=== PATIENT | female | born 1950 | race Caucasian/White ===

== ENCOUNTER 2021-11-02 00:48 | Day surgery (SDC) | payer MEDICARE, SELFPAY ==
[2021-10-20 15:32] VITALS: BMI 48.4
[2021-11-02 11:48] VITALS: BP 152/86; PULSE 68; RESP 22; TEMP 36.5; O2SAT 99
[2021-11-02] MEDS: LACTATED RINGERS 1,000 ML 150 ML IV CONT (11:50)
--- NOTE | 2021-11-02 11:55 | WPDHPUPDATE1 ---
History and Physical Update Update Date/Time: 11/02/21 11:55 Stool confirmed be Hemoccult positive with iron deficient indices confirming iron deficiency anemia. Plan to proceed with colonoscopy an EGD. History and Physical has been reviewed, including an updated exam of the patient. There are NO changes in the patient's condition. Risks, benefits, and alternatives have been discussed and questions answered. Patient agrees to proceed with procedure.
--- NOTE | 2021-11-02 12:02 | WPDANESEPPF ---
Anes - Initial Pre Proc Eval Procedure: Operation Date: 11/02/21 13:00 Proposed Procedures p Esophagogastroduodenoscopy & Colonoscopy - Warren Ferreira MD Date/Time: 11/02/21 12:02 Surgeon: Warren Ferreira MD Pre Op Diagnosis: microcytic anemia Patient Data Age: 71 Gender: F Height: 1.68 m Weight: 128.2 kg Last Vital Signs Temp 97.7 F 11/02/21 11:48 Pulse 68 11/02/21 11:48 Resp 22 H 11/02/21 11:48 BP 152/86 H 11/02/21 11:48 Pulse Ox 99 11/02/21 11:48 O2 Del Method Room Air 11/02/21 11:48 Allergies Allergy/AdvReac Type Severity Reaction Status Date / Time latex Allergy Blister Verified 11/02/21 11:42 Home Medications Medication Instructions Recorded Confirmed Type acetaminophen 500 mg tablet 500 mg PO Q4H PRN Pain 01/12/19 10/20/21 History (Tylenol Extra Strength) carvedilol 25 mg tablet 25 mg PO Q12H 01/12/19 10/20/21 History hydralazine 25 mg tablet 25 mg PO TID 01/12/19 10/20/21 History potassium chloride 8 mEq 8 meq PO DAILY 01/12/19 10/20/21 History capsule,extended release apixaban 5 mg tablet (Eliquis) 5 mg PO BID 03/29/21 10/20/21 History furosemide 20 mg tablet 20 mg PO QAM 03/29/21 03/29/21 History metolazone 2.5 mg tablet 2.5 mg PO DAILY 03/29/21 10/20/21 History temazepam 15 mg capsule 15 mg PO QHS PRN Insomnia 03/29/21 10/20/21 History venlafaxine 75 mg tablet 75 mg PO DAILY 03/29/21 10/20/21 History amiodarone 200 mg tablet 200 mg PO DAILY 10/11/21 10/20/21 History pantoprazole 20 mg tablet,delayed 20 mg PO QAM 10/11/21 10/20/21 History release peg 3350-electrolytes 236 240 ml PO Q10M #4,000 mL 10/17/21 Rx gram-22.74 gram-6.74 gram-5.86 gram solution (Golytely) vit C 250 mg-vit E 90 mg-zinc 40 1 tablet PO BID 10/20/21 10/20/21 History mg-copper 1 [id number] capsule (PreserVision AREDS-2) Patient hx anesthesia problems: none Family hx anesthesia problems: none Results Review: All pre-operative results and documents have been reviewed as part of the pre-operative evaluation. [facility] Past Medical History Medical History (Updated 10/11/21 @ 14:45 by Warren Ferreira MD) CHF (congestive heart failure) GERD (gastroesophageal reflux disease) Hx of acute arthritis Hx of cataract Hx of diverticulitis of colon Hypertension Surgical History Surgical History (Updated 10/11/21 @ 14:18 by Crystal Dixon CMA) Hx laparoscopic cholecystectomy Hx of section Family History Family History (Updated 10/11/21 @ 14:18 by Crystal Dixon CMA) Father Hypertension Social History Social History (Updated 10/11/21 @ 14:19 by Crystal Dixon CMA) Social History: PT stop smoking 02/2012. Pt stated Vap at least once a day since 03/2018. Smoking packs per day: 2 Smoking cigarettes per day: 40.0 Years smoked: 30 Smoking pack-years: 60.00 Smoking status: Former smoker Tobacco type: e-cigarettes/vaping Alcohol intake: never Substance use: never Living arrangements: with family Spiritual care concerns: No Anes - Eval Final PreProcedure Day of Procedure 11/02/21 12:02 Patient weight: morbidly obese Heart: irregular rhythm Lungs: clear to auscultation Airway: Mallampati scale class III Neurological: alert and oriented Last oral intake: >/= 8 hours ASA classification: IV Emergent: no Anesthetic plan: proceed Anesthesia type and monitoring: general GIVS and standard monitoring Results Review: All pre-operative results and documents have been reviewed as part of the pre-operative evaluation. Informed Consent: The patient's anesthetic plan and its attendant risks and benefits were discussed with the patient/family/POA. Questions were solicited and answers provided to the satisfaction of the patient/family/POA.
[2021-11-02] MEDS: BENZOCAINE (*SP) 60 ML SPRAY CAN (HURRICAINE) 1 SPRAY MUCOUS MEM (12:41)
--- NOTE | 2021-11-02 13:15 | SUR.OPER ---
EGD START 1242, END 1244 COLONOSCOPY START 1250, END 1314
[2021-11-02 13:21] VITALS: BP 118/59; PULSE 70; RESP 25; O2SAT 100
[2021-11-02 13:31] VITALS: BP 133/71; PULSE 70; RESP 21; O2SAT 96
[2021-11-02 13:41] VITALS: BP 133/70; PULSE 71; RESP 22; O2SAT 93
== END 2021-11-02 13:57 | disposition home or self-care (01) ==
PROVIDERS: PCP Internal Medicine; Visit Provider Internal Medicine Gastroenterology
PROC: 0DJ08ZZ Inspection of Upper Intestinal Tract, Via Natural or Artificial Opening Endoscopic (ICD-10-PCS; CPT 43235; principal; 2021-11-02 13:00)
DX: D50.9 Iron deficiency anemia, unspecified (principal); K92.1 Melena; K64.8 Other hemorrhoids; K57.30 Diverticulosis of large intestine without perforation or abscess without bleeding; K44.9 Diaphragmatic hernia without obstruction or gangrene; K21.9 Gastro-esophageal reflux disease without esophagitis; I11.0 Hypertensive heart disease with heart failure; I50.9 Heart failure, unspecified; F17.290 Nicotine dependence, other tobacco product, uncomplicated; E66.01 Morbid (severe) obesity due to excess calories; Z68.42 Body mass index [BMI] 45.0-49.9, adult
CPT/HCPCS: 45378; 43235; J2704; J7120

== ENCOUNTER 2022-12-05 15:01 | Outpatient (CLI) | payer MEDICARE, SELFPAY ==
--- NOTE | ~2022-12-05 | MM_ITS ---
EXAMINATION: MM screening [facility] BI w alison HISTORY: Screening mammogram TECHNIQUE: Craniocaudal and mediolateral oblique 3-D tomosynthesis images were obtained and synthetic 2-D images were generated. CAD analysis was submitted and interpreted. COMPARISON: 03/26/2017, 08/03/2013, 04/01/2012, 03/25/2012 BREAST PARENCHYMAL COMPOSITION: The breasts are almost entirely fatty. FINDINGS: No suspicious mass, calcification, or architectural distortion are identified in either carmina ast to suggest malignancy. There has been no suspicious interval change. IMPRESSION: 1. No mammographic evidence of malignancy. 2. Recommend routine screening mammography in one year. BI-RADS Category 1: Negative Reviewed, dictated and finalized at location A.
--- NOTE | ~2022-12-05 | DEXA_ITS ---
Bone Density Report Name: ESTEBAN SAEZ Age: 72 Sex: Female Ethnicity: White Date of : 1950 Indication: postmenopausal; screening for osteoporosis; height loss; inflammatory bowel disease; history of glucocorticoids; Referring Provider: ISA, LALA Quintanilla Study: Bone densitometry was performed. Exam Date: December 05, 2022 Accession number: [id number] Bone Density: Region BMD T-score Z-score Classification AP Spine(L1-L4) 1.128 0.7 3.1 Normal Femoral Neck (Left) 0.545 -2.7 -0.7 Osteoporosis Total Hip (Left) 0.747 -1.6 0.2 Osteopenia Femoral Neck (Right) 0.527 -2.9 -0.8 Osteoporosis Total Hip (Right) 0.690 -2.1 -0.3 Osteopenia Total Hip Mean 0.718 -1.9 -0.1 Osteopenia World Health Organization criteria for BMD impression classify patients as: Normal (T-score at or above -1.0), Osteopenia (T-score between -1.0 and -2.5), or Osteoporosis (T-score at or below -2.5). 10-year Fracture Risk: FRAX not reported because: Some T-score for Spine Total or Hip Total or Femoral Neck at or below -2.5 Clinical Information Provided by Patient: Has taken Glucocorticoids Has the following medical conditions: Inflammatory bowel diseases Patient maximum height was 67 Menopause Age: 48 No regular weight bearing exercise Does not regularly consume dairy products Drinks caffeinated beverages Onset of menses at age 13 Number of children 2 Impression: The patient has osteoporosis, based on the Right Femoral Neck T-score. The patient has risk factors, including: history of glucocorticoid therapy. Discussion: INCREASED RISK OF FRACTURE. BONE DENSITY IS UNDESIRABLY LOW AT ONE OR MORE SKELETAL SITES, CONSISTENT WITH POSTMENOPAUSAL OSTEOPOROSIS. This patient's lowest T-score meets the World Health Organization's (WHO) criteria for osteoporosis at one or more sites (T-score -2.5 or below). In untreated patients, the risk of osteoporotic fracture increases approximately two-fold for each 1.0 SD decrease in T-score. Low bone density is not the only risk factor for fracture; also consider factors such as patient's age, frailty or poor health, risk of falling, risk of injury, previous osteoporotic fracture, family history of osteoporosis, cigarette smoking, low body weight, etc. Not everyone with low bone mineral density has osteoporosis; osteomalacia and other metabolic bone disorders should also be considered. Patients who have osteoporosis should be evaluated for specific diseases and conditions (secondary causes) that may cause or contribute to bone loss. The [place] Association of Clinical Endocrinologists (AACE) and National Osteoporosis Foundation (NOF) recommend pharmacologic intervention for all postmenopausal women whose T-score is in this range. The patient should follow a healthful lifestyle (good nutriti
== END 2022-12-05 15:02 | disposition home or self-care (01) ==
LOC: ANHIMG 15:03
PROVIDERS: PCP Internal Medicine; Visit Provider Internal Medicine
DX: Z12.31 Encounter for screening mammogram for malignant neoplasm of breast (principal); M81.0 Age-related osteoporosis without current pathological fracture; M85.852 Other specified disorders of bone density and structure, left thigh; M85.851 Other specified disorders of bone density and structure, right thigh
CPT/HCPCS: 77063; 77067; 77080

== ENCOUNTER 2025-02-17 03:45 | Day surgery (SDC) | payer MEDICARE, SELFPAY ==
[2025-02-12 13:33] VITALS: BMI 42.7
--- NOTE | 2025-02-12 13:59 | PC.NURSE ---
Spoke with patient regarding medication Eliquis. Patient verbalizes understanding that the last dose is to be taken on 02/13/25 and the Endoscopist will instruct them when to restart after the procedure.
--- OUTSIDE RECORDS SUMMARY | 2025-02-17 03:47 | XMS_ITS | Encounter Summary ---
Author Organization [facility] Address [address] [place] [address] Phone Care Team Providers Care Seo Specialist Name Role Phone Haim Dee MD Primary Care Provider Encounter Details Date Type Department Care Team (Late st Contact Info) Description 04/20/2017 Orders Only [facility] CLINCONV Provider, MD Lashanda [address] [place] [id number] Social History Tobacco Use Types Packs/Day Years Used Date Smoking Tobacco: Former Comments Unknown Sex and Gender Information Value Date Recorded Sex Assigned at Not on file 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 Historical Provider [facility] PREM LIN Final Result documented in this encounter Visit Diagnoses Not on filedocumented in this encounter Care Teams Seo Specialist Relationship Specialty Start Date End Date Haim Dee MD PCP - General 05/21/16 documented as of this encounter
--- OUTSIDE RECORDS SUMMARY | 2025-02-17 03:47 | XMS_ITS | Encounter Summary ---
Author Organization [facility] Address [address] [place] [address] Phone Care Team Providers Care Roll Up Guider Operator Name Role Phone Haim Dee MD Primary Care Provider Encounter Details Date Type Department Care Team (Late st Contact Info) Description 02/12/2025 Telephone [facility] Medicine Cardiology [address] [facility] Advanced Medicine 8th [place] [address] [place] [phone] Lamont Braun MD [address] [facility] [address] [place], [place] [id number] Social History Tobacco Use Types Packs/Day Years Used Date Smoking Tobacco: Some Days Cigarettes Last attempted to quit: 03/22/2012 Vaping Smokeless Tobacco: Never Comments:vaps Alcohol Use Standard Drinks/Week Comments Yes 0 (1 standard drink = 0.6 oz pur e alcohol) rarely AUDIT-C Answer Date Recorded Q1: How often do you have a drink containing alc ohol? Monthly or less 10/26/2020 Q2: How many drinks containi ng alcohol do you have on a typical day when you are drinking? 1 or 2 10/26/2020 Q3: How often do you have si x or more drinks on one occasion? 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 She will call back if she does not receive. ASSET MANAGER * Telephone Encounter - Angelica Soliman - 02/12/2025 1:08 PM CST Kade Ware w/ [employer] calling and states she did not receive fax. Please try the following number: FAX [phone] ASSET MANAGER * Telephone Encounter - Shani Arenas RN - 02/12/2025 11:04 AM REO ASSET MANAGER Called and spoke to Jeanie at [facility]. Verified fax number with her as form has already been faxed x2. She confirmed correct fax number. Form faxed again. She states she will call back this afternoon if he has not received and provide another fax number. ASSET MANAGER * Telephone Encounter - Minna Grace - 02/12/2025 10:45 AM CST Kade Ware with [employer] calling re: Holding Medication Form for pt. Pls refer to Enc dated 02/08/25 re: Clearance faxed Looks like it was scanned into the system on 01/27/95. She has not recvd this completed and signed form as of yet. Pt is needing to hold her Plavix beginning tomorrow, 02/13/25. She did recv the CRMD form. Pls send as soon as possible ASSET MANAGER documented in this encounter Plan of Treatment Not on file documented as of this encounter Visit Diagnoses Not on filedocumented in this encounter Care Teams Roll Up Guider Operator Relationship Specialty Start Date End Date Haim Dee MD PCP - General 05/21/16 documented as of this encounter
--- OUTSIDE RECORDS SUMMARY | 2025-02-17 03:47 | XMS_ITS | Encounter Summary ---
Author Organization [facility] Address [address] [place] [address] Phone Care Team Providers Care Cook Soup Name Role Phone Haim Dee MD Primary Care Provider Encounter Details Date Type Department Care Team (Late st Contact Info) Description 02/08/2025 Telephone [facility] Medicine Cardiology [address] [facility] Advanced Medicine 8th [place] [address] [place] [phone] Lamont Braun MD [address] [facility] [phone] [phone] Social History Tobacco Use Types Packs/Day Years [...] on file 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 CREW LABORER * Telephone Encounter - Candice Smith - 02/08/2025 4:08 PM CST Kade Vance fax clearance that was sent over on 01/27/25 to [facility]. FAX # [phone] CREW LABORER documented in this encounter Plan of Treatment Not on file documented as of this encounter Visit Diagnoses Not on filedocumented in this encounter Care Teams Cook Soup Relationship Specialty Start Date End Date Haim Dee MD PCP - General 05/21/16 documented as of this encounter
--- OUTSIDE RECORDS SUMMARY | 2025-02-17 03:47 | XMS_ITS | Encounter Summary ---
Author Organization [facility] Address [address] [place] [address] Phone Care Team Providers Care Pressure Dispatcher Name Role Phone Haim Dee MD Primary Care Provider Encounter Details Date Type Department Care Team (Late st Contact Info) Description 03/20/2016 Orders Only [facility] CAR CLINCONV Provider, MD Lashanda [address] [place] [id number] Social History Tobacco Use Types Packs/Day Years Used Date Smoking Tobacco: Never Assessed Comments Unknown Sex and Gender Information Value Date Recorded Sex Assigned at Not on file 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 Historical Provider [facility] CARDIAC SERVICES PREM LIN Final Result documented in this encounter Visit Diagnoses Not on filedocumented in this encounter Care Teams Pressure Dispatcher Relationship Specialty Start Date End Date Haim Dee MD PCP - General 05/21/16 documented as of this encounter
--- OUTSIDE RECORDS SUMMARY | 2025-02-17 03:47 | XMS_ITS | Clinical Summary ---
Author Organization [facility] al Address [address] [place] [address] Care Team Providers Care Application Packaging Specialist Name Role Phone Haim Dee MD Primary Care Provider Allergies Active Allergy Reactions Criticality Noted Date Comments Latex Blisters High 06/30/2019 Medications acetaminophen (TYLENOL) 500 mg tablet Take 2 tablets (1,000 mg total) by mouth 2 (two) times a day Active metroNIDAZOLE (FLAGYL) 500 mg tabletIndicatio ns:DIVERTICULIT IS Take 1 tablet (500 mg total) by mouth 3 (three) times a day Active temazepam (RESTORIL) 30 mg capsule Take 1 capsule (30 mg total) by mouth nightly 08/21/2021 Active venlafaxine XR (EFFEXOR-XR) 75 mg 24 hr capsule Take 1 capsule (75 mg total) by mouth daily 08/29/2021 Active bumetanide (BUMEX) 1 mg tablet Take 1 tablet (1 mg total) by mouth every morning 01/23/2022 Active spironolactone (ALDACTONE) 25 mg tablet Take 1 tablet (25 mg total) by mouth every morning 01/22/2022 Active alendronate (FOSAMAX) 70 mg tablet Take 1 tablet (70 mg total) by mouth once a week 1/2 tablet every seven days Active iron,carbonyl-v itamin C 65 mg iron- 125 mg tablet,delayed release (DR/EC) Take by mouth Active carvediloL (COREG) 25 mg tablet Take 1.5 tablets (37.5 mg total) by mouth 2 (two) times a day with meals 405 tablet 3 01/01/2024 Active Eliquis 5 mg tablet TAKE 1 TABLET(5 MG) BY MOUTH TWICE DAILY 180 tablet 3 05/27/2024 Active olmesartan (BENICAR) 5 mg tablet Take 1 tablet (5 mg total) by mouth nightly 05/12/2024 Active Bacillus coagulans/inuli n (PROBIOTIC WITH PREBIOTIC ORAL) Take by mouth Active amiodarone (PACERONE) 200 mg tablet TAKE 1 TABLET(200 MG) BY MOUTH EVERY NIGHT 90 tablet 12/24/2024 Active Active Problems Problem Noted Date Diagnosed Date Cardiomyopathy, dilated, nonischemic 06/20/2018 Atrial fibrillation 11/20/2017 LBBB (left bundle branch block) 11/20/2017 Cardiomyopathy, idiopathic 11/20/2017 Ptosis of both eyelids 10/21/2017 Overview (10/21/2017): Added automatically from request for surgery [id number] Decreased peripheral vision of both eyes 018 Overview (10/21/2017): Added automatically from request for surgery [id number] Hyperkalemia 07/25/2015 Congestive heart failure 04/18/2012 Hypertension Resolved Problems Problem Noted Date Diagnosed Date Resolved Date ICD (implantable cardioverte r-defibrillator) in place 11/20/2017 09/14/2021 Encounters Date Type Department Care Team Description 02/12/2025 Telephone [facility] Cardiology [address] [facility] 8th [place] [address] [place] [address] Lamont Braun MD 02/08/2025 Telephone [facility] Cardiology [address] [facility] 8th [place] [address] [place] [address] Lamont Braun MD 01/27/2025 Telephone [facility] Cardiology [address] [facility] 8th [place] [address] [place] [address] Cristhian Reagan 01/27/2025 Documentation [facility] Medicine Cardiology [address] [facility] 8th [place] [address] [place] [phone] Brianda Shoemaker, LORI 12/23/2024 4:00 PM CDT Lab [facility] Endocrinology Metabolism and Lipid [facility] [address] [phone] Persistent atrial fibrillation (HCC); High risk medication use 12/23/2024 3:30 PM CDT Office Visit [facility] Cardiology [address] [place] [address] [place] [phone] Lalitha Britton NP High risk medication use (Primary Dx); Persistent atrial fibrillation (HCC) 12/23/2024 2:45 PM CDT Ancillary Procedure [facility] Cardiology [address] [place] [phone] Cardiomyopathy, dilated, nonischemic (HCC) (Primary Dx); NICM (nonischemic cardiomyopathy) (HCC); Fitting and adjustment of automatic implantable cardioverter-defibr illator; Persistent atrial fibrillation (HCC); LBBB (left bundle branch block) 12/23/2024 1:15 PM CDT Office Visit [facility] Cardiology [address] [place] [phone] Lamont Braun MD Cardiomyopathy, dilated, nonischemic (HCC) (Primary Dx); LBBB (left bundle branch block); Paroxysmal atrial fibrillation (HCC) 12/23/2024 Results Follow-Up [facility] Cardiology [address] [facility] Medical Office Building [address] [place] [address] Lalitha Britton NP ECG 12 lead 12/10/2024 Remote Device Check [facility] Cardiology [address] [place] [phone] Curt Duggan MD from Last 3 Months Immunizations Immunization Administration Dates Next Due Influenza, Unspecified 11/26/2019 Surgical History Surgery Date Site/Laterality Comments CT DELIVERY ONLY Section - (Added by TW Conv) CT CHOLECYSTECTOMY Cholecystectomy - (Added by TW Conv) CATARACT EXTRACTION Bilateral Left eye 2013/Right eye 2017 COLONOSCOPY CARDIAC DEFIBRILLATOR PLACEMENT 03/04/2012 - 03/03/2013 biventricular BLEPHAROPTOSIS REPAIR 11/22/2017 Bilateral S/P Bilateral upper eyelid ptosis repair with levator advancement . CARPAL TUNNEL RELEASE 07/03/2019 - 08/02/2019 Left Medical History Medical History Date Comments Atrial fibrillation (HCC) Cardiomyopathy, dilated, nonischemic (HCC) GERD (gastroesophageal reflux disease) Hypertension Sleep apnea 2012 uses CPAP Family History Medical History Relation Name Comments Heart defect Mother Family history of cardiomegaly - (Added by TW Conv)/Family history of cardiomegaly - (Added by TW Conv) Anesthesia problems Neg Hx Relation Name Status Comments Mother Social History Tobacco Use Types Packs/Day Years Used Date Smoking Tobacco: Some Days Cigarettes Last attempted to quit: 03/22/2012 Vaping Smokeless Tobacco: Never Tobacco Cessation:Ready to Q uit: Not Asked; Counseling Given: Not Answered Comments:vaps Alcohol Use Standard Drinks/Week Comments Yes [...] on file 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 Gender Identity Not on file Sexual Orientation Not on file Last Filed Vital Signs Vital Sign Reading Time Taken Comments Blood Pressure 104/68 12/23/2024 2:11 PM CDT Pulse 68 12/23/2024 2:11 PM CDT Temperature 36.6 C (97.9 F) 11/29/2020 11:38 AM CDT Respiratory Rate 24 10/26/2020 10:10 AM CDT Oxygen Saturation 99% 12/23/2024 2:11 PM CDT Inhaled Oxygen Concentration - - Weight 119.7 kg (264 lb) 12/23/2024 2:11 PM CDT Height 170.2 cm (5' 7) 12/23/2024 2:11 PM CDT Body Mass Index 41.35 12/23/2024 2:11 PM CDT Plan of Treatment Health Maintenance Due Date Last Done Comments Depression Screening 1950 Hepatitis C Screening 1950 Osteoporosis Screening-Bone Density Scan 1948 Hepatitis B Screening 1966 Well Visit 65+ 2013 Pneumococcal vaccine 65+ (2 of 2 - PPSV23, PCV20, or PCV21) 04/20/2014 02/23/2014 Zoster Vaccine (2 of 3) 05/27/2014 04/01/2014 Fall Risk Assessment 10/26/2021 10/26/2020 Covid-19 Vaccine (4 - 2024-2 6 season) 2024 03/08/2021, 06/12/2020, 05/19/2020 Influenza Vaccine (#1) 2024 , 12/19/2021, 11/26/2019, Additional history exists DTaP/Tdap/Td Vaccine (2 - Td or Tdap) 12/28/2028 12/28/2018 Breast Cancer Screening-Mammogram Discontinued 023 Medical Devices Implanted Type Area Risk Control Field Representative Device Identifier Shelf Expiration Date Model / Serial / Lot Icd ICD Left: Chest [facility] [employer] Medical Description:[employer]arshil pacemak er/defibrillator [employer] [id number] Quadra Assura Mp 60l12to Df-4 Is4 Is-1 Connector [id number] - [id number] - [id number] Implanted:Qty: 1 on 03/14/2020 by Curt Duggan MD at [facility] ICD [facility] [employer] 03/03/2022 [id number] / [id number] / Description:Bi-V ICD generat or Procedures Procedure Name Priority Date/Time Associated Diagnosis Comments ALT Routine 12/23/2024 3:21 PM CDT Persistent atrial fibrillation (HCC) High risk medication use AST Routine 12/23/2024 3:21 PM CDT Persistent atrial fibrillation (HCC) High risk medication use TSH Routine 12/23/2024 3:21 PM CDT Persistent atrial fibrillation (HCC) High risk medication use T4, FREE Routine 12/23/2024 3:21 PM CDT Persistent atrial fibrillation (HCC) High risk medication use ECG 12-LEAD Routine 12/23/2024 2:28 PM CDT Persistent atrial fibrillation (HCC) DEVICE CHECK - IN OFFICE Routine 12/23/2024 1:20 PM CDT NICM (nonischemic cardiomyopathy) (HCC) Fitting and adjustment of automatic implantable cardioverter-defibril lator Persistent atrial fibrillation (HCC) LBBB (left bundle branch block) Cardiomyopathy, dilated, nonischemic (HCC) DEVICE CHECK - REMOTE Routine 12/10/2024 from Last 3 Months Results * ALT (12/23/2024 3:21 PM CDT) ALT (SGPT) 13 6 - 53 IU/L [facility] Blood 12/23/2024 3:21 PM CDT 12/23/2024 4:13 PM CDT Lalitha Britton NP LAB BLOOD ORDERABLES Fin al Result Performing Organization Address [facility] Co de Phone Number [facility] * AST (12/23/2024 3:21 PM CDT) AST (SGOT) 14 11 - 47 IU/L [facility] Blood 12/23/2024 3:21 PM CDT 12/23/2024 4:13 PM CDT Lalitha Britton NP LAB BLOOD ORDERABLES Fin al Result Performing Organization Address [facility] Co de Phone Number [facility] * TSH (12/23/2024 3:21 PM CDT) TSH (Thyrotropin) 2.06 0.27 - 4.20 uIU/mL [facility] Blood 12/23/2024 3:21 PM CDT 12/23/2024 4:13 PM CDT Lalitha Britton AUTOMATIC GRINDING MACHINE OPERATOR LAB BLOOD ORDERABLES Fin al Result Performing Organization Address [facility]/ZIP Co de Phone Number [facility] * T4, free (12/23/2024 3:21 PM CDT) Free T4 1.20 0.80 - 1.80 ng/dL [facility] Blood 12/23/2024 3:21 PM CDT 12/23/2024 4:13 PM CDT Lalitha Britton AUTOMATIC GRINDING MACHINE OPERATOR LAB BLOOD ORDERABLES Fin al Result Performing Organization Address [facility] de Phone Number [facility] * ECG 12 lead (12/23/2024 2:28 PM CDT) Lalitha Britton AUTOMATIC GRINDING MACHINE OPERATOR ECG ORDERABLES Edited R esult - Final * DEVICE CHECK - IN OFFICE (12/23/2024 1:20 PM CDT) Anatomical Region Laterality Modality Other 12/23/2024 12/23/2024 Narrative 12/24/2024 10:03 PM CDT In-clinic interrogation of CLOTH CALENDER-D Incision Site: Left pectoral site without inflammation or adherence Device Functionality Device: Normal function Lead trends: Appear stable Estimated battery longevity: 1 years 3 months Atrial pacin.0% BiV pacin.0% Interrogation Presenting rhythm: APVP + PVCs Underlying rhythm: sinus rhythm Heart rate histograms: nml Episodes Ventricular high-rate episodes: none Atrial high-rate episodes: 3 EGMs show noise on atrium and LV short duration 10- 12 seconds AT/AF Blum:0 % Programming Changes: no changes Plan: will continue with BEBE and will return when okay by Lalitha Britton NP Procedure Note Curt Duggan MD - 10/23/2025 In-clinic interrogation of CLOTH CALENDER-D Incision Site: Left pectoral site without inflammation or adherence Device Functionality Device: Normal function Lead trends: Appear stable Estimated battery longevity: 1 years 3 months Atrial pacin.0% BiV pacin.0% Interrogation Presenting rhythm: APVP + PVCs Underlying rhythm: sinus rhythm Heart rate histograms: nml Episodes Ventricular high-rate episodes: none Atrial high-rate episodes: 3 EGMs show noise on atrium and LV shortduration 10- 12 seconds AT/AF Blum:0 % Programming Changes: no changes Plan: will continue with BEBE and will return when okay by Lalitha Britton NP us Curt Duggan MD [facility] CARDIAC SERVICES PRO CEDURES Final Result * DEVICE CHECK - REMOTE (12/10/2024) Anatomical Region Laterality Modality Other 12/10/2024 12/10/2024 Narrative 12/24/2024 10:02 PM CDT Device Summary Remote interrogation of Ford ([employer]arshil) CLOTH CALENDER-D Date of Implant: Mar 14, 2020 Programmed Mode: DDD Lower Rate: 70 bpm Device Functionality Presenting rhythm: Ap-BiVp 70 Device: Normal function Estimated Battery Longevity: 1 years 2 months. Leads: Appear stable Atrial Pacin.0 % CLOTH CALENDER Pacin.0 % Episodes since 09-10-24 No SVT / VT / VF episodes AT/AF burden: 0% Atrial mode switches due to noise / over-sensing LORENA Ragland RN Procedure Note Curt Duggan MD - 12/24/2024 Device Summary Remote interrogation of Ford ([employer]arshil) CLOTH CALENDER-D Date of Implant: Mar 14, 2020 Programmed Mode: DDD Lower Rate: 70 bpm Device Functionality Presenting rhythm: Ap-BiVp 70 Device: Normal function Estimated Battery Longevity: 1 years 2 months. Leads: Appear stable Atrial Pacin.0 % CLOTH CALENDER Pacin.0 % Episodes since 09-10-24 No SVT / VT / VF episodes AT/AF burden: 0% Atrial mode switches due to noise / over-sensing LORENA Ragland RN us Curt Duggan MD CV CARDIAC SERVICES PRO CEDURES Final Result from Last 3 Months Insurance UHC MEDICARE ADVANTAGE AET MEDICARE [facility] MEDICARE Address: [facility] [address] [place] [address] [facility] MED[facility] Advance Directives For more information, please contact: [phone] * Full Code (Latest Code Status on File) Date Activated Date Inactivated Comments 10/26/2020 9:36 AM 10/26/2020 2:33 PM * Full Code Date Activated Date Inactivated Comments 10/21/2017 10:27 AM 10/21/2017 12:27 PM Care Teams Application Packaging Specialist Relationship Specialty Start Date End Date Hiam Dee MD PCP - General 05/21/16
--- OUTSIDE RECORDS SUMMARY | 2025-02-17 03:47 | XMS_ITS | Encounter Summary ---
Author Organization [facility] Address [address] [place] [address] Phone Care Team Providers Care Buckle Stringer Name Role Phone Haim Dee MD Primary Care Provider Encounter Details Date Type Department Care Team (Late st Contact Info) Description 12/23/2024 Results Follow-Up [facility] Medicine Cardiology [address] [facility] Medical Office Building [address] [place] [address] Lalitha Britton, JEREMIAS [address] [address] ECG 12 lead Social History Tobacco Use Types Packs/Day Years [...] on file 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
--- OUTSIDE RECORDS SUMMARY | 2025-02-17 03:47 | XMS_ITS | Encounter Summary ---
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 Gender Identity Not on file Sexual Orientation Not on file documented as of this encounter Plan of Treatment Not on file documented as of this encounter Procedures Procedure Name Priority Date/Time Associated Diagnosis Comments CARDIOLOGY DOCUMENT SCAN 05/08/2022 documented in this encounter Results * CARDIOLOGY DOCUMENT SCAN (05/08/2022) Anatomical Region Laterality Modality Other us Provider Scanning [facility] C[facility]AC SERVICES PROCEDURES Final Result documented in this encounter Visit Diagnoses Not on filedocumented in this encounter Care Teams Staff Reporter Relationship Specialty Start Date End Date Haim Dee MD PCP - General 05/21/16 documented as of this encounter
--- OUTSIDE RECORDS SUMMARY | 2025-02-17 03:47 | XMS_ITS | Encounter Summary ---
Author Organization [facility] Address [address] [place] [address] Phone Care Team Providers Care Weight Loss Sales Consultant Name Role Phone Haim Dee MD Primary Care Provider Encounter Details Date Type Department Care Team (Latest Contact Info) Description 02/06/2018 Orders Only [facility] Scanning, Provider Social History Tobacco Use Types Packs/Day Years Used Date Smoking Tobacco: Former Cigarettes Q uit: 03/22/2012 Smokeless Tobacco: Current Comments:vaps Alcohol Use Standard Drinks/Week Comments Yes 0 (1 standard drink = 0.6 oz pur e alcohol) rarely Comments Unknown Sex and Gender Information Value Date Recorded Sex Assigned at Not on file 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 Gender Identity Not on file Sexual Orientation Not on file documented as of this encounter Progress Notes * Lamont Braun MD - 02/06/2018 11:59 PM CST No acute CV findings here documented in this encounter Plan of Treatment Not on file documented as of this encounter Procedures Procedure Name Priority Date/Time Associated Diagnosis Comments SCAN - RADIOLOGY/IMAGING 02/06/2018 documented in this encounter Results * SCAN - RADIOLOGY/IMAGING (02/06/2018) Anatomical Region Laterality Modality Other us Provider Scanning Final Result documented in this encounter Visit Diagnoses Not on filedocumented in this encounter Care Teams Weight Loss Sales Consultant Relationship Specialty Start Date End Date Haim Dee MD PCP - General 05/21/16 documented as of this encounter
--- OUTSIDE RECORDS SUMMARY | 2025-02-17 03:47 | XMS_ITS | Encounter Summary ---
Author Organization [facility] Address [address] [place] [address] Phone Care Team Providers Care Front Desk Admin Name Role Phone Haim Dee MD Primary Care Provider Encounter Details Date Type Department Care Team (Late st Contact Info) Description 03/24/2017 Orders Only [facility]INCON[facility] Provider, MD Lashanda [address] [place] [id number] Social History Tobacco Use Types Packs/Day Years Used Date Smoking Tobacco: Never Assessed Comments Unknown Sex and Gender Information Value Date Recorded Sex Assigned at Not on file Legal Sex Female 2:31 AM ADMINISTRATIVE SUPPORT ASSOC Gender Identity Not on file Sexual Orientation Not on file documented as of this encounter Plan of Treatment Not on file documented as of this encounter Procedures Procedure Name Priority Date/Time Associated Diagnosis Comments CARDIOLOGY REPORT 03/24/2017 documented in this encounter Results * CARDIOLOGY REPORT (03/24/2017) Anatomical Region Laterality Modality Other Narrative 03/24/2017 Ordered by an unspecified provider. Historical Provider [facility] CARDIAC SERVICES PREM LIN Final Result documented in this encounter Visit Diagnoses Not on filedocumented in this encounter Care Teams Front Desk Admin Relationship Specialty Start Date End Date Haim Dee MD PCP - General 05/21/16 documented as of this encounter
--- OUTSIDE RECORDS SUMMARY | 2025-02-17 03:47 | XMS_ITS | Encounter Summary ---
Author Organization [facility] Address [address] [place] [address] Phone Care Team Providers Care Boiler Welder Name Role Phone Haim Dee MD Primary Care Provider Encounter Details Date Type Department Care Team (Late st Contact Info) Description 09/27/2016 Orders Only [facility] CLINCONV Provider, MD Lashanda [address] [place] [address] Social History Tobacco Use Types Packs/Day Years Used Date Smoking Tobacco: Never Assessed Comments Unknown Sex and Gender Information Value Date Recorded Sex Assigned at Not on file 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 Historical Provider CV CARDIAC SERVICES PREM LIN Final Result documented in this encounter Visit Diagnoses Not on filedocumented in this encounter Care Teams Boiler Welder Relationship Specialty Start Date End Date Haim Dee MD PCP - General 05/21/16 documented as of this encounter
--- OUTSIDE RECORDS SUMMARY | 2025-02-17 03:47 | XMS_ITS | Encounter Summary ---
Author Organization [facility] Address [address] [place] [address] Phone Care Team Providers Care Tobacco Stripper Hand Name Role Phone Haim Dee MD Primary Care Provider Encounter Details Date Type Department Care Team (Late st Contact Info) Description 05/02/2017 Orders Only [facility]INCON[facility] Provider, MD Lashanda [address] [place] [address] Social History Tobacco Use Types Packs/Day Years Used Date Smoking Tobacco: Former Comments Unknown Sex and Gender Information Value Date Recorded Sex Assigned at Not on file Legal Sex Female 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 Historical Provider CV CARDIAC SERVICES PREM LIN Final Result documented in this encounter Visit Diagnoses Not on filedocumented in this encounter Care Teams Tobacco Stripper Hand Relationship Specialty Start Date End Date Haim Dee MD PCP - General 05/21/16 documented as of this encounter
--- OUTSIDE RECORDS SUMMARY | 2025-02-17 03:48 | XMS_ITS | Data Portability ---
Author Organization [place] - [facility] [employer], Main Office Address [address] [place] [address] Assessment No assessment recorded. Plan of Treatment Reminders Order Date Submit Date Provider Last Modified By Organization Details Last Modified Time Details Appointments None recorded. Lab vitamin D, 25-hydroxy, total, serum 2024 [facility], [address] [place], [address], 08:53:37 CBC w/ auto diff 2024 [facility], [address] [place], [address], 15:04:43 CMP, serum or plasma 2024 [facility], [address] [place], [address], 15:06:18 lipid panel, serum 2024 [facility], [address] [place], [address], 15:06:20 TSH, serum or plasma 2024 [facility], [address] [place], [address], 16:42:21 T4, free, serum 2024 [facility], [address] [place], [address], 16:42:11 TSH, serum or plasma 2024 025 [email or web address] [facility], [address] [place], [address], 5 17:19:28 T4, free, serum 2024 025 [email or web address] [facility], [address] [place], [address], 5 17:19:28 CMP, serum or plasma 2024 025 [email or web address] [facility], [address] [place], [address], 5 17:19:29 CBC w/ auto diff 2024 025 [email or web address] [facility], [address] [place], [address], 5 17:19:29 HbA1c (hemoglobin A1c), blood 2024 025 [email or web address] [facility], [address] [place], [address], 5 17:19:28 TSH, serum or plasma 2023 024 [facility], [address] [place], [address], 19:08:12 T4, free, serum 2023 024 [facility], [address] [place], [address], 4 19:07:40 CBC w/ auto diff 2023 024 [facility], [address] [place], [address], 4 18:42:32 PTH (parathyroi d hormone), intact, serum or plasma 2023 [facility], [address] [place], [address], 4 19:07:25 phosphorus, serum or plasma 2023 [facility], [address] [place], [address], 4 18:31:13 vitamin D, 25-hydroxy, total, serum 2023 [email or web address] [facility], [address] [place], [address], 4 16:45:11 urinalysis complete, reflex culture 2023 [email or web address] [facility], [address] [place], [address], 4 16:45:12 TSH, serum or plasma 2023 [facility], [address] [place], [address], 4 20:48:19 T4, free, serum 2023 [facility], [address] [place], [address], 4 20:38:51 CMP, serum or plasma 2023 [facility], [address] [place], [address], 4 20:20:35 CBC w/ auto diff 2023 [facility], [address] [place], [address], 4 19:08:39 lipid panel, serum 2023 024 [facility], [address] [facility], [place], [address], 4 20:20:31 Referral cardiologis t referral 2024 025 [email or web address] Not available 10:55:26 Procedures None recorded. Surgeries None recorded. Imaging None recorded. Medication Orders lorazepam 0.5 mg tablet 2024 025 [id number], [address], [place], [place], [id number], 12:48:48 Patient TargetsNo targets recorded. Patient Instructions Encounter Date Encounter Id Patient Instructions Last Modified By Organization Details Last Modified Time 08/13/2023 [id number] Follow-up primar y cardiomyopathy, hypertension, persistent atrial fibrillation, chronic kidney disease stage IIIB and obesity class three. Clinically stable. No interval complaints any new problems. Did have a discussion with the patient about a possible Watchman device for atrial fibrillation. She would like to be able to reduce some of her medication. Has also had some problems in the morning with nausea and vomiting. Will start back on some Reglan to see if there is an improvement in gastric emptying from reflux etc.. Will check blood work consisting of CBC, CMP, lipid and thyroid. Continue on current Rx follow-up in four months Next Appointment: 4 Months Approximate Date: 12/11/2023 Portions of the record may have been created with voice recognition software. Occasional wrong-word or s ound-a-like substitutions may have occurred due to the inherent limitations of voice recognition software. Read the chart carefully and recognize, using context, where substitutions have occurred. [email or web address] Not available 08/13/2023 15:17:00 12/10/2023 [id number] dementia rating scale-2* [email or web address] Not available 12/10/2023 16:09:12 alcohol misuse* [email or web address] Not available 12/10/2023 16:09:12 depression screening* [email or web address] Not available 12/10/2023 16:09:13 Timed Up and Go test (TUG)* [email or web address] Not available 12/10/2023 16:09:13 multi-dimensiona l health assessment questionnaire* [email or web address] Not available 12/10/2023 16:09:12 Personalized [facility] Plan and Screening Recommendations Advance Directives - Do you have one? Yes Advance Directives - Do we have your advance directive on file in your health record? No, please bring in a copy at your earliest convenience Primary Prevention/Interven tion (prevents or decreases the chance of common diseases from occurring) Smoking Risk: Non Smoker Alcohol Misuse Screening: Negative Weight: Overweight try to lose 10% of your body weight Physical activity: Need more exercise/physical activity Nutrition: Average Eat heart healthy diet Fall Risk (screened today): Intermediate Recommend regular use of cane or walker Vaccines Pneumococcal: No further needed Influenza: Your next one in the fall of this year Chronic Disease Risks Stroke: Intermediate Risk Active diagnosis, Continue current treatment plan Heart Attack: Intermediate Risk Active diagnosis, Continue current treatment plan Clogging of the Arteries: Low risk I have no recommendations Diabetes: Intermediate Risk Drastically limit sugar and products made with any type of flour (bread, pasta, cereal, cookies, crackers, etc.) Secondary Prevention/Interven tion (detects treatable diseases before they may cause symptoms, disability, or ) Breast Cancer Screening with mammogram: Recommended today Cervical/Uterine/Ov jes Cancer Screening: No screening necessary Osteoporosis Screening: up to date Date Screening Last Performed: Colon Cancer Screening: Colonoscopy Date Screening Last Performed: Eye Disease Screening: Your next exam in: goes every 8 wks Dementia Risk: Low I have no recommendations Depression Screening: Negative Active diagnosis, Continue current treatment plan [email or web address] Not available 12/10/2023 15:42:39 Medicare wellnes s evaluation risk assessment stable. Follow-up for hypertension, atrial fibrillation, osteoporosis, chronic kidney disease stage IIIB and obesity class three all clinically stable. Will check blood work. Continue on current Rx. Follow-up in four months. Was given a Prevnar 20 shot as well as a flu shot. Follow Up: 4 Months Approximate Date: 04/08/2024 Portions of the record may have been created with voice recognition software. Occasional wrong-word or s ound-a-like substitutions may have occurred due to the inherent limitations of voice recognition software. Read the chart carefully and recognize, using context, where substitutions have occurred. [email or web address] Not available 12/10/2023 16:08:51 04/14/2024 [id number] Follow-up mary jo hu hypertension, cardiomyopathy, paroxysmal atrial fibrillation, chronic kidney disease stage IIIB and obesity class three. Will check some blood work in the form of CBC, CMP, thyroid, lipid, hemoglobin A1c and start on some Wegovy see if there is any improvement in her obesity status. Will continue on current Rx followed back up in two months. Additional Orders - Directives - Recommendations 1. Trial of Wegovy 0.25 mg once a week followed by 0.5 mg follow-up in two months Follow Up: 2 Months Approximate Date: 06/13/2024 Portions of record are template driven. When necessary additional context will be provided. Additionally some portions have been created with voice recognition software. Occasional wrong-word or s ound-a-like substitutions may have occurred due to the inherent limitations of voice recognition software. Read the chart carefully and recognize, using context, where substitutions may have occurred. Created: Haim Dee M.D. 04.14.2024 02:28 PM [email or web address] Not available 04/14/2024 15:28:22 08/11/2024 [id number] History of hypertension, paroxysmal atrial fibrillation, chronic kidney disease stage IIIB, essential tremor, sleep apnea and obesity all clinically stable. Will continue on current Rx. Is being followed by Nephrology let them do any additional blood tests at this time. Is doing well otherwise. Follow-up in four months Follow Up: 4 Months Approximate Date: 12/09/2024 Portions of record are template driven. When necessary additional context will be provided. Additionally some portions have been created with voice recognition software. Occasional wrong-word or s ound-a-like substitutions may have occurred due to the inherent limitations of voice recognition software. Read the chart carefully and recognize, using context, where substitutions may have occurred. Created: Haim Dee M.D. 08.11.2024 02:13 PM Not available 08/11/2024 15:13:08 12/30/2024 [id number] [facility]. Follow-up for primary cardiomyopathy, hypertension, persistent atrial fibrillation, GERD, history of diverticulitis of the colon as well as obesity class three. Clinically stable but is feeling somewhat anxious and nervous. Will add some low-dose lorazepam 0.5 mg t.i.d. On a PRN basis to see if there is any improvement. Continue with current Rx. Will check blood work consisting of CBC, CMP, lipid, thyroid and vitamin-D level. Follow-up in four months Advised on FDA Recommended Immunizations including but not limited to Influenza, COVID,Tetanus,TDAP, Pneumococcal,RSV and Shingles Additional Orders - Directives - Recommendations Recommended Testing 1. Mammogram 2. DEXA Scan 3. Upper Endoscopy For recurrent reflux symptomatology including nausea and vomiting. Immunizations and Vaccines 1. 2023-12 INFLUENZA 2. 2021-12 COVID BOOSTER PFIZER 3. RSV Recommended 4. Shingrix Recommended 5. Tetanus or TD Recommended Recommended Vaccine and Immunizations Discussed With Patient! Follow Up: 4 Months Approximate Date: 04/29/2025 Portions of record are template driven. When necessary additional context will be provided. Additionally some portions have been created with voice recognition software. Occasional wrong-word or s ound-a-like substitutions may have occurred due to the inherent limitations of voice recognition software. Read the chart carefully and recognize, using context, where substitutions may have occurred. Created: Haim Dee M.D. 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 Referring Physician: Haim Dee, Internal Medicine, Encounter Date: 04/14/2024 Results Created Date Observation Date Name Description Value Unit Range Abnormal Flag Note LastModifiedBy Organization Detail LastModifiedTime 08/13/1908/13/2023 CBC/C OMPLE TE BLD COUNT W/DIF F white blood cells 5.8 x10'3 /uL 4.2-10 .8 Not Available [facility] (Lab) [address] [place], [address], 08/13/2023 19:38:26 08/13/19 24 08/13/2023 CBC/C OMPLE TE BLD COUNT W/DIF F red blood cells 4.13 x10'6 /uL 3.80-5 .20 Not Available [facility] (Lab) [address] [facility] [place], [address], 08/13/2023 19:38:26 08/13/19 24 08/13/2023 CBC/C OMPLE TE BLD COUNT W/DIF F hemoglobin 12.1 g/dL 12.0-1 5.6 Not Available [facility] (Lab) [address] [place], [address], 08/13/2023 19:38:26 08/13/19 24 08/13/2023 CBC/C OMPLE TE BLD COUNT W/DIF F hematocrit 38.5 % 35.7-4 5.7 Not Available [facility] (Lab) [address] [place], [address], 08/13/2023 19:38:26 08/13/19 24 08/13/2023 CBC/C OMPLE TE BLD COUNT W/DIF F mean red cell volume 93.2 fL 82.0-9 9.0 Not Available [facility] (Lab) [address] [place], [address], 08/13/2023 19:38:26 08/13/19 24 08/13/2023 CBC/C OMPLE TE BLD COUNT W/DIF F mean red cell hemoglobin 29.3 pg 27.0-3 3.0 Not Available [facility] (Lab) [address] [place], [address], 08/13/2023 19:38:26 08/13/19 24 08/13/2023 CBC/C OMPLE TE BLD COUNT W/DIF F mean RBC HGB concentratio n 31.4 g/dL 31.0-3 6.0 Not Available [facility] (Lab) [address] [place], [address], 08/13/2023 19:38:26 08/13/19 24 08/13/2023 CBC/C OMPLE TE BLD COUNT W/DIF F red cell distribution width 15.9 % 11.8-1 5.5 high Not Available [facility] (Lab) [address] [place], [address], 08/13/2023 19:38:26 08/13/19 24 08/13/2023 CBC/C OMPLE TE BLD COUNT W/DIF F platelets 155 x10'3 /uL 150-40 0 Not Available [facility] (Lab) [address] [place], [address], 08/13/2023 19:38:26 08/13/19 24 08/13/2023 CBC/C OMPLE TE BLD COUNT W/DIF F mean platelet volume 11.5 fL 9.0-12 .4 Not Available [facility] (Lab) [address] [place], [address], 08/13/2023 19:38:26 08/13/19 24 08/13/2023 CBC/C OMPLE TE BLD COUNT W/DIF F neutrophils 82 % 39.0-7 2.0 high Not Available [facility] (Lab) [address] [place], [address], 08/13/2023 19:38:26 08/13/19 24 08/13/2023 CBC/C OMPLE TE BLD COUNT W/DIF F lymphocytes 8 % 16.0-4 7.0 low Not Available [facility] (Lab) [address] [place], [address], 08/13/2023 19:38:26 08/13/19 24 08/13/2023 CBC/C OMPLE TE BLD COUNT W/DIF F monocytes 9 % 5.0-12 .0 Not Available [facility] (Lab) [address] [place], [address], 08/13/2023 19:38:26 08/13/19 24 08/13/2023 CBC/C OMPLE TE BLD COUNT W/DIF F eosinophils 1 % 1.0-7. 0 Not Available [facility] (Lab) [address] [place], [address], 08/13/2023 19:38:26 08/13/19 24 08/13/2023 CBC/C OMPLE TE BLD COUNT W/DIF F neutrophils, absolute count 4.43 x10'3 /uL 1.5-8. 0 Not Available [facility] (Lab) [address] [place], [address], 08/13/2023 19:38:26 08/13/19 24 08/13/2023 CBC/C OMPLE TE BLD COUNT W/DIF F nucleated red blood cells 0.0 % -0 Not Available [facility] (Lab) [address] [place], [address], 08/13/2023 19:38:26 08/13/19 24 08/13/2023 CBC/C OMPLE TE BLD COUNT W/DIF F NRBC# 0.00 x10'3 /uL Not Available [facility] (Lab) [address] [place], [address], 08/13/2023 19:38:26 08/13/19 24 08/13/2023 CBC/C OMPLE TE BLD COUNT W/DIF F anisocytosis OCCASI ONAL Not Available [facility] (Lab) [address] [place], [address], 08/13/2023 19:38:26 08/13/19 24 08/13/2023 LIPID PANEL cholesterol 187 mg/dL 140-19 9 NIH MARTA NSUS RECOM MENDA TION FOR TONY STERO L: ADULT CHILD LOW RISK: <200 <170 BORDE RLINE : <200- 239 ----- HIGH RISK: >240 >200 Not Available [facility] (Lab) [address] [place], [address], 08/13/2023 20:20:31 08/13/19 24 08/13/2023 LIPID PANEL triglyceride s 95 mg/dL 0-150 NIH MARTA NSUS REPOR T RECOM MENDA TION FOR TRIGL YCERI JAZ: ADULT CHILD LOW RISK: <150 ----- BODER LINE: 150-1 99 ----- HIGH RISK: >200 ----- Not Available [facility] (Lab) [address] [place], [address], 08/13/2023 20:20:31 08/13/19 24 08/13/2023 LIPID PANEL HDL cholesterol 59 mg/dL 40- Not Available [facility] (Lab) [address] [place], [address], 08/13/2023 20:20:31 08/13/19 24 08/13/2023 LIPID PANEL LDL cholesterol, calculated 109 mg/dL 0-130 NIH MARTA NSUS REPOR T RECOM MENDA TIONS FOR LDL: ADULT CHILD LOW RISK <130 <110 (OPTI MAL LDL) <100 ----- NEHA RLINE : 130-1 59 ----- HIGH RISK: >160 >130 A TRIGL YCERI DE RESUL T >400 INVAL IDATE S THE CALCU LATIO N FOR LDL FRACT IONAT ION - THE LDL RESUL T WILL NOT BE REPOR PERLITA. Not Available [facility] (Lab) [address] [place], [address], 08/13/2023 20:20:31 08/13/19 24 08/13/2023 COMPR EHENS ALEJANDRA METAB OLIC PANEL sodium 139 mmol/ L 137-14 5 Not Available [facility] (Lab) [address] [place], [address], 08/13/2023 20:20:34 08/13/19 24 08/13/2023 COMPR EHENS ALEJANDRA METAB OLIC PANEL potassium 4.9 mmol/ L 3.5-5. 1 Not Available [facility] (Lab) [address] [place], [address], 08/13/2023 20:20:34 08/13/19 24 08/13/2023 COMPR EHENS ALEJANDRA METAB OLIC PANEL chloride 107 mmol/ L 98-107 Not Available [facility] (Lab) [address] [place], [address], 08/13/2023 20:20:34 08/13/19 24 08/13/2023 COMPR EHENS ALEJANDRA METAB OLIC PANEL carbon dioxide 27 mmol/ L 22-30 Not Available [facility] (Lab) [address] [place], [address], 08/13/2023 20:20:34 08/13/19 24 08/13/2023 COMPR EHENS ALEJANDRA METAB OLIC PANEL anion gap 9.9 mmol/ L 14-22 low Not Available [facility] (Lab) [address] [place], [address], 08/13/2023 20:20:34 08/13/19 24 08/13/2023 COMPR EHENS ALEJANDRA METAB OLIC PANEL glucose 96 mg/dL 70-99 Not Available [facility] (Lab) [address] [place], [address], 08/13/2023 20:20:34 08/13/19 24 08/13/2023 COMPR EHENS ALEJANDRA METAB OLIC PANEL BUN 39 mg/dL 8-19 high Not Available [facility] (Lab) [address] [place], [address], 08/13/2023 20:20:34 08/13/19 24 08/13/2023 COMPR EHENS ALEJANDRA METAB OLIC PANEL creatinine 1.40 mg/dL 0.66-1 .25 high Not Available [facility] (Lab) [address] [place], [address], 08/13/2023 20:20:34 08/13/19 24 08/13/2023 COMPR EHENS ALEJANDRA METAB OLIC PANEL GFR 37 Refer ence Range : [place] ge GFR Healt hy Adult : >60 mL/mi n/1.7 3 m2 Chron ic Kidne y Disea se: 15-60 mL/mi n/1.7 3 m2 Kidne y Failu re: <15/m L/min /1.73 m2 www.n iddk. nih.g ov The MDRD study equat ion has not been valid ated in child taras <18 years of age; pregn ant women ; the elder ly >85 years of age; or in some racia l or ethni c subgr oups, such as Hispa nics. Outsi de the valid ated christian eters , estim ated GFR is less accur ate, requi ring clini michelle judgm ent on a case- by-ca se basis . Clini michelle inter preta tion for other races and ages must be made by the clini you. The MDRD study equat ion has not been valid ated for the evalu ation of serum creat inine relat ed to nutri shauna l statu s or medic ation usage . For perso ns <18 years of age, a pedia tric GFR calcu lator is avail able on the [facility] websi te: https ://ww w.kid valdez.o rg/pr ofess ional s/kdo qi/gf r_cal culat or Not Available [facility] (Lab) [address] [place], [address], 08/13/2023 20:20:34 08/13/19 24 08/13/2023 COMPR EHENS ALEJANDRA METAB OLIC PANEL alkaline phosphatase 107 U/L 38-126 Not Available [facility] (Lab) [address] [place], [address], 08/13/2023 20:20:34 08/13/19 24 08/13/2023 COMPR EHENS ALEJANDRA METAB OLIC PANEL alanine aminotransfe rase 16 U/L 0-35 Not Available [facility] (Lab) [address] [place], [address], 08/13/2023 20:20:34 08/13/19 24 08/13/2023 COMPR EHENS ALEJANDRA METAB OLIC PANEL aspartate aminotransfe rase 25 U/L 15-37 Not Available [facility] (Lab) [address] [place], [address], 08/13/2023 20:20:34 08/13/19 24 08/13/2023 COMPR EHENS ALEJANDRA METAB OLIC PANEL bilirubin, total 0.60 mg/dL 0.20-1 .30 Not Available [facility] (Lab) [address] [place], [address], 08/13/2023 20:20:34 08/13/19 24 08/13/2023 COMPR EHENS ALEJANDRA METAB OLIC PANEL calcium 9.3 mg/dL 8.4-10 .2 Not Available [facility] (Lab) [address] [place], [address], 08/13/2023 20:20:34 08/13/19 24 08/13/2023 COMPR EHENS ALEJANDRA METAB OLIC PANEL total protein 7.5 g/dL 6.3-8. 2 Not Available [facility] (Lab) [address] [place], [address], 08/13/2023 20:20:34 08/13/19 24 08/13/2023 COMPR EHENS ALEJANDRA METAB OLIC PANEL albumin 4.1 g/dL 3.0-4. 4 Not Available [facility] (Lab) [address] [place], [address], 08/13/2023 20:20:34 08/13/19 24 08/13/2023 COMPR EHENS ALEJANDRA METAB OLIC PANEL globulin 3.4 g/dL 2.6-4. 2 Not Available [facility] (Lab) [address] [place], [address], 08/13/2023 20:20:34 08/13/19 24 08/13/2023 COMPR EHENS ALEJANDRA METAB OLIC PANEL A/G ratio 1.2 ratio 1.0-2. 0 Not Available [facility] (Lab) [address] [place], [address], 08/13/2023 20:20:34 08/13/19 24 08/13/2023 T4 FREE free T4 1.40 NG/dL 0.78-2 .19 Not Available [facility] (Lab) [address] [place], [address], 08/13/2023 20:38:51 08/13/19 24 08/13/2023 TSH thyroid-stim ulating hormone 2.120 uIU/m L 0.465- 4.680 Not Available [facility] (Lab) [address] [place], [address], 08/13/2023 20:48:19 12/10/19 24 12/10/2023 URINA LYSIS COMPL ETE/I RIS W/RFX color YELLOW Not Available [facility] (Lab) [address] [place], [address], 12/10/2023 18:23:25 12/10/19 24 12/10/2023 URINA LYSIS COMPL ETE/I RIS W/RFX appear TURBID abnormal Not Available [facility] (Lab) [address] [place], [address], 12/10/2023 18:23:25 12/10/19 24 12/10/2023 URINA LYSIS COMPL ETE/I RIS W/RFX specific gravity 1.027 1.001- 1.030 Not Available [facility] (Lab) [address] [place], [address], 12/10/2023 18:23:25 12/10/19 24 12/10/2023 URINA LYSIS COMPL ETE/I RIS W/RFX pH 5.0 pH_un its 5.0-9. 0 Not Available [facility] (Lab) [address] [place], [address], 12/10/2023 18:23:25 12/10/1912/10/2023 URINA LYSIS COMPL ETE/I RIS W/RFX leukocytes NEGATI VE lashanda/u L negati ve- Not Available [facility] (Lab) [address] [place], [address], 12/10/2023 18:23:25 12/10/1912/10/2023 URINA LYSIS COMPL ETE/I RIS W/RFX nitrite NEGATI VE negati ve- Not Available [facility] (Lab) [address] [place], [address], 12/10/2023 18:23:25 12/10/1912/10/2023 URINA LYSIS COMPL ETE/I RIS W/RFX protein 30 mg/dL negati ve- abnormal Not Available [facility] (Lab) [address] [place], [address], 12/10/2023 18:23:25 12/10/1912/10/2023 URINA LYSIS COMPL ETE/I RIS W/RFX glucose NORMAL mg/dL normal - Not Available [facility] (Lab) [address] [place], [address], 12/10/2023 18:23:25 12/10/1912/10/2023 URINA LYSIS COMPL ETE/I RIS W/RFX ketones NEGATI VE mg/dL negati ve- Not Available [facility] (Lab) [address] [place], [address], 12/10/2023 18:23:25 12/10/19 24 12/10/2023 URINA LYSIS COMPL ETE/I RIS W/RFX urobilinogen NORMAL mg/dL normal - Not Available [facility] (Lab) [address] [place], [address], 12/10/2023 18:23:25 12/10/19 24 12/10/2023 URINA LYSIS COMPL ETE/I RIS W/RFX bilirubin NEGATI VE mg/dL negati ve- Not Available [facility] (Lab) [address] [place], [address], 12/10/2023 18:23:25 12/10/19 24 12/10/2023 URINA LYSIS COMPL ETE/I RIS W/RFX blood NEGATI VE mg/dL negati ve- Not Available [facility] (Lab) [address] [place], [address], 12/10/2023 18:23:25 12/10/1912/10/2023 URINA LYSIS COMPL ETE/I RIS W/RFX white blood cells 0-8 /i??h pfi?? 0-8 Not Available [facility] (Lab) [address] [place], [address], 12/10/2023 18:23:25 12/10/1912/10/2023 URINA LYSIS COMPL ETE/I RIS W/RFX red blood cells 0-4 /i??h pfi?? 0-4 Not Available [facility] (Lab) [address] [place], [address], 12/10/2023 18:23:25 12/10/1912/10/2023 URINA LYSIS COMPL ETE/I RIS W/RFX bacteria NONE Not Available [facility] (Lab) [address] [place], [address], 12/10/2023 18:23:25 12/10/19 24 12/10/2023 URINA LYSIS COMPL ETE/I RIS W/RFX mucous OCCASI ONAL /i??l pfi?? abnormal Not Available [facility] (Lab) [address] [place], [address], 12/10/2023 18:23:25 12/10/19 24 12/10/2023 URINA LYSIS COMPL ETE/I RIS W/RFX squamous epithelial PACKED FIELD /i??l pfi?? abnormal Not Available [facility] (Lab) [address] [place], [address], 12/10/2023 18:23:25 12/10/19 24 12/10/2023 URINA LYSIS COMPL ETE/I RIS W/RFX hyaline cast MANY /i??l pfi?? none seen- abnormal Not Available [facility] (Lab) [address] [place], [address], 12/10/2023 18:23:25 12/10/1912/10/2023 PHOSP HORUS phosphorus 3.8 mg/dL 2.5-4. 5 Not Available [facility] (Lab) [address] [facility] [place], [address], 12/10/2023 18:31:13 12/10/1912/10/2023 CBC/C OMPLE TE BLD COUNT W/DIF F white blood cells 6.5 x10'3 /uL 4.2-10 .8 Not Available [facility] (Lab) [address] [place], [address], 12/10/2023 18:45:40 12/10/1912/10/2023 CBC/C OMPLE TE BLD COUNT W/DIF F red blood cells 4.08 x10'6 /uL 3.80-5 .20 Not Available [facility] (Lab) [address] [place], [address], 12/10/2023 18:45:40 12/10/19 24 12/10/2023 CBC/C OMPLE TE BLD COUNT W/DIF F hemoglobin 12.5 g/dL 12.0-1 5.6 Not Available [facility] (Lab) [address] [place], [address], 12/10/2023 18:45:40 12/10/19 24 12/10/2023 CBC/C OMPLE TE BLD COUNT W/DIF F hematocrit 40.0 % 35.7-4 5.7 Not Available [facility] (Lab) [address] [place], [address], 12/10/2023 18:45:40 12/10/1912/10/2023 CBC/C OMPLE TE BLD COUNT W/DIF F mean red cell volume 98.0 fL 82.0-9 9.0 Not Available [facility] (Lab) [address] [place], [address], 12/10/2023 18:45:40 12/10/1912/10/2023 CBC/C OMPLE TE BLD COUNT W/DIF F mean red cell hemoglobin 30.6 pg 27.0-3 3.0 Not Available [facility] (Lab) [address] [place], [address], 12/10/2023 18:45:40 12/10/1912/10/2023 CBC/C OMPLE TE BLD COUNT W/DIF F mean RBC HGB concentratio n 31.3 g/dL 31.0-3 6.0 Not Available [facility] (Lab) [address] [place], [address], 12/10/2023 18:45:40 12/10/1912/10/2023 CBC/C OMPLE TE BLD COUNT W/DIF F red cell distribution width 14.6 % 11.8-1 5.5 Not Available [facility] (Lab) [address] [place], [address], 12/10/2023 18:45:40 12/10/1912/10/2023 CBC/C OMPLE TE BLD COUNT W/DIF F platelets 159 x10'3 /uL 150-40 0 Not Available [facility] (Lab) [address] [place], [address], 12/10/2023 18:45:40 12/10/1912/10/2023 CBC/C OMPLE TE BLD COUNT W/DIF F mean platelet volume 11.6 fL 9.0-12 .4 Not Available [facility] (Lab) [address] [place], [address], 12/10/2023 18:45:40 12/10/1912/10/2023 CBC/C OMPLE TE BLD COUNT W/DIF F neutrophils 81 % 39.0-7 2.0 high Not Available [facility] (Lab) [address] [place], [address], 12/10/2023 18:45:40 12/10/1912/10/2023 CBC/C OMPLE TE BLD COUNT W/DIF F lymphocytes 6 % 16.0-4 7.0 low Not Available [facility] (Lab) [address] [place], [address], 12/10/2023 18:45:40 12/10/1912/10/2023 CBC/C OMPLE TE BLD COUNT W/DIF F monocytes 8 % 5.0-12 .0 Not Available [facility] (Lab) [address] [place], [address], 12/10/2023 18:45:40 12/10/1912/10/2023 CBC/C OMPLE TE BLD COUNT W/DIF F eosinophils 4 % 1.0-7. 0 Not Available [facility] (Lab) [address] [place], [address], 12/10/2023 18:45:40 12/10/1912/10/2023 CBC/C OMPLE TE BLD COUNT W/DIF F basophils 1 % 0.0-2. 0 Not Available [facility] (Lab) [address] [place], [address], 12/10/2023 18:45:40 12/10/1912/10/2023 CBC/C OMPLE TE BLD COUNT W/DIF F neutrophils, absolute count 5.24 x10'3 /uL 1.5-8. 0 Not Available [facility] (Lab) [address] [place], [address], 12/10/2023 18:45:40 12/10/1912/10/2023 PARAT HY.HO RM(PT H)INT ACT-W /O CA intact parathyroid hormone 181.8 pg/mL 24.0-7 8.0 high Pleas e note new refer ence range effec tive 03/30 . Not Available [facility] (Lab) [address] [place], [address], 12/10/2023 19:07:25 12/10/19 24 12/10/2023 T4 FREE free T4 1.36 NG/dL 0.78-2 .19 Not Available [facility] (Lab) [address] [place], [address], 12/10/2023 19:07:40 12/10/19 24 12/10/2023 VITAM IN D 25-HY DROXY [id number] 32.3 NG/mL 30-100 Vitam in D Statu s: Defic ient: <20 ng/mL Insuf ficie nt: 20-29 ng/mL Suffi cient : 30-10 0 ng/mL Not Available [facility] (Lab) [address] [place], [address], 12/10/2023 19:07:50 12/10/19 24 12/10/2023 TSH thyroid-stim ulating hormone 3.760 uIU/m L 0.465- 4.680 Not Available [facility] (Lab) [address] [place], [address], 12/10/2023 19:08:11 04/29/19 25 04/30/2024 COMPR EHENS ALEJANDRA METAB OLIC PANEL glucose 104 mg/dL 65-99 high Fasti ng refer ence inter rosales For someo ne witho ut known diabe magdy, a gluco se value betwe en 100 and 125 mg/dL is consi stent with predi abete s and shoul d be confi rmed with a follo w-up test. Not Available [address], [address], 04/30/2024 06:12:22 04/29/1904/30/2024 COMPR EHENS ALEJANDRA METAB OLIC PANEL urea nitrogen (BUN) 42 mg/dL 7-25 high Not Available [facility] [address], [address], 04/30/2024 06:12:22 04/29/19 25 04/30/2024 COMPR EHENS ALEJANDRA METAB OLIC PANEL creatinine 1.38 mg/dL 0.60-1 .00 high Not Available [address], [address], 04/30/2024 06:12:22 04/29/19 25 04/30/2024 COMPR EHENS ALEJANDRA METAB OLIC PANEL eGFR 40 mL/mi n/1.7 3m2 > or = 60 low Not Available [address], [address], 04/30/2024 06:12:22 04/29/19 25 04/30/2024 COMPR EHENS ALEJANDRA METAB OLIC PANEL BUN/creatini ne ratio 30 (calc ) 6-22 high Not Available [address], [address], 04/30/2024 06:12:22 04/29/19 25 04/30/2024 COMPR EHENS ALEJANDRA METAB OLIC PANEL sodium 138 mmol/ L 135-14 6 normal Not Available [address], [address], 04/30/2024 06:12:22 04/29/19 25 04/30/2024 COMPR EHENS ALEJANDRA METAB OLIC PANEL potassium 4.6 mmol/ L 3.5-5. 3 normal Not Available [address], [address], 04/30/2024 06:12:22 04/29/19 25 04/30/2024 COMPR EHENS ALEJANDRA METAB OLIC PANEL chloride 108 mmol/ L 98-110 normal Not Available [address], [address], 04/30/2024 06:12:22 04/29/19 25 04/30/2024 COMPR EHENS ALEJANDRA METAB OLIC PANEL carbon dioxide 22 mmol/ L 20-32 normal Not Available [address], [address], 04/30/2024 06:12:22 04/29/19 25 04/30/2024 COMPR EHENS ALEJANDRA METAB OLIC PANEL calcium 9.2 mg/dL 8.6-10 .4 normal Not Available [address], [address], 04/30/2024 06:12:22 04/29/19 25 04/30/2024 COMPR EHENS ALEJANDRA METAB OLIC PANEL protein, total 7.3 g/dL 6.1-8. 1 normal Not Available [address], [address], 04/30/2024 06:12:22 04/29/19 25 04/30/2024 COMPR EHENS ALEJANDRA METAB OLIC PANEL albumin 3.7 g/dL 3.6-5. 1 normal Not Available [address], [address], 04/30/2024 06:12:22 04/29/19 25 04/30/2024 COMPR EHENS ALEJANDRA METAB OLIC PANEL globulin 3.6 g/dL_ (calc ) 1.9-3. 7 normal Not Available [address], [address], 04/30/2024 06:12:22 04/29/19 25 04/30/2024 COMPR EHENS ALEJANDRA METAB OLIC PANEL albumin/glob ulin ratio 1.0 (calc ) 1.0-2. 5 normal Not Available [address], [address], 04/30/2024 06:12:22 04/29/19 25 04/30/2024 COMPR EHENS ALEJANDRA METAB OLIC PANEL bilirubin, total 0.3 mg/dL 0.2-1. 2 normal Not Available [address], [address], 04/30/2024 06:12:22 04/29/19 25 04/30/2024 COMPR EHENS ALEJANDRA METAB OLIC PANEL alkaline phosphatase 87 U/L 37-153 normal Not Available [address], [address], 04/30/2024 06:12:22 04/29/19 25 04/30/2024 COMPR EHENS ALEJANDRA METAB OLIC PANEL AST 15 U/L 10-35 normal Not Available [address], [address], 04/30/2024 06:12:22 04/29/19 25 04/30/2024 COMPR EHENS ALEJANDRA METAB OLIC PANEL ALT 12 U/L 6-29 normal Not Available [address], [address], 04/30/2024 06:12:22 04/29/19 25 04/30/2024 CBC (INCL UDES DIFF/ PLT) white blood cell count 5.3 thous and/u L 3.8-10 .8 normal Not Available [address], [address], 04/30/2024 06:12:23 04/29/19 25 04/30/2024 CBC (INCL UDES DIFF/ PLT) red blood cell count 3.71 alfredo on/uL 3.80-5 .10 low Not Available [address], [address], 04/30/2024 06:12:23 04/29/1904/30/2024 CBC (INCL UDES DIFF/ PLT) hemoglobin 10.7 g/dL 11.7-1 5.5 low Not Available [address], [address], 04/30/2024 06:12:23 04/29/1904/30/2024 CBC (INCL UDES DIFF/ PLT) hematocrit 33.7 % 35.0-4 5.0 low Not Available [address], [address], 04/30/2024 06:12:23 04/29/1904/30/2024 CBC (INCL UDES DIFF/ PLT) MCV 90.8 fL 80.0-1 00.0 normal Not Available [address], [address], 04/30/2024 06:12:23 04/29/1904/30/2024 CBC (INCL UDES DIFF/ PLT) MCH 28.8 pg 27.0-3 3.0 normal Not Available [address], [address], 04/30/2024 06:12:23 04/29/1904/30/2024 CBC (INCL UDES DIFF/ PLT) MCHC 31.8 g/dL 32.0-3 6.0 low For adult s, a sligh t decre ase in the calcu lated MCHC value (in the range of 30 to 32 g/dL) is most likel y not clini emil signi lilian t; amaury er, it shoul d be inter prete d with [place] [facility] [place] other red cell christian eters and the patie nt's clini michelle condi tion. Not Available [address], [address], 04/30/2024 06:12:23 04/29/1904/30/2024 CBC (INCL UDES DIFF/ PLT) RDW 13.5 % 11.0-1 5.0 normal Not Available [address], [address], 04/30/2024 06:12:23 04/29/1904/30/2024 CBC (INCL UDES DIFF/ PLT) platelet count 181 thous and/u L 140-40 0 normal Not Available [address], [address], 04/30/2024 06:12:23 04/29/1904/30/2024 CBC (INCL UDES DIFF/ PLT) MPV 11.4 fL 7.5-12 .5 normal Not Available [address], [address], 04/30/2024 06:12:23 04/29/1904/30/2024 CBC (INCL UDES DIFF/ PLT) absolute neutrophils 4070 cells /uL 1500-7 800 normal Not Available [address], [address], 04/30/2024 06:12:23 04/29/1904/30/2024 CBC (INCL UDES DIFF/ PLT) absolute lymphocytes 504 cells /uL 850-39 00 low Not Available [address], [address], 04/30/2024 06:12:23 04/29/1904/30/2024 CBC (INCL UDES DIFF/ PLT) absolute monocytes 535 cells /uL 200-95 0 normal Not Available [facility] [address], [address], 04/30/2024 06:12:23 04/29/19 25 04/30/2024 CBC (INCL UDES DIFF/ PLT) absolute eosinophils 133 cells /uL 15-500 normal Not Available [address], [address], 04/30/2024 06:12:23 04/29/19 25 04/30/2024 CBC (INCL UDES DIFF/ PLT) absolute basophils 58 cells /uL 0-200 normal Not Available [facility] [address], [address], 04/30/2024 06:12:23 04/29/19 25 04/30/2024 CBC (INCL UDES DIFF/ PLT) neutrophils 76.8 % normal Not Available [address], [address], 04/30/2024 06:12:23 04/29/19 25 04/30/2024 CBC (INCL UDES DIFF/ PLT) lymphocytes 9.5 % normal Not Available [facility] [address], [address], 04/30/2024 06:12:23 04/29/19 25 04/30/2024 CBC (INCL UDES DIFF/ PLT) monocytes 10.1 % normal Not Available [facility] [address], [address], 04/30/2024 06:12:23 04/29/19 25 04/30/2024 CBC (INCL UDES DIFF/ PLT) eosinophils 2.5 % normal Not Available [facility] [address], [address], 04/30/2024 06:12:23 04/29/19 25 04/30/2024 CBC (INCL UDES DIFF/ PLT) basophils 1.1 % normal Not Available [facility] [address], [address], 04/30/2024 06:12:23 04/29/19 25 04/30/2024 T4, FREE T4, free 1.2 NG/dL 0.8-1. 8 normal Not Available [facility] [address], [address], 04/30/2024 06:12:24 04/29/19 25 04/30/2024 TSH TSH 2.89 mIU/L 0.40-4 .50 normal Not Available [facility] [address], [address], 04/30/2024 06:12:25 04/29/19 25 04/30/2024 HEMOG LOBIN A1C hemoglobin A1C 5.8 %_of_ total _HGB <5.7 high For somemarylin ne witho ut known diabe magdy, a hemog lobin A1c value betwe en 5.7% and 6.4% is consi stent with predi abete s and shoul d be confi rmed with a follo w-up test. For someo ne with known diabe magdy, a value <7% indic ates that their diabe magdy is well contr olled . A1c targe ts shoul d be indiv idual ized based on durat ion of diabe magdy, age, comor bid condi tions , and other consi derat ions. This assay resul t is consi stent with an incre ased risk of diabe magdy. Curre ntly, no conse nsus exist s regar mayito use of hemog lobin A1c for diagn osis of diabe magdy for child taras. Not Available [facility] [address], [address], 04/30/2024 06:12:26 05/12/19 25 05/12/2024 IRON, TIBC AND SILVIA TIN PANEL iron, total 77 mcg/d L 45-160 normal Not Available [facility] [address], [address], 05/12/2024 07:53:16 05/12/19 25 05/12/2024 IRON, TIBC AND SILVIA TIN PANEL iron binding capacity 331 mcg/d L_(ca lc) 250-45 0 normal Not Available [address], [address], 05/12/2024 07:53:16 05/12/19 25 05/12/2024 IRON, TIBC AND SILVIA TIN PANEL % saturation 23 %_(ca lc) 16-45 normal Not Available [address], [address], 05/12/2024 07:53:16 05/12/19 25 05/12/2024 IRON, TIBC AND SILVIA TIN PANEL ferritin 31 NG/mL 16-288 normal Not Available [address], [address], 05/12/2024 07:53:16 05/12/19 25 05/12/2024 FOLAT E, SERUM folate, serum 11.0 NG/mL normal Refer ence Range Low: <3.4 Borde rline : 3.4-5 .4 Nubia l: >5.4 Not Available [address], [address], 05/12/2024 07:53:18 05/12/19 25 05/12/2024 VITAM IN B12 vitamin B12 479 pg/mL 200-11 00 normal Not Available [address], [address], 05/12/2024 07:53:18 05/21/19 25 05/21/2024 CREAT ININE CLEAR ANCE W/O EGFR creatinine 1.48 mg/dL 0.60-1 .00 high Not Available [address], [address], 05/21/2024 02:04:51 05/21/19 25 05/21/2024 CREAT ININE CLEAR ANCE W/O EGFR creatinine, 24 hour urine 1.27 g/24_ h 0.50-2 .15 normal Not Available [address] [address] [place], [address], 05/21/2024 02:04:51 05/21/19 25 05/21/2024 CREAT ININE CLEAR ANCE W/O EGFR body surface area 2.30 Not Available [address] [address] [place], [address], 05/21/2024 02:04:51 05/21/19 25 05/21/2024 CREAT ININE CLEAR ANCE W/O EGFR creatinine clearance 45 mL/mi n 75-115 low Not Available [address] [place], [address], 05/21/2024 02:04:51 05/21/19 25 05/21/2024 CREAT ININE CLEAR ANCE W/O EGFR height feet 5 FT Not Available [address] [address] [place], [address], 05/21/2024 02:04:51 05/21/19 25 05/21/2024 CREAT ININE CLEAR ANCE W/O EGFR height inches 6 in Not Available [address], [address], 05/21/2024 02:04:51 05/21/19 25 05/21/2024 CREAT ININE CLEAR ANCE W/O EGFR weight pounds 278 Not Available [address] [place], [address], 05/21/2024 02:04:51 05/21/19 25 05/21/2024 PROTE IN, TOTAL , 24 HOUR URINE (W/O CREAT ININE ) protein, total, 24 HR ur 168 mg/24 _h <150 high URINE VOLUM E: 1400/ 24 Not Available [address] [address] [place], [address], 05/21/2024 02:04:52 10/29/12/30/2024 CBC/C OMPLE TE BLD COUNT W/DIF F white blood cells 5.8 x10'3 /uL 4.2-10 .8 Not Available [facility] (Lab) [address] [facility] [place], [address], 12/30/2024 15:04:43 12/31/1912/30/2024 CBC/C OMPLE TE BLD COUNT W/DIF F red blood cells 3.66 x10'6 /uL 4.10-5 .80 low Not Available [facility] (Lab) [address] [place], [address], 12/30/2024 15:04:43 12/31/1912/30/2024 CBC/C OMPLE TE BLD COUNT W/DIF F hemoglobin 11.3 g/dL 13.2-1 7.0 low Not Available [facility] (Lab) [address] [place], [address], 12/30/2024 15:04:43 12/31/1912/30/2024 CBC/C OMPLE TE BLD COUNT W/DIF F hematocrit 36.2 % 39.3-5 0.0 low Not Available [facility] (Lab) [address] [place], [address], 12/30/2024 15:04:43 12/31/1912/30/2024 CBC/C OMPLE TE BLD COUNT W/DIF F mean red cell volume 98.9 fL 80.0-9 7.0 high Not Available [facility] (Lab) [address] [place], [address], 12/30/2024 15:04:43 12/31/19 25 12/30/2024 CBC/C OMPLE TE BLD COUNT W/DIF F mean red cell hemoglobin 30.9 pg 27.0-3 3.0 Not Available [facility] (Lab) [address] [place], [address], 12/30/2024 15:04:43 12/31/1912/30/2024 CBC/C OMPLE TE BLD COUNT W/DIF F mean RBC HGB concentratio n 31.2 g/dL 31.0-3 6.0 Not Available [facility] (Lab) [address] [place], [address], 12/30/2024 15:04:43 12/31/1912/30/2024 CBC/C OMPLE TE BLD COUNT W/DIF F red cell distribution width 15.7 % 11.8-1 5.5 high Not Available [facility] (Lab) [address] [place], [address], 12/30/2024 15:04:43 12/31/1912/30/2024 CBC/C OMPLE TE BLD COUNT W/DIF F platelets 156 x10'3 /uL 150-40 0 Not Available [facility] (Lab) [address] [place], [address], 12/30/2024 15:04:43 12/31/1912/30/2024 CBC/C OMPLE TE BLD COUNT W/DIF F mean platelet volume 11.5 fL 9.0-12 .4 Not Available [facility] (Lab) [address] [place], [address], 12/30/2024 15:04:43 12/31/1912/30/2024 CBC/C OMPLE TE BLD COUNT W/DIF F neutrophils 72.4 % 39.0-7 2.0 high Not Available [facility] (Lab) [address] [place], [address], 12/30/2024 15:04:43 12/31/1912/30/2024 CBC/C OMPLE TE BLD COUNT W/DIF F lymphocytes 11.6 % 16.0-4 7.0 low Not Available [facility] (Lab) [address] [place], [address], 12/30/2024 15:04:43 12/31/1912/30/2024 CBC/C OMPLE TE BLD COUNT W/DIF F monocytes 9.9 % 5.0-12 .0 Not Available [facility] (Lab) [address] [place], [address], 12/30/2024 15:04:43 12/31/1912/30/2024 CBC/C OMPLE TE BLD COUNT W/DIF F eosinophils 4.1 % 1.0-7. 0 Not Available [facility] (Lab) [address] [place], [address], 12/30/2024 15:04:43 12/31/1912/30/2024 CBC/C OMPLE TE BLD COUNT W/DIF F basophils 1.5 % 0.0-2. 0 Not Available [facility] (Lab) [address] [place], [address], 12/30/2024 15:04:43 12/31/1912/30/2024 CBC/C OMPLE TE BLD COUNT W/DIF F immature granulocytes 0.5 % 0.00-0 .50 Not Available [facility] (Lab) [address] [place], [address], 12/30/2024 15:04:43 12/31/1912/30/2024 CBC/C OMPLE TE BLD COUNT W/DIF F neutrophils, absolute count 4.22 x10'3 /uL 1.5-8. 0 Not Available [facility] (Lab) [address] [place], [address], 12/30/2024 15:04:43 12/31/1912/30/2024 CBC/C OMPLE TE BLD COUNT W/DIF F lymphocytes, absolute count 0.68 x10'3 /uL 1.07-3 .43 low Not Available [facility] (Lab) [address] [place], [address], 12/30/2024 15:04:43 12/31/1912/30/2024 CBC/C OMPLE TE BLD COUNT W/DIF F monocytes, absolute count 0.58 x10'3 /uL 0.29-0 .99 Not Available [facility] (Lab) [address] [place], [address], 12/30/2024 15:04:43 12/31/1912/30/2024 CBC/C OMPLE TE BLD COUNT W/DIF F eosinophils, absolute count 0.24 x10'3 /uL 0.02-0 .53 Not Available [facility] (Lab) [address] [place], [address], 12/30/2024 15:04:43 12/31/1912/30/2024 CBC/C OMPLE TE BLD COUNT W/DIF F basophils, absolute count 0.09 x10'3 /uL 0.01-0 .08 high Not Available [facility] (Lab) [address] [place], [address], 12/30/2024 15:04:43 12/31/1912/30/2024 CBC/C OMPLE TE BLD COUNT W/DIF F immature granulocytes ,absolute 0.03 x10'3 /uL 0.00-0 .05 Not Available [facility] (Lab) [address] [place], [address], 12/30/2024 15:04:43 12/31/1912/30/2024 CBC/C OMPLE TE BLD COUNT W/DIF F nucleated red blood cells 0.0 % -0 Not Available [facility] (Lab) [address] [place], [address], 12/30/2024 15:04:43 12/31/19 25 12/30/2024 CBC/C OMPLE TE BLD COUNT W/DIF F NRBC# 0.00 x10'3 /uL Not Available [facility] (Lab) [address] [place], [address], 12/30/2024 15:04:43 12/31/19 25 12/30/2024 COMPR EHENS ALEJANDRA METAB OLIC PANEL sodium 141 mmol/ L 137-14 5 Not Available [facility] (Lab) [address] [place], [address], 12/30/2024 15:06:18 12/31/19 25 12/30/2024 COMPR EHENS ALEJANDRA METAB OLIC PANEL potassium 4.9 mmol/ L 3.5-5. 1 Not Available [facility] (Lab) [address] [place], [address], 12/30/2024 15:06:18 12/31/1912/30/2024 COMPR EHENS ALEJANDRA METAB OLIC PANEL chloride 109 mmol/ L 98-107 high Not Available [facility] (Lab) [address] [place], [address], 12/30/2024 15:06:18 12/31/19 25 12/30/2024 COMPR EHENS ALEJANDRA METAB OLIC PANEL carbon dioxide 24 mmol/ L 22-30 Not Available [facility] (Lab) [address] [place], [address], 12/30/2024 15:06:18 12/31/1912/30/2024 COMPR EHENS ALEJANDRA METAB OLIC PANEL anion gap 12.9 mmol/ L 14-22 low Not Available [facility] (Lab) [address] [place], [address], 12/30/2024 15:06:18 12/31/19 25 12/30/2024 COMPR EHENS ALEJANDRA METAB OLIC PANEL glucose 101 mg/dL 70-99 high Not Available [facility] (Lab) [address] [place], [address], 12/30/2024 15:06:18 12/31/19 25 12/30/2024 COMPR EHENS ALEJANDRA METAB OLIC PANEL BUN 40 mg/dL 8-19 high Not Available [facility] (Lab) [address] [place], [address], 12/30/2024 15:06:18 12/31/19 25 12/30/2024 COMPR EHENS ALEJANDRA METAB OLIC PANEL creatinine 1.35 mg/dL 0.66-1 .25 high Not Available [facility] (Lab) [address] [place], [address], 12/30/2024 15:06:18 12/31/19 25 12/30/2024 COMPR EHENS ALEJANDRA METAB OLIC PANEL GFR 38 Refer ence Range : [place] ge GFR Healt hy Adult : >60 mL/mi n/1.7 3 m2 Chron ic Kidne y Disea se: 15-60 mL/mi n/1.7 3 m2 Kidne y Failu re: <15/m L/min /1.73 m2 www.n iddk. nih.g ov The MDRD study equat ion has not been valid ated in child taras <18 years of age; pregn ant women ; the elder ly >85 years of age; or in some racia l or ethni c subgr oups, such as [facility] nics. Outsi de the valid ated christian eters , estim ated GFR is less accur ate, requi ring clini michelle judgm ent on a case- by-ca se basis . Clini michelle inter preta tion for other races and ages must be made by the clini you. The MDRD study equat ion has not been valid ated for the evalu ation of serum creat inine relat ed to nutri shauna l statu s or medic ation usage . For perso ns <18 years of age, a pedia tric GFR calcu lator is avail able on the [facility] websi te: [email or web address] :[email or web address] rg/pr ofess ional [email or web address] qi/gf r_cal culat or Not Available [facility] (Lab) [address] [place], [address], 12/30/2024 15:06:18 12/31/1912/30/2024 COMPR EHENS ALEJANDRA METAB OLIC PANEL alkaline phosphatase 109 U/L 38-126 Not Available [facility] (Lab) [address] [place], [address], 12/30/2024 15:06:18 12/31/1912/30/2024 COMPR EHENS ALEJANDRA METAB OLIC PANEL alanine aminotransfe rase 13 U/L 0-35 Not Available [facility] (Lab) [address] [place], [address], 12/30/2024 15:06:18 12/31/19 25 12/30/2024 COMPR EHENS ALEJANDRA METAB OLIC PANEL aspartate aminotransfe rase 21 U/L 15-37 Not Available [facility] (Lab) [address] [place], [address], 12/30/2024 15:06:18 12/31/1912/30/2024 COMPR EHENS ALEJANDRA METAB OLIC PANEL bilirubin, total 0.50 mg/dL 0.20-1 .30 Not Available [facility] (Lab) [address] [place], [address], 12/30/2024 15:06:18 12/31/1912/30/2024 COMPR EHENS ALEJANDRA METAB OLIC PANEL calcium 9.4 mg/dL 8.4-10 .2 Not Available [facility] (Lab) [address] [place], [address], 12/30/2024 15:06:18 12/31/1912/30/2024 COMPR EHENS ALEJANDRA METAB OLIC PANEL total protein 7.6 g/dL 6.3-8. 2 Not Available [facility] (Lab) [address] [place], [address], 12/30/2024 15:06:18 12/31/19 25 12/30/2024 COMPR EHENS ALEJANDRA METAB OLIC PANEL albumin 4.1 g/dL 3.0-4. 4 Not Available [facility] (Lab) [address] [place], [address], 12/30/2024 15:06:18 12/31/19 25 12/30/2024 COMPR EHENS ALEJANDRA METAB OLIC PANEL globulin 3.5 g/dL 2.6-4. 2 Not Available [facility] (Lab) [address] [place], [address], 12/30/2024 15:06:18 12/31/1912/30/2024 COMPR EHENS ALEJANDRA METAB OLIC PANEL A/G ratio 1.2 ratio 1.0-2. 0 Not Available [facility] (Lab) [address] [place], [address], 12/30/2024 15:06:18 12/31/19 25 12/30/2024 LIPID PANEL cholesterol 179 mg/dL 140-19 9 [facility] MARTA NSUS RECOM MENDA TION FOR TNOY STERO L: ADULT CHILD LOW RISK: <200 <170 BORDE RLINE : <200- 239 ----- HIGH RISK: >240 >200 Not Available [facility] (Lab) [address] [place], [address], 12/30/2024 15:06:20 12/31/1912/30/2024 LIPID PANEL triglyceride s 149 mg/dL 0-150 NIH MARTA NSUS REPOR T RECOM MENDA TION FOR TRIGL YCERI JAZ: ADULT CHILD LOW RISK: <150 ----- BODER LINE: 150-1 99 ----- HIGH RISK: >200 ----- Not Available [facility] (Lab) [address] [place], [address], 12/30/2024 15:06:20 12/31/1912/30/2024 LIPID PANEL HDL cholesterol 49 mg/dL 40- Not Available [facility] (Lab) [address] [place], [address], 12/30/2024 15:06:20 12/31/1912/30/2024 LIPID PANEL LDL cholesterol, calculated 100 mg/dL 0-130 NIH MARTA NSUS REPOR T RECOM MENDA TIONS FOR LDL: ADULT CHILD LOW RISK <130 <110 (OPTI MAL LDL) <100 ----- BORDE RLINE : 130-1 59 ----- HIGH RISK: >160 >130 A TRIGL YCERI DE RESUL T >400 INVAL IDATE S THE CALCU LATIO N FOR LDL FRACT IONAT ION - THE LDL RESUL T WILL NOT BE REPOR PERLITA. Not Available [facility] (Lab) [address] [place], [address], 12/30/2024 15:06:20 12/31/1912/30/2024 VITAM IN D 25-HY DROXY [id number] 22.5 NG/mL 30-100 low Vitam in D Statu s: Defic ient: <20 ng/mL Insuf ficie nt: 20-29 ng/mL Suffi cient : 30-10 0 ng/mL Not Available [facility] (Lab) [address] [place], [address], 12/30/2024 16:21:28 12/31/1912/30/2024 T4 FREE free T4 1.24 NG/dL 0.78-2 .19 Not Available [facility] (Lab) [address] [place], [address], 12/30/2024 16:42:11 12/31/1912/30/2024 TSH thyroid-stim ulating hormone 2.340 uIU/m L 0.465- 4.680 Not Available [facility] (Lab) [address] [place], [address], 12/30/2024 16:42:21 Result Notes None recorded. Problems Name Problem SNOMED Code Status Onset Date Resolution Date Notes Provider Name and Address Organization Details Recorded Time Tobacco user 640677891 Active Not Available [facility] 3 15:35:31 Diverticul itis of colon 513080775 Active Not Available [facility] 3 15:35:31 Serum creatinine outside reference range 976122483 Active Not Available [facility] 3 15:35:31 Lumbar sprain 276527652 Active Not Available [facility] 3 15:35:31 Gastroesop hageal reflux disease 140763914 Active Not Available [facility] 3 15:35:31 Pain of joint of ankle and/or foot 790362003 Active Not Available [facility] 3 15:35:31 Restless legs syndrome 55672307 Active Not Available [facility] 3 15:35:31 Osteoarthr itis 955674886 Active Not Available [facility] 3 15:35:32 Diverticul ar disease of colon 466261978 Active Not Available [facility] 3 15:35:32 Obesity 620941611 Active Not Available [facility] 3 15:35:32 Atrial fibrillati on 13185772 Active Not Available [facility] 3 15:35:32 Essential hypertensi on 27075592 Active Not Available [facility] 3 15:35:32 Hidradenit is 51748170 Active Not Available [facility] 3 15:35:32 Sleep apnea 82598542 Active Not Available [facility] 3 15:35:32 Primary cardiomyop athy 73823993 Active Not Available [facility] 3 15:35:32 Osteoarthr itis of knee 082665856 Active 2017 Not Available [facility] 3 15:35:31 Excess skin of eyelid 336578175 Active 2017 Not Available [facility] 3 15:35:31 Depressive disorder 00916695 Active 2018 Not Available [facility] 3 15:35:31 Congestive heart failure 39896580 Active 2020 Not Available [facility] 3 15:35:32 Senile osteoporos is 69792468 Active 2021 Not Available [facility] 3 15:35:31 Screening mammograph y Active 2021 Not Available [facility] 3 15:35:31 Adult health examinatio n Active 2021 Not Available [facility] 3 15:35:31 Screening for disorder Active 2021 Not Available [facility] 3 15:35:31 COVID-19 503949829 Active 2021 Not Available [facility] 3 15:35:32 Wheezing 44590454 Active 2021 Not Available [facility] 3 15:35:32 Iron deficiency anemia 67915223 Active 2021 Not Available [facility] 3 15:35:32 Influenza 1847536 Active 2021 Not Available [facility] 3 15:35:32 Chronic kidney disease stage 3B 850358998 Active 2022 Not Available [facility] 3 15:35:32 Essential tremor 648366665 Active 2022 Not Available [facility] 3 15:35:32 Vitamin D deficiency 99325325 Active 2022 Haim Dee MD [address], [place], [address] , [employer] [facility] 5 12:47:42 Pain of left ankle joint 3024149475792 9103 Active 2022 Not Available [facility] 3 15:35:31 Cellulitis of lower limb 506226683 Active 2022 Not Available [facility] 3 15:35:32 Acute sinusitis 36426243 Active 2022 Haim Dee MD [address], [place], [address] , [employer] [facility] 3 12:27:13 Upper respirator y infection 40100123 Active 2022 Haim Dee MD [address], [place], [address] , [place] [facility] [place] [facility] 3 15:35:24 Acute bronchitis 59075591 Active 2022 Haim Dee MD [address], [place], [address] , [place] [facility] [place] [facility] 3 12:32:41 Cough 06571488 Active 2022 Sabi Beltran null, [place] [facility] 3 12:36:52 Osteoporos is 58138225 Active 2022 Deed Verduzco CMA null, [place] [facility] 3 14:44:31 Candidiasi s of vagina 70479082 Active 2022 Haim Dee MD [address], [place], [address] , [place] [facility] 3 16:43:56 Obese class III 464952888 Active 2023 Haim Dee MD [address], [place], [address] , [place] [facility] 4 15:00:22 Thyroid function tests abnormal 417056212 Active 2023 KEZIA Rowland, [place] [facility] 4 12:34:34 Nausea and vomiting 05165226 Active 2024 Haim Dee MD [address], [place], [address] , [place] [facility] [place] [facility] 5 10:22:45 Chronic renal failure 56934043 Active 2024 KEZIA Row[place], [place] [facility] 5 14:27:54 Anemia 208869999 Active 2024 Dede Verduzco CMA null, [place] [facility] 5 14:28:00 Dental abscess 174863258 Active 2024 Haim Dee MD [address], [place], [address] , [facility] [employer] [facility] 5 17:33:24 Anxiety 71647546 Active 2024 Haim Dee MD [address], [place], [address] , [facility] [employer] [facility] 5 12:47:58 Gastroesop hageal reflux disease without esophagiti s 856053092 Active 2024 Sabi Beltran tabitha, [facility] [employer] [facility] 5 14:01:37 Pharyngiti s 561056262 Active 2024 Haim Dee MD [address], [place], [address] , [facility] [employer] [facility] 5 16:22:05 Bilateral acute conjunctiv itis Active 2024 Haim Dee MD [address], [place], [address] , [facility] [employer] [facility] 5 14:59:54 Problem Notes None recorded. Procedures Surgical History Date Name Laterality Status Provider Name and Address Organization Details Recorded Time 12/10/19 Medicare Wellness CPT Code, subsequent completed Demetria Mosley RN [facility] [employer] [facility] 12/10/2023 15:34:23 12/05/19 Medicare Wellness CPT Code, subsequent completed Noelle Lees [facility] 12/04/2022 14:46:10 Eye completed Not Available [facility] 05/02/2022 06:42:10 cholelithotomy completed Not Available [facility] 05/02/2022 06:42:10 Defibrillator completed Not Available [facility] 05/02/2022 06:42:10 Imaging Results None recorded. Procedure Notes None recorded. Medical Equipment None Reported. Allergies Allergen ID Allergen Name Allergen Category Reaction Reaction Severity Criticality Documentation Date Start Date Code Code System Note Provider Name and Address Organization Details Recorded Time 63231 latex environme nt,medica tion Not available Not available Not available 05/02/2022 52473 91 RxNorm blist er Not Available [facility] 03/01/202 3 06:49:33 Medications Name Sig Start Date Stop Date Status Note LastModified by Organization Details LastModified Time amoxicillin 500 mg capsule Take 1 capsule 3 times a day by oral route for 10 days. 2024 active Not Available Not Available Not Avai lable furosemide 40 mg tablet TK 1 AND 1/2 TS PO D active Not Available Not Available No t Available metolazone 2.5 mg tablet TAKE 1 TABLET BY MOUTH EVERY DAY 05/08 completed Not Available Not Available Not Available carvedilol 25 mg tablet TAKE 1 AND 1/2 TABLETS BY MOUTH TWICE DAILY WITH MEALS active Not Available Not Available No t Available carvedilol 6.25 mg tablet active Not Available Not Available Not Available venlafaxine ER 75 mg capsule,ext ended release 24 hr TAKE 1 CAPSULE BY MOUTH EVERY DAY 2024 active Not Available Not Available Not Avai lable amiloride 5 mg-hydrochl orothiazide 50 mg tablet active Not Available Not Available Not Available bumetanide 2 mg tablet Take 1 tablet every day by oral route. 04/09 completed Not Available Not Available Not Available Zestoretic 20 mg-25 mg tablet Take 1 tablet every day by oral route. 2012 active Not Available Not Available Not Avai lable azithromyci n 250 mg tablet TAKE 2 TABLETS (500 MG) BY ORAL ROUTE ONCE DAILY FOR 1 DAY THEN 1 TABLET (250 MG) BY ORAL ROUTE ONCE DAILY FOR 4 DAYS 12/04 completed Not Available Not Available Not Available aspirin 325 mg tablet Take 1 tablet every day by oral route. 04/27 completed Not Available Not Available Not Available ofloxacin 0.3 % eye drops INSTILL 1 DROP INTO AFFECTED EYE(S) BY OPHTHALMI C ROUTE 4 TIMES PER DAY 2024 active Not Available Not Available Not Avai lable fluconazole 150 mg tablet TAKE 1 TABLET BY MOUTH EVERY DAY 08/12 completed Not Available Not Available Not Available amiodarone 200 mg tablet TAKE 1 TABLET BY MOUTH DAILY active Not Available Not Available No t Available benzonatate 200 mg capsule TAKE 1 CAPSULE BY MOUTH THREE TIMES DAILY 12/04 completed Not Available Not Available Not Available ampicillin 500 mg capsule TAKE ONE CAPSULE BY MOUTH FOUR TIMES DAILY UNTIL ALL TAKEN 05/03 completed Not Available Not Available Not Available hydrocodone 5 mg-acetamin ophen 325 mg tablet TAKE 1 TABLET BY MOUTH EVERY 8 HOURS NEEDED 12/30 completed Not Available Not Available Not Available minocycline 100 mg capsule active Not Available Not Available Not Available spironolact one 25 mg-hydrochl orothiazide 25 mg tablet Take 1 tablet every day by oral route. 2012 active Not Available Not Available Not Avai lable lisinopril 20 mg tablet Take 1 tablet every day by oral route. 2013 active Not Available Not Available Not Avai lable ondansetron HCl 4 mg tablet TAKE 2 TABLETS BY MOUTH TWICE DAILY active Not Available Not Available No t Available alendronate 70 mg tablet TAKE 1 TABLET BY MOUTH EVERY WEEK active Not Available Not Available No t Available metolazone 5 mg tablet Take 1 tablet every day by oral route. 05/06 completed Not Available Not Available Not Available Nexium 40 mg capsule,del ayed release TAKE 1 CAPSULE DAILY FOR REFLUX 04/27 completed Not Available Not Available Not Available hydralazine 25 mg tablet Take 1 tablet 3 times a day by oral route. 08/11 completed Not Available Not Available Not Available potassium chloride ER 10 mEq tablet,exte nded release Take 1 tablet every day by oral route. 05/08 completed Not Available Not Available Not Available metronidazo le 500 mg tablet TAKE 1 TABLET BY MOUTH EVERY 8 HOURS active Not Available Not Available No t Available ciprofloxac in 500 mg tablet TAKE 1 TABLET BY MOUTH TWICE DAILY FOR 10 DAYS 08/12 completed Not Available Not Available Not Available triamcinolo ne acetonide 0.1 % topical cream APPLY THIN LAYER TOPICALLY TO THE AFFECTED AREA TWICE DAILY 08/11 completed Not Available Not Available Not Available spironolact one 25 mg tablet Take 1 tablet every day by oral route. active Not Available Not Available No t Available amoxicillin 500 mg tablet TAKE 1 TABLET BY MOUTH THREE TIMES DAILY 08/12 completed Not Available Not Available Not Available Celebrex 200 mg capsule once daily 09/06 completed Not Available Not Available Not Available erythromyci n 250 mg tablet TAKE 1 TABLET BY MOUTH TWICE DAILY FOR 14 DAYS 01/10 completed Not Available Not Available Not Available potassium chloride ER 20 mEq tablet,exte nded release(par t/cryst) 01/02 completed Not Available Not Available Not Available lorazepam 0.5 mg tablet Take 1 tablet 3 times a day by oral route as needed, for Anxiety. 2024 active Not Available Not Available Not Avai lable temazepam 15 mg capsule TAKE 1 CAPSULE BY MOUTH EVERY DAY AT BEDTIME 09/05 completed Not Available Not Available Not Available temazepam 30 mg capsule Take by oral route for 30 days. active Not Available Not Available No t Available baclofen 10 mg tablet Take 1 tablet 4 times a day by oral route. 08/11 completed Not Available Not Available Not Available cephalexin 500 mg capsule TAKE 1 CAPSULE BY MOUTH EVERY 6 HOURS 12/04 completed Not Available Not Available Not Available pantoprazol e 40 mg tablet,racquel yed release TAKE 1 TABLET BY MOUTH EVERY DAY 12/30 completed Not Available Not Available Not Available oseltamivir 75 mg capsule TAKE 1 CAPSULE BY MOUTH TWICE DAILY FOR 5 DAYS 05/08 completed Not Available Not Available Not Available lisinopril 10 mg tablet active Not Available Not Available Not Available bumetanide 1 mg tablet TAKE 1 TABLET BY MOUTH EVERY MORNING active Not Available Not Available No t Available amoxicillin 250 mg capsule TAKE 1 CAPSULE BY MOUTH EVERY 8 HOURS UNTIL GONE 04/14 completed Not Available Not Available Not Available hydralazine 50 mg tablet Take 1 tablet twice a day by oral route. 12/30 completed Not Available Not Available Not Available furosemide 20 mg tablet TAKE 1 TABLET BY MOUTH TWICE DAILY active Not Available Not Available No t Available Levaquin 500 mg tablet Take 1 tablet every 24 hours by oral route. 09/06 completed Not Available Not Available Not Available ergocalcife rol (vitamin D2) 1,250 mcg (50,000 unit) capsule Take 1 capsule every week by oral route. 2024 active Not Available Not Available Not Avai lable azelastine 137 mcg (0.1 %) nasal spray SPRAY 1 SPRAY IN EACH NOSTRIL Q 12 HOURS PRF CONGESTIO N 05/31 completed Not Available Not Available Not Available methylpredn isolone 4 mg tablets in a dose pack FOLLOW PACKAGE DIRECTION S 08/12 completed Not Available Not Available Not Available albuterol sulfate HFA 90 mcg/actuati on aerosol inhaler INHALE 2 PUFFS BY MOUTH EVERY 6 HOURS active Not Available Not Available No t Available carbidopa 25 mg-levodopa 100 mg tablet TAKE 1 TABLET BY MOUTH TWICE DAILY 04/27 completed Not Available Not Available Not Available clobetasol 0.05 % scalp solution APPLY TO THE AFFECTED AREA DAILY NEEDED 08/11 completed Not Available Not Available Not Available cefdinir 300 mg capsule TAKE 1 CAPSULE BY MOUTH EVERY 12 HOURS 12/04 completed Not Available Not Available Not Available clotrimazol e 1 % topical cream APPLY TO THE AFFECTED AREA TWICE DAILY UNTIL DIRECTED TO STOP 08/11 completed Not Available Not Available Not Available betamethaso ne dipropionat e 0.05 % lotion APPLY TO THE SCALP EVERY NIGHT AT BEDTIME NEEDED FOR RASH 08/11 completed Not Available Not Available Not Available doxycycline hyclate 100 mg tablet TAKE 1 TABLET BY MOUTH EVERY DAY 04/09 completed Not Available Not Available Not Available calcitriol 0.25 mcg capsule TAKE 1 CAPSULE BY MOUTH EVERY MORNING 12/30 completed Not Available Not Available Not Available metoclopram janet 10 mg tablet TAKE 1 TABLET BY MOUTH THREE TIMES DAILY BEFORE MEALS active Not Available Not Available No t Available Tylenol Extra Strength 500 mg tablet Take 2 tablets every 4 hours by oral route. 2017 active Not Available Not Available Not Avai lable Coreg 12.5 mg tablet Take 1 tablet twice a day by oral route. 2012 active Not Available Not Available Not Avai lable olmesartan 5 mg tablet TAKE 2 TABLETS BY MOUTH EVERY NIGHT AT BEDTIME active Not Available Not Available No t Available escitalopra m 10 mg tablet TAKE 1 AND 1/2 TABLETS BY MOUTH DAILY 01/10 completed Not Available Not Available Not Available escitalopra m 20 mg tablet Take 1 tablet every day by oral route. 2020 active Not Available Not Available Not Avai lable Bren-D 24 Hour 180 mg-240 mg tablet,exte nded release Take 1 tablet every day by oral route. active Not Available Not Available No t Available Boostrix Tdap 2.5 Lf unit-8 mcg-5 Lf/0.5 mL intramuscul ar syringe ADM 0.5ML IM UTD 05/14 completed Not Available Not Available Not Available potassium acetate 01/10 completed Not Available Not Available Not Available peg 3350-electr olytes 236 gram-22.74 gram-6.74 gram-5.86 gram solution TAKE 240 ML BY MOUTH EVERY 10 MINUTES DIRECTED 01/02 completed Not Available Not Available Not Available FeroSul 325 mg (65 mg iron) tablet TAKE 1 TABLET BY MOUTH EVERY DAY active Not Available Not Available No t Available Xarelto 20 mg tablet Take 1 tablet every day by oral route. 2012 active Not Available Not Available Not Avai lable Eliquis 5 mg tablet 1 tab twice daily active Not Available Not Available No t Available Eliquis 2.5 mg tablet Take 1 tablet twice a day by oral route. 05/14 completed Not Available Not Available Not Available Fluad 2018- 65yr up(PF)45 mcg(15 mcgx3)/0.5 mL intramuscul ar syringe ADM 0.5ML IM UTD 05/14 completed Not Available Not Available Not Available Wegovy 0.25 mg/0.5 mL subcutaneou s pen injector INJECT 0.25 MG BY SUBCUTANE OUS ROUTE ONCE WEEKLY ON THE SAME DAY OF EACH WEEK 08/11 completed Not Available Not Available Not Available Paxlovid 150 mg-100 mg tablets in a dose pack (Moderate Renal Dose) Take by oral route. Take one 150 mg and one 100 mg tablet twice daily for five days active Not Available Not Available No t Available Vitals Date Recorded Body height Body mass index (BMI) Body weight Heart rate Body temperature Oxygen saturation Systolic And Diastolic Provider Name and Address Organization Details Last Updated DateTime 5 163.83 cm 45.4 kg/m2 982872. 55 g 70 /min 97 [degF] 97 % 134/74 mm[Hg] [employer] 5 15:16:06 Date Recorded Body height Body mass index (BMI) Body weight Heart rate Body temperature Oxygen saturation Systolic And Diastolic Provider Name and Address Organization Details Last Updated DateTime 5 163.83 cm 46.1 kg/m2 392439. 92 g 70 /min 97 [degF] 95 % 124/80 mm[Hg] [employer] 5 14:56:30 Date Recorded Body height Body mass index (BMI) Body weight Heart rate Body temperature Oxygen saturation Systolic And Diastolic Provider Name and Address Organization Details Last Updated DateTime 4 163.83 cm 46.5 kg/m2 309807. 9 g 70 /min 97 [degF] 97 % 138/68 mm[Hg] [facility] 4 15:01:01 Date Recorded Body height Body mass index (BMI) Body weight Heart rate Body temperature Oxygen saturation Systolic And Diastolic Provider Name and Address Organization Details Last Updated DateTime 4 163.83 cm 46.6 kg/m2 876342. 49 g 64 /min 97 [degF] 94 % 138/74 mm[Hg] [facility] 4 15:28:48 Date Recorded Pain severity - 0-10 verbal numeric rating [Score] - Reported Provider Name and Address Organization Details Last Updated DateTime 12/10/2023 4 Demetria Mosley RN [facility] 12/10/2023 15:35:23 Date Recorded Body height Body mass index (BMI) Body weight Heart rate Body temperature Oxygen saturation Systolic And Diastolic Provider Name and Address Organization Details Last Updated DateTime 5 163.83 cm 45 kg/m2 089250. 57 g 70 /min 97.2 [degF] 95 % 128/64 mm[Hg] [facility] 5 12:29:38 Social History Question Answer Notes LastModified by Organizat ion Details LastModified Time Tobacco Smoking Status Never Smoker Not Available [facility] 05/02/2022 06:41:50 Do You Have An Advance Directive? Yes [id number] Information not available 05/02/2022 Are You Blind Or Do You Have Difficulty Seeing? No [id number] Information not available 05/02/2022 Are You Deaf Or Do You Have Serious Difficulty Hearing? No [id number] Information not available 05/02/2022 What Type Of Diet Are You Following? REGULAR [email or web address] Information not available 12/10/2023 Have There Been Any Changes To Your Family Or Social Situation? No [id number] Information not available 05/02/2022 What Is The Fluoride Status Of Your Home? Unknown [id number] Information not available 05/02/2022 Are There Any Guns Present In Your Home? No [id number] Information not available 05/02/2022 Do You Use Insect Repellent Routinely? No [id number] Information not available 05/02/2022 Where Do You Live? [facility] [id number] Information not available 05/02/2022 Guns Present In The Home? No [email or web address] Information not available 12/10/2023 Are You Able To Care For Yourself? Yes [email or web address] Information not available 12/10/2023 Are You Blind Or Do Yo Have Difficulty Seeing? No [email or web address] Information not available 12/10/2023 Are You Deaf Or Do You Have Serious Difficulty Hearing? No [email or web address] Information not available 12/10/2023 Live Alone Of With Others? With Others [email or web address] Information not available 12/10/2023 What Was The Date Of Your Most Recent Tobacco Screening? 12/10/2023 [email or web address] Information not available 12/10/2023 Do You Have Any Pets? Yes [email or web address] Information not available 12/10/2023 What Is Your Relationship Status? [id number] Information not available 05/02/2022 Do You Use Your Seat Belt Or Car Seat Routinely? Yes [id number] Information not available 05/02/2022 Do You Have Smoke And Carbon Monoxide Detectors In Your Home? Yes [id number] Information not available 05/02/2022 Are You Passively Exposed To Smoke? No [id number] Information not available 05/02/2022 Are There Any Smokers In Your House? No [email or web address] Information not available 12/10/2023 Do You Use Sunscreen Routinely? No [id number] Information not available 05/02/2022 Have You Recently Traveled Abroad? No MIGRATION.[id number] Information not available 05/02/2022 Do You Have Difficulty Walking Or Climbing Stairs? Yes Uses Walker Information not available 12/10/2023 Sex: Unknown Functional Status Question Answer Note LastModified by Organizat ion Details LastModified Time What is your level of alcohol consumption? None [email or web address] Information not available 12/10/2023 Are you able to walk independently without assistance or assistive devices? YESASSIST uses a walker sometimes [id number].[id number] Information not available 05/02/2022 Do you have difficulty doing errands alone? Yes [id number] Information not available 05/02/2022 Are you able to care for yourself independently? Yes MIGRATION.08726 [id number] Information not available 05/02/2022 Do you have difficulty dressing, bathing, grooming, or toileting? No MIGRATION.84057 [id number] Information not available 05/02/2022 Do you or have you ever used e-cigarettes or vape? Current user of electronic cigarettes [id number].[id number] Information not available 05/02/2022 What is your exercise level? None [id number].01888 [id number] Information not available 05/02/2022 Mental Status Question Answer Note LastModified by [employer] Details LastModified Time Do you have difficulty concentrating, remembering or making decisions? No [id number] Information not available 05/02/2022 Family History Relationship Description Onset Age of this Age Resolved Age Notes LastModified by Organization Details LastModified Time Father Heart disease [id number] Not available 05/02/2022 06:42:11 Father Hypertensive disorder [id number] Not available 05/02/2022 06:42:11 Notes:Mother 82 yea rs of age has hx of cardiomegaly,tremor and glaucoma. CRF Father 80 y/o hx of HTN and COPD. Hx AAA No brothers or sisters. Medical History Condition Response NERVE DISEASE N BLINDNESS N RHEUMATIC FEVER N KIDNEY STONES N BLADDER PROBLEMS N OTHER # 1 N POLIO N LUNG DISEASE/DISORDER N RADIATION / CHEMOTHERAPY N COPD N Other # 2 N BLOOD DISEASES N SURGERY N EAR OR HEARING PROBLEMS N MUMPS N BOWEL PROBLEMS N DEPRESSION (INCLUDING POST ) Y STROKE/TIA N ULCERS N BENIGN PROSTATIC HYPERPLASIA N MEASLES N MYOCARDIAL INFARCTION N OBESITY N GERD/NAUSEA Y ANEURYSM N URINARY/BLADDER/KIDNEY PROBLEMS N INPATIENT PSYCH CARE N CORONARY ARTERY DISEASE (CAD) N ADDICTION CONCERNS N Impotence N ENDOMETRIOSIS N USE OF BLOOD THINNERS Y SKIN PROBLEMS N GASTROINTESTINAL DISORDER N PERIPHERAL VASCULAR DISEASE N MUSCLE,JOINT OR BONE PROBLEMS N GASTROINTESTINAL BLEEDING N BLOOD CLOTS N ASTHMA N CATARACTS N USE OF NSAIDS Y ERECTILE DYSFUNCTION N VARICOSITIES N GI PROBLEMS N Low Testosterone N INFERTILITY N AIDS/HIV N LIVER DISEASE N MALE HYPOGONADISM N HYPERTENSION Y Deficiency N ANXIETY DISORDER N BLOOD TRANSFUSION N ANEMIA/BLOOD DISORDER N CHRONIC EAR INFECTIONS N BRONCHITIS N TUBERCULOSIS N GLAUCOMA N DIVERTICULITIS Y SLEEP APNEA Y CHICKENPOX N INFECTIOUS DISEASE N PROSTATE N HEART ARRHYTHMIA N INSOMNIA N HIGH CHOLESTEROL / HYPERLIPIDEMIA N EYE PROBLEMS N HYPERTHYROIDISM N NEUROLOGICAL PROBLEMS N EDEMA N CHRONIC PAIN SYNDROME N HYPOTHYROIDISM N CONSTIPATION N CAROTID BLOCKAGE N BACK / NECK PROBLEMS N HAVE YOU BEEN HOSPITALIZED OR SEEN IN [facility] ER IN THE PAST YEAR ? N ATHEROSCLEROSIS N BREAST PROBLEMS N DIALYSIS N ECZEMA N OSTEOPOROSIS N ARTHRITIS Y NO SIGNIFICANT PAST MEDICAL HISTORY N APPENDICITIS N DIABETES, TYPE N BAD TEETH N ENT N HEARTBURN / REFLUX Y AUTISM SPECTRUM DISORDER (ASD) N HEPATITIS / LIVER DISEASE N PULMONARY DISEASE N GOUT N SLEEP DISORDER N ALZHEIMER'S DISEASE N Brain Problems N DEMENTIA N HERPES N SEIZURES/EPILEPSY N HEADACHES/MIGRAINES N VASCULAR DISEASE N PACEMAKER N Blood Disorder N DIZZINESS N HEART DISEASE/HEART PROBLEMS Y KIDNEY DISEASE N MULTIPLE SCLEROSIS N CANCER: SPECIFY N CARDIAC ARRHYTHMIA Y ANESTHESIA COMPLICATIONS N ATRIAL FIBRILLATION Y Gall Stones N PULMONARY EMBOLISM N AUTOIMMUNE DISEASE N Gynecological History Statement/Question Response Date of Last Mammogram 03/26/2017 Date of Last Colonoscopy Most Recent Bone Density Obstetrics History GPAL:G 0 P 0 0 0 0 Immunizations Vaccine Type Date Status Note Provider Nam e and Address Organization Details Recorded Time zoster live 5 completed Not Available [facility] 12/30/2024 12:22:33 Influenza, high-dose, trivalent, PF 5 completed Not Available [facility] 12/30/2024 12:22:33 Influenza, high-dose, trivalent, PF 8 completed Not Available [facility] 12/30/2024 12:22:33 Influenza, adjuvanted, trivalent, PF 9 completed Not Available [facility] 12/30/2024 12:22:33 Tdap 9 completed Not Available [facility] 12/30/2024 12:22:33 influenza, unspecified formulation 0 completed Not Available [facility] 12/30/2024 12:22:33 COVID-19, mRNA, LNP-S, PF, 30 mcg/0.3 mL dose 2 completed Not Available [facility] 12/30/2024 12:22:33 COVID-19, mRNA, LNP-S, PF, 50 mcg/0.5 mL 3 completed Not Available [facility] 12/30/2024 12:22:33 Influenza, high-dose, quadrivalent, PF 3 completed Haim Dee MD [address] [place] [address], [place] [address], [place], [address], [facility] [employer] 12/04/2022 14:57:13 Influenza, high-dose, trivalent, PF 6 completed Not Available [facility] 10/23/2022 15:35:32 Pneumococcal conjugate PCV 13 4 completed Not Available [facility] 10/23/2022 15:35:32 SARS-COV-2 (COVID-19) vaccine, UNSPECIFIED 2 completed Not Available [facility] 10/23/2022 15:35:32 SARS-COV-2 (COVID-19) vaccine, UNSPECIFIED 1 completed Not Available [facility] 10/23/2022 15:35:32 Influenza, split virus, trivalent, preservative 3 completed Not Available [facility] 10/23/2022 15:35:32 Influenza, high-dose, trivalent, PF 2 completed Not Available [facility] 10/23/2022 15:35:32 SARS-COV-2 (COVID-19) vaccine, UNSPECIFIED 1 completed Not Available [facility] 10/23/2022 15:35:32 SARS-COV-2 (COVID-19) vaccine, UNSPECIFIED 1 completed Not Available [facility] 10/23/2022 15:35:32 Influenza, high-dose, quadrivalent, PF 1 completed Not Available [facility] 10/23/2022 15:35:32 Influenza, high-dose, trivalent, PF 4 completed Not Available [facility] 10/23/2022 15:35:32 Influenza, high-dose, trivalent, PF 4 completed Haim Dee MD [address] [facility] [address] [address], [place], [address], [facility] [employer] 12/10/2023 16:02:31 Pneumococcal conjugate PCV20, polysaccharide [id number] conjugate, adjuvant, PF 4 completed Noelle lu, Sudiksha 12/20/2023 14:15:02 Past Encounters Encounter ID Performer Location Encounter Start Date Encounter Closed Date Diagnosis/Indication Diagnosis SNOMED-CT Code Diagnosis ICD10 Code Diagnosis IMO Codes Diagnosis Note [id number] Haim Dee MD [facility] Internal [facility] [place] [address] [place] [address] y , [place] [address] 05/03/2020 00:00:00 05/03/2020 17:25:46 [id number] Darinel Mccarty MD [facility] [place] [address] [facility] [address] [place] [address] 05/31/2020 00:00:00 05/31/2020 16:14:43 [id number] Haim Dee MD [facility] Internal [place] [address] [place] [address] y , [place] [address] 07/12/2020 00:00:00 07/12/2020 15:30:23 [id number] Darinel Mccarty MD [facility] [place] [address] [facility] [address] [place] [address] 08/02/2020 00:00:00 08/02/2020 15:29:46 [id number] Haim Dee MD [facility] Internal [place] [address] [place] [address] [place] [address] 01/10/2021 00:00:00 01/10/2021 15:46:20 [id number] Haim Dee MD [facility] Internal [place] [address] [place] [address] y , [place] [address] 05/09/2021 00:00:00 05/09/2021 15:37:00 [id number] Haim Dee MD [facility] Internal [place] [address] [place] [address] y , [place] [address] 09/05/2021 00:00:00 09/05/2021 16:07:10 [id number] Haim Dee MD [facility] Internal Med [address] [place] [address] 10/23/2021 00:00:00 10/23/2021 14:36:33 [id number] Haim Dee MD [facility] Internal Med [place] [address] [place] [address] y , [place] [address] 01/02/2022 00:00:00 01/02/2022 16:14:20 [id number] Haim Dee MD [facility] Internal Med [place] [address] [place] [address] y , [place] [address] 05/08/2022 15:00:36 05/08/2022 15:54:03 Atrial fibrillation 89102665 I48.91 Essential hypertension 25302075 I10 Primary cardiomyopathy 57347745 I42.9 Chronic ki dney disease stage 3B 636677837 N18.32 [id number] Haim Dee MD [facility] Internal Med [place] [address] [place] [address] y , [place] [address] 08/07/2022 14:55:51 08/07/2022 15:43:38 Atrial fibrillation 08173536 I48.91 Essential hypertension 61416660 I10 Primary cardiomyopathy 15477032 I42.9 Essential tremor 1875548 09 G25.0 Vitamin D deficiency 347 82970 E55.9 [id number] Haim Dee MD [facility] Internal Med [place] [address] [place] [address] [place] [address] 11/16/2022 12:03:39 11/16/2022 12:40:31 Acute bronchitis 87739280 J20.9 [id number] Haim Dee MD [facility] Internal Med [place] [address] [place] [address] [place] [address] 12/04/2022 14:30:24 12/04/2022 15:12:46 Administration of influenza vaccine 14882540 Z23 Atrial fibrillation 4943 6004 I48.91 Essential hypertension 81297790 I10 Primary cardiomyopathy 97694003 I42.9 [id number] Haim Dee MD [facility] Internal Med [address] [place] [address] 04/09/2023 14:34:07 04/09/2023 15:09:50 Chronic kidney disease stage 3B 199193794 N18.32 Atrial fibrillation 4943 6004 I48.91 Depressive disorder 3548 9007 F32.A Obese class III 01284056 5 E66.01 Essential hypertension 89829429 I10 hypertensi on -paroxysma l atrial fibrillati on -chronic kidney disease-de pression -obesity. All clinically stable. Apparently had some slight thyroid abnormalit ies the TSH was low at 0.9. Will continue with current Rx. Will check a free T4, free T3 and TSH level. Continue on current Rx at this alesia [id number] Haim Dee MD [facility] Internal Med [facility] [address] [place] [address] [place] [address] 08/13/2023 14:48:21 08/13/2023 15:36:06 Atrial fibrillation 02250933 I48.91 Chronic ki dney disease stage 3B 939032904 N18.32 Essential hypertension 48400091 I10 Primary cardiomyopathy 53188013 I42.9 Obese class III 93012641 5 E66.01 [id number] Haim Dee MD [facility] Internal Med [address] [place] [address] 12/10/2023 15:03:51 12/10/2023 16:15:03 Administration of influenza vaccine 72076203 Z23 Adult heal th examination 587444562 Z00.00 Screening for disorder 485333117 Z13.9 Chronic ki dney disease stage 3B 752351862 N18.32 Essential hypertension 10797885 I10 Atrial fibrillation 4943 6004 I48.91 Osteoporosis 35993840 M8 1.0 Obese class III 93061731 5 E66.01 [id number] Haim Dee MD [facility] Primary Care [facility] [address] [facility] [address] [place] [address] 04/14/2024 14:55:49 04/14/2024 15:46:23 Essential hypertension 89703040 I10 Chronic ki dney disease stage 3B 882942812 N18.32 Atrial fibrillation 4943 6004 I48.91 Primary cardiomyopathy 59835380 I42.9 Obese class III 59315420 5 E66.01 [id number] Haim Dee MD [facility] Internal Med [place] [address] [address] 08/11/2024 14:44:36 08/11/2024 15:15:01 Essential hypertension 13735778 I10 Atrial fibrillation 4943 6004 I48.91 Chronic ki dney disease stage 3B 311702478 N18.32 Essential tremor 1648046 09 G25.0 Sleep apnea 28600468 G47 .30 Obesity 672232115 E66.9 [id number] Haim Dee MD [facility] Internal Med [place] [address] [facility] [address] [place] [address] 12/30/2024 12:21:34 12/30/2024 12:54:55 General examination of patient 524462914 Z00.00 [id number] Primary cardiomyopathy 50974535 I42.9 Essential hypertension 63054259 I10 Atrial fibrillation 4943 6004 I48.91 Gastroesop hageal reflux disease 326520455 K21.9 Diverticul itis of colon 368756144 K57.32 Obese class III 33380802 5 E66.01 Vitamin D deficiency 347 20524 E55.9 74864 Anxiety 53349298 F41.9 48944 Health Concerns Section Related Observation LastModified by Organization Detai ls LastModified Time None Recorded Concern Status LastModified by Organization Details LastModified Time None Recorded Advance Directives Directive Y: Payers Insurance Date Sequence Insurance Name Policy Number Policy Benavidez Covered Member ID Benavidez Member ID Guarantor Name 12/30/2024 1 [employer] (MEDICARE REPLACEMENT/ ADVANTAGE - PPO) [id number] 1 Lakshmi Pugh [id number] Lakshmi Pugh 12/30/2024 1 [facility] (MEDICARE REPLACEMENT/ ADVANTAGE - PPO) [id number] Lakshmi Pugh [id number] Lakshmi Pugh Notes Date Note Type Note Provider Name and Address Organization Details Recorded Time 4 text/html Patient Name: Lakshmi PughDate Of Service: Saturday ( 08.13.2023 ): 1950 Age: 73 There has been approximately a 5 lb weight loss since 04/09/2023. This represents approximately a 1.8% change in weight. Weight change attributable to lifestyle changes. Vital Signs:Blood Pressure: Sitting Rt. Arm 138/68Pulse: Sitting 70 /min and irregularRespiratory Rate: 12Height 64.5 in or 1.6 mWeight 275 lb or 124.7 kgBMI 46.5Temperature: 97 F or 36.1 CPulse Oximetry: 97 % at rest on no oxygen Chief Complaint: Addressed in HPI Problems or conditions discussed in the HPI were the only ones reviewed during the encounter.Only social and family history addressed in the HPI were reviewed during this encounter. Attendant(s): HusbandConstitutional and Systemic Symptoms:none Medication Reconciliation: from medication list. History of Present Illness #1. Cardiomyopathy: History of congestive cardiomyopathy. No interval complaints of any orthopnea, PND or chest pain. Currently functioning at a III level. ADL: Bathing, Dressing, Eating, Functional Mobility, Personal Hygiene and Toilet Hygiene #2. Essential Hypertension: Stage: Stage I Interval Neurological Complaints no headaches, dizziness, weakness, visual changes, ataxia, aphasia and apraxia. No shortness of breath, orthopnea or cardiovascular symptoms. No other symptoms related to end organ damage. Pressure has been under excellent control. Currently normal. No other end organ symptoms or findings. Therapy reviewed regarding management of hypertension and includes salt restriction and Bumetanide, Coreg, Hydralazine and Spironolactone. #3. Atrial Fibrillation: Type: Persistent with recurrent episodes lasting longer than 7 days. Further classification: Non-valvular. Associated history of congestive heart failure and essential hypertension. No attending hx of any shortness of breath, palpitations, syncopal or neurological symptoms. Current medications: Amiodarone Hydrochloride and Coreg. Rate control: controlled ventricular response [id number] Criteria: congestive heart failure for embolic phenomenon. Anticoagulation: Eliquis #4. History of chronic renal failure currently doing well. Currently is followed by a sternman. Stage: CKD-3b. Albumin Stage: A1. There has been no change in urine output or color. No fever or chills. #5. Hx of obesity. Currently Class 3 Obesity OR > 40. Has tried numerous dietary support and supplements with no benefit. Instructed on the health consequences of the obese status particularly cancer - diabetes and heart disease. Discussed other modalities of weight loss no. Potential candidate for bariatric surgery: No. Wishes to be evaluated by Dietary: No and was offered to be evaluated and instructed by customer operations representative on weight loss diet. Active Medication ListFerrous Sulfate 325 MG Once DailyVenlafaxine Hydrochloride 75 MG CAPSULE, EXTENDED RELEASE Once DailyReglan 10 MG TABLET One Three Times A Day Before MealsCoreg 25 MG (TABLET - ORAL) One Bid For CardiomyopathyEliquis 5 MG (TABLET - ORAL) One BidCpap 12 CM OsaTylenol 2 Every Four HoursAmiodarone Hydrochloride 200 MG (TABLET - ORAL) Once DailyHydralazine 50 MG TABLET One Twice A DayTemazepam 30 MG (CAPSULE - ORAL) One HsBumetanide 2 MG TABLET Once DailyCalcitriol .25 UG CAPSULE Once DailySpironolactone 25 MG TABLET One DailyFosamax 70 MG TABLET Weeklt Vaccination and Pofscbkxyqsk1513-98 Smxkufvlt2504-45 Covid Booster Iresyb0069-56 Covid Cvngaw4515-31 Prevnar 13 Zn3665-57 Pneumovax Surgical Qeuuwbe4932-47 AFIB Rnnbsadk1907-21 AFIB Vfykbuwb9097-18 Gkwrgjgvmkdcu2874-76 Left XWW8383-15 Lap Uhokrmaloyibfuv6201-71 Lt. Knee Surgery Preventative Guuprnz6512/26/2022 RDXCMEHFXVBRG03/04/2023 MAMMOGRAM DEXA SCAN08/07/2022 ALBUMIN 4.1 G/DL N011/02/2021 UPPER BJMFYURUL96/01/2022 COLONOSCOPY ( 10 YEARS ) 11/03/2031 Social Ffthnkk01 pack years of smoking. Smoked two packs daily forapproximately 30 years. Quit July 2011. Does notdrink. Is a manager legal. Family HistoryMother 82 years of age has hx of cardiomegaly,tremorand glaucoma. CRFFather 80 y/o hx of HTN and COPD. HxAAANo brothers or sisters. Haim Dee MD [address] [facility], [place], [address], [place] [facility] [employer] 08/13/2023 15:17:17 4 text/html Patient Name: Lakshmi Malone Of Service: Saturday ( 12.10.2023 ): 1950 Age: 73 Vital Signs:Blood Pressure: Sitting Rt. Arm 138/74Pulse: Sitting 64 /min and RegularRespiratory Rate: 16Height 64.5 in or 1.6 mWeight 276 lb or 125.2 kgBMI 46.6Temperature: 97 F or 36.1 CPulse Oximetry: 94 % at rest on no oxygen Chief Complaint: Addressed in HPI Problems or conditions discussed in the HPI were the only ones reviewed during the encounter.Only social and family history addressed in the HPI were reviewed during this encounter. A significant, separate E/M service was performed to evaluate the current and new problems. Attendant(s): HusbandConstitutional and Systemic Symptoms:none Medication Reconciliation: from medication list. History of Present Illness Reviewed the findings of the preventative health visit. Addressed all areas with the patient, patient's family or caregivers. Preventative examinations and testing immunizations - vaccinations, colonic neoplasm screening and mammograms all reviewed and ordered where patient was amenable to the recommendations. Cognitive function was normal. Depression addressed and where necessary medications were adjusted or instituted. End of life and living will briefly discussed with patient and where these can be filled out and legally executed. Other blood and imaging studies were ordered if considered necessary. Other recommendations may be found in the encounter note. #1. Essential Hypertension: Stage: Stage I Interval Neurological Complaints no headaches, dizziness, weakness, visual changes, ataxia, aphasia and apraxia. No shortness of breath, orthopnea or cardiovascular symptoms. No other symptoms related to end organ damage. Pressure has been under fair control. Currently normal. No other end organ symptoms or findings. Therapy reviewed regarding management of hypertension and includes salt restriction and Coreg and Hydralazine. #2. Atrial Fibrillation: Type: Paroxysmal with recurrent episodes lasting less than 7 days. Further classification: Non-valvular. Associated history of essential hypertension. No attending hx of any shortness of breath, palpitations, syncopal or neurological symptoms. Current medications: Coreg. Rate control: controlled ventricular response [id number] Criteria: hypertension, Age > 75 and and considered moderate risk for embolic phenomenon. Anticoagulation: Eliquis #3. osteoporosis. No new complaints of any additional back,hip or other musculoskeletal complaints related to the osteoporosis. No hx of any recent trauma. Currently taking OsCal-D and Fosamax. Has has had a recent DEXA scan done within the last year. The FRAX Score for Hip Fracture is NA hx osteoporosis FRAX score for major fractures NA hx of osteoporosis #4. History of chronic renal failure currently doing well. Currently is followed by a sternman. Stage: CKD-3b. Albumin Stage: A1. There has been no change in urine output or color. No fever or chills. #5. Hx of obesity. Currently Class 3 Obesity OR > 40. Has tried numerous dietary support and supplements with no benefit. Instructed on the health consequences of the obese status particularly cancer - diabetes and heart disease. Discussed other modalities of weight loss no . Potential candidate for bariatric surgery: No. Wishes to be evaluated by Dietary: No and was offered to be evaluated and instructed by customer operations representative on weight loss diet. Active Medication ListFerrous Sulfate 325 MG Once DailyVenlafaxine Hydrochloride 75 MG CAPSULE, EXTENDED RELEASE Once DailyReglan 10 MG TABLET One Three Times A Day Before MealsCoreg 25 MG (TABLET - ORAL) One Bid For CardiomyopathyEliquis 5 MG (TABLET - ORAL) One BidCpap 12 CM OsaTylenol 2 Every Four HoursAmiodarone Hydrochloride 200 MG (TABLET - ORAL) Once DailyHydralazine 50 MG TABLET One Twice A DayTemazepam 30 MG (CAPSULE - ORAL) One HsBumetanide 2 MG TABLET Once DailyCalcitriol .25 UG CAPSULE Once DailySpironolactone 25 MG TABLET One DailyFosamax 70 MG TABLET Weeklt Vaccination and Immunization( ) 2007-12 PNEUMOVAX( ) 2023-12 INFLUENZA( ) 2014-02 PREVNAR 13 GC( ) 2020-06 COVID PFIZER(X) 2021-12 COVID BOOSTER PFIZER( ) 2023-12 PREVNAR 20 Surgical Vkbgkiy5809-90 AFIB Rtifeszk1614-83 AFIB Yhdkssql5432-16 Igotduccxblgf8501-42 Left SSD7039-34 Lap Zgdnumwvuopagla0363-53 Lt. Knee Surgery Preventative Testing( ) 10/16/2023 Ophthalmology( ) 08/13/2023 Albumin 4.1 G/DL( ) 12/05/2022 Mammogram 12/05/2024( ) 12/05/2022 DEXA Scan 12/05/2024( ) 11/02/2021 Upper Endoscopy( ) 11/02/2021 Colonoscopy ( 10 Years ) 11/03/2031 Social Fgzlyzu99 pack years of smoking. Smoked two packs daily forapproximately 30 years. Quit July 2011. Does notdrink. Is a manager legal. Family HistoryMother 82 years of age has hx of cardiomegaly,tremorand glaucoma. CRFFather 80 y/o hx of HTN and COPD. HxAAANo brothers or sisters. Haim Dee MD [address] [place] [address], [address], [place] [facility] [employer] 12/10/2023 16:09:20 5 text/html Patient Name: Lakshmi PughDate Of Service: Saturday ( 04.14.2024 ): 1950 Age: 73 There has been approximately a 7.5 lb weight loss since 12/10/2023. This represents approximately a 2.7% change in weight. Weight change attributable to lifestyle changes. Vital Signs:Blood Pressure: Sitting Rt. Arm 134/74Pulse: Sitting 70 /min and RegularRespiratory Rate: 16Height 64.5 in or 1.6 mWeight 268.5 lb or 121.8 kgBMI 45.4 Chief Complaint: Addressed in HPI Problems or conditions discussed in the HPI were the only ones reviewed during the encounter.Only social and family history addressed in the HPI were reviewed during this encounter. Attendant(s): HusbandConstitutional and Systemic Symptoms:none Medication Reconciliation: from medication list. History of Present Illness #1. Essential Hypertension: Stage: Stage I Interval Neurological Complaints no headaches, dizziness, weakness, visual changes, ataxia, aphasia and apraxia. No shortness of breath, orthopnea or cardiovascular symptoms. No other symptoms related to end organ damage. Pressure has been under excellent control. Currently normal. No other end organ symptoms or findings. Therapy reviewed regarding management of hypertension and includes salt restriction and Amiodarone Hydrochloride, Bumetanide, Coreg, Hydralazine and Spironolactone. #2. Cardiomyopathy: History of congestive cardiomyopathy. No interval complaints of any orthopnea, PND or chest pain. Currently functioning at a II level. ADL: Bathing #3. Atrial Fibrillation: Type: Paroxysmal with recurrent episodes lasting less than 7 days. Further classification: Non-valvular. Associated history of HTN. No attending hx of any shortness of breath, palpitations, syncopal or neurological symptoms. Current medications: Amiodarone Hydrochloride and Coreg. Rate control: controlled ventricular response [id number] Criteria: congestive heart failure and Age > 75 for embolic phenomenon. Anticoagulation: Eliquis #4. History of chronic renal failure currently doing well. Currently is followed by a sternman. Stage: CKD-3a. Albumin Stage: A1. There has been no change in urine output or color. No fever or chills. #5. Hx of obesity. Currently Class 3 Obesity OR > 40. Has tried numerous dietary support and supplements with no benefit. Instructed on the health consequences of the obese status particularly cancer - diabetes and heart disease. Discussed other modalities of weight loss GLP-1 medications that are used to treat diabetes . Potential candidate for bariatric surgery: No. Wishes to be evaluated by Dietary: No and was offered to be evaluated and instructed by customer operations representative on weight loss diet. Active Medication ListFerrous Sulfate 325 MG Once DailyVenlafaxine Hydrochloride 75 MG CAPSULE, EXTENDED RELEASE Once DailyReglan 10 MG TABLET One Three Times A Day Before MealsCoreg 25 MG (TABLET - ORAL) One Bid For CardiomyopathyEliquis 5 MG (TABLET - ORAL) One BidCpap 12 CM OsaTylenol 2 Every Four HoursAmiodarone Hydrochloride 200 MG (TABLET - ORAL) Once DailyHydralazine 50 MG TABLET One Twice A DayTemazepam 30 MG (CAPSULE - ORAL) One HsBumetanide 2 MG TABLET Once DailyCalcitriol .25 UG CAPSULE Once DailySpironolactone 25 MG TABLET One DailyFosamax 70 MG TABLET Weeklt Vaccination and Immunization( ) 2007-12 PNEUMOVAX( ) 2023-12 INFLUENZA( ) 2014-02 PREVNAR 13 GC( ) 2020-06 COVID PFIZER(X) 2021-12 COVID BOOSTER PFIZER( ) 2023-12 PREVNAR 20 Surgical Nfmrsbd3030-74 AFIB Pfaygnyn9307-91 AFIB Keytynrt6990-51 Mpocvwknvmqzt5632-08 Left GOF7488-07 Lap Siakxodaqivkboc6053-70 Lt. Knee Surgery Preventative Testing( ) 12/11/2023 Ophthalmology( ) 08/13/2023 Albumin 4.1 G/DL( ) 12/05/2022 Mammogram 12/05/2024( ) 12/05/2022 DEXA Scan 12/05/2024(X) 11/02/2021 Upper Endoscopy 11/03/2023( ) 11/02/2021 Colonoscopy ( 10 Years ) 11/03/2031 Social Yyvjcjd61 pack years of smoking. Smoked two packs daily forapproximately 30 years. Quit July 2011. Does notdrink. Is a manager legal. Family HistoryMother 82 years of age has hx of cardiomegaly,tremorand glaucoma. CRFFather 80 y/o hx of HTN and COPD. HxAAANo brothers or sisters. TEST RESULT RANGE UNITSCBC/COMPLETE BLD COUNT W/DIFF Date: 12/10/2023WHITE BLOOD CELLS 6.5 4.2-10.8 X10'3/ULHEMOGLOBIN 12.5 12.0-15.6 G/DLHEMATOCRIT 40.0 35.7-45.7 %PLATELETS 159 150-400 X10'3/ULPARATHY.HORM(PTH)I NTACT-W/O CA Date: 12/10/2023INTACT PARATHYROID HORMONE 181.8 24.0-78.0 PG/MLPHOSPHORUS Date: 12/10/2023HOSPHORUS 3.8 2.5-4.5 MG/DLT4 FREE Date: 12/10/2023FREE T4 1.36 0.78-2.19 NG/DLTSH Date: 12/10/2023THYROID-STIMULAT ING HORMONE 3.760 0.465-4.680 UIU/MLVITAMIN D 25-HYDROXY Date: 12/10/2023 Haim Dee MD [address] [facility], [address], [place], [address], [place] [facility] [employer] 04/14/2024 15:29:01 5 text/html Patient Name: Lakshmi PughDate Of Service: Saturday ( 08.11.2024 ): 1950 Age: 74 There has been approximately a 4 lb weight gain since 04/14/2024. This represents approximately a 1.5% change in weight. Weight change attributable to lifestyle changes. Vital Signs:Blood Pressure: Sitting Rt. Arm 124/80Pulse: Sitting 70 /min and RegularRespiratory Rate: 16Height 64.5 in or 1.6 mWeight 272.5 lb or 123.6 kgBMI 46.0Temperature: 97 F or 36.1 CPulse Oximetry: 95 % at rest on no oxygen Chief Complaint: Addressed in HPI Problems or conditions discussed in the HPI were the only ones reviewed during the encounter.Only social and family history addressed in the HPI were reviewed during this encounter. Attendants(s) + NoneConstitutional and Systemic Symptoms:none Medication Reconciliation: from medication list. History of Present Illness #1. Essential Hypertension: Stage: Stage I Interval Neurological Complaints no headaches, dizziness, weakness, visual changes, ataxia, aphasia and apraxia. No shortness of breath, orthopnea or cardiovascular symptoms. No other symptoms related to end organ damage. Pressure has been under fair control. Currently normal. No other end organ symptoms or findings. Therapy reviewed regarding management of hypertension and includes salt restriction and Olmesartan Medoxomil and Spironolactone. #2. Atrial Fibrillation: Type: Persistent with recurrent episodes lasting longer than 7 days. Further classification: Lone atrial fibrillation. Associated history of none. No attending hx of any shortness of breath, palpitations, syncopal or neurological symptoms. Current medications: Amiodarone Hydrochloride. Rate control: controlled ventricular response [id number] Criteria: Age > 75 for embolic phenomenon. Anticoagulation: Eliquis #3. History of chronic renal failure currently doing well. Currently is followed by a sternman. Stage: CKD-3b. Albumin Stage: A1. There has been no change in urine output or color. No fever or chills. #4. Essential Tremor: History of essential tremor. Predominately involves the arms. There has been no change in severity or interference with activities of daily living. No additional neurological symptoms. #5. Sleep Apnea: Type: MARCOS Current doing well. No significant daytime somnolence or problems performing daily chores. intermittently using the CPAP . Overall has shown some improvement.[place] Sleepiness ScaleSitting and ReadinWatching TV: 1Sitting Inactive in a Public Place: 0Passenger in a Car: 1Lying Down in Afternoon: 1Sitting and Talking to someone: 0Sitting quietly after lunch: 1In a car while stopped or drivinScore Interpretation: 0-7 No evidence of abnormally sleepy #6. Hx of obesity. Currently Class 3 Obesity OR > 40. Has tried numerous dietary support and supplements with no benefit. Instructed on the health consequences of the obese status particularly cancer - diabetes and heart disease. Discussed other modalities of weight loss no . Potential candidate for bariatric surgery: No. Wishes to be evaluated by Dietary: No and was offered to be evaluated and instructed by customer operations representative on weight loss diet. Active Medication ListMetronidazole 500 MG TABLET One Every Eight HoursOlmesartan Medoxomil 5 MG TABLET 2 Tablets At BedtimeFerrous Sulfate 325 MG Once DailyVenlafaxine Hydrochloride 75 MG CAPSULE, EXTENDED RELEASE Once DailyReglan 10 MG TABLET One Three Times A Day Before MealsCoreg 25 MG (TABLET - ORAL) One Bid For CardiomyopathyEliquis 5 MG (TABLET - ORAL) One BidCpap 12 CM OsaTylenol 2 Every Four HoursAmiodarone Hydrochloride 200 MG (TABLET - ORAL) Once DailyMetrogel 30 MG (CAPSULE - ORAL) One HsBumetanide 2 MG TABLET Once DailyCalcitriol .25 UG CAPSULE Once DailySpironolactone 25 MG TABLET One DailyFosamax 70 MG TABLET Weeklt Adverse Drug Reactions ReviewedNo Known Adverse Drug Reactions! Vaccination and Immunization ( ) 2007-12 PNEUMOVAX( ) 2023-12 INFLUENZA( ) 2014-02 PREVNAR 13 GC( ) 2020-06 COVID PFIZER(X) 2021-12 COVID BOOSTER PFIZER( ) 2023-12 PREVNAR 20Immunizations and Vaccinations Discussed and Implemented if feasible In the Office. Else referred to pharmacies. Surgical History 2021-01 AFIB Zidciqot8513-15 AFIB Ovjexqif5650-55 Kpypsyzivsvvh3831-54 Left [id number] Lap Yerpsxbzkyzetyc0305-78 Lt. Knee Surgery Preventative Testing ( ) 06/16/2024 Optometry( ) 04/29/2024 Albumin 3.7 G/DL N( ) 04/29/2024 HAIC 5.8 % OF TOTAL HGB H( ) 12/11/2023 Ophthalmology( ) 12/05/2022 Mammogram 12/05/2024( ) 12/05/2022 DEXA Scan 12/05/2024(X) 11/02/2021 Upper Endoscopy 11/03/2023( ) 11/02/2021 Colonoscopy ( 10 Years ) 11/03/2031reventative Testing Discussed and Scheduled if Acceptable to Patient Social Mwsceax88 pack years of smoking. Smoked two packs daily forapproximately 30 years. Quit July 2011. Does notdrink. Is a manager legal. Family HistoryMother 82 years of age has hx of cardiomegaly,tremorand glaucoma. CRFFather 80 y/o hx of HTN and COPD. HxAAANo brothers or sisters. TEST RESULT RANGE UNITSCREATININE CLEARANCE W/O EGFR Date: 05/20/2024REATININE 1.48 0.60-1.00 MG/DLCREATININE CLEARANCE 45 75-115 ML/MINHEIGHT FEET 5 FTCBC (INCLUDES DIFF/PLT) Date: 04/29/2024WHITE BLOOD CELL COUNT 5.3 3.8-10.8 THOUSAND/ULHEMOGLOBIN 10.7 11.7-15.5 G/DLHEMATOCRIT 33.7 35.0-45.0 %PLATELET COUNT 181 140-400 THOUSAND/ULPROTEIN, TOTAL, 24 HOUR URINE (W/O CREATININE) Date: 05/20/2024PROTEIN, TOTAL, 24 HR UR 168 <150 MG/24 HVITAMIN B12 Date: 05/11/2024VITAMIN B12 [phone] PG/ML Haim Dee MD [address] [facility] [address], [place], [address], [place] [facility] 08/11/2024 15:13:21 text/html Patient Name: Lakshmi Solisestela Of Service: Saturday ( 12.30.2024 ): 1950 Age: 74 There has been approximately a 6.5 lb weight loss since 08/11/2024. This represents approximately a 2.4% change in weight. Weight change attributable to lifestyle changes. Vital Signs:Blood Pressure: Sitting Rt. Arm 128/64Pulse: Sitting 70 /min and RegularRespiratory Rate: 16Height 64.5 in or 1.6 mWeight 266 lb or 120.7 kgBMI 44.9Temperature: 97.2 F or 36.2 CPulse Oximetry: 95 % at rest on no oxygen Chief Complaint: Addressed in HPI Problems or conditions discussed in the HPI were the only ones reviewed during the encounter.Only social and family history addressed in the HPI were reviewed during this encounter. A significant, separate E/M service was performed to evaluate the current and new problems. Attendants(s) + NoneConstitutional and Systemic Symptoms:none Medication Reconciliation: from medication list. History of Present Illness Reviewed the findings of the preventative health visit. Addressed all areas with the patient, patient's family or caregivers. Preventative examinations and testing immunizations - vaccinations, colonic neoplasm screening and mammograms all reviewed and ordered where patient was amenable to the recommendations. Cognitive function see HPI but demonstrated no overall change in cognitive status . Depression addressed and where necessary medications were adjusted or instituted. End of life and living will briefly discussed with patient and where these can be filled out and legally executed. Other blood and imaging studies were ordered if considered necessary. Other recommendations may be found in the encounter note. #1. Cardiomyopathy: History of Hypertrophic Cardiomyopathy cardiomyopathy. No interval complaints of any orthopnea, PND or chest pain. Currently functioning at a III level. ADL: Bathing, Dressing, Eating, Functional Mobility, Personal Hygiene and Toilet Hygiene #2. Essential Hypertension: Stage: Stage I Interval Neurological Complaints no headaches, dizziness, weakness, visual changes, ataxia, aphasia and apraxia. No shortness of breath, orthopnea or cardiovascular symptoms. No other symptoms related to end organ damage. Pressure has been under fair control. Currently normal. No other end organ symptoms or findings. Therapy reviewed regarding management of hypertension and includes Coreg, Olmesartan Medoxomil and Spironolactone. #3. Atrial Fibrillation: Type: Persistent with recurrent episodes lasting longer than 7 days. Further classification: Non-valvular. Associated history of HTN and congestive heart failure. No attending hx of any shortness of breath, palpitations, syncopal or neurological symptoms. Current medications: Amiodarone Hydrochloride and Coreg. Rate control: controlled ventricular response [id number] Criteria: Eliquis for embolic phenomenon. Anticoagulation: none #4. Hx of esophageal reflux currently stable. Hx of Complications: increased The severity, duration and intensity of symptoms have most meals and nocturnal. Frequency: a regular Treatment consists medications taken on Nexium basis. Current therapy includes no nausea, eructation, vomiting, hematemesis, dysphagia, velopharyngeal insufficiency and odynophagia. There has been no. No change in he frequency or intensity of symptoms. Has had no melena. Has had and the possibility of trying to reduce the frequency of the use of any PPI inhibitors and try H2 antagonists to see if symptoms can be controlled with lease intensive therapy since a number of complications are associated with chronic prolonged use of PPI inhibitors . Discussed use of H2 antagonists Class 3 Obesity OR > 40. #5. Hx of obesity. Currently no. Has tried numerous dietary support and supplements with no benefit. Instructed on the health consequences of the obese status particularly cancer - diabetes and heart disease. Discussed other modalities of weight loss No . Potential candidate for bariatric surgery: No and was offered to be evaluated and instructed by customer operations representative on weight loss diet. Wishes to be evaluated by Dietary: No and was offered to be evaluated and instructed by customer operations representative on weight loss diet. Wellness Evaluation __ PHQ-2 Score Last Two Weeks Last Two Weeks: 0: Not at all 1: Several Days 2: More than half 3: Almost Every day #1. Little interest or pleasure in doing things: Not At All :Score 0#2. Feeling down, depressed, or hopeless: Not At All :Score 0Minimal or no Depression 0Function Status Staging: No demonstrable functional decline Basic ADLS Ambulation: RolatorGrooming: General Personal Hygiene NormalToiletry: Self SufficientDressing: Dresses Without AssistanceEating: Self Sufficient Instrumental ADLS Managing Finances YesManaging Health YesShopping YesPreparing Meals YesUsing Technology YesHouse Work YesTaking Care of Pets YesTaking Care Children YesTransportation Yes Additional Topics Advanced Directives: DeclinedLiving Will: DeclinedCode Status: Full Code Additional Comments Topics listed or those only pertinent to the patient or care givers. Mini Mental Status Exam Orientation: Year - Season + Month + Date + Day + Score: 4Location: Country + County + City + Facility + Room + Score: 5Registration: House + Car + Airplane + Score: 3Attention: D + L + R + O + W + Score: 5Recall: House + Car + Airplane + Score: 3Language: Watch + Pencil + Score: 2Repetition: No ifs, ands, or buts + Score: 1Sentence: Write a Sentence + Sentence: My name is Missy, how do you do?Score: 1Reading: Close Eyes + Score: 1Pentagons: Copy Design + Score: 1Command: Hand + Fold In Half + Put Down + Score: 3 Total Test Score: 29 /30 Normal Possible Functional ImpairmentActivities of Daily Living: Probably NormalCommunication: Probably NormalMemory: Probably Normal Social and Physical Activities Drinking History: NoneExercise 20 Minutes per Week: No, do not exercise muchDifficulty Driving Car: NoOther Problems:NoneSmoking History: Quit SmokingCannabis History: Does Not UseVaping History: Does Not Vape Active Medication ListMetronidazole 500 MG TABLET One Every Eight HoursOlmesartan Medoxomil 5 MG TABLET 2 Tablets At BedtimeFerrous Sulfate 325 MG Once DailyVenlafaxine Hydrochloride 75 MG CAPSULE, EXTENDED RELEASE Once DailyTemazepam 30 MG CAPSULE One At BedtimeNexium 40 MG CAPSULE, DELAYED RELEASE One DailyCoreg 25 MG (TABLET - ORAL) One Bid For CardiomyopathyEliquis 5 MG (TABLET - ORAL) One BidCpap 12 CM OsaTylenol 2 Every Four HoursAmiodarone Hydrochloride 200 MG (TABLET - ORAL) Once DailyMetrogel 30 MG (CAPSULE - ORAL) One HsBumetanide 2 MG TABLET Once DailySpironolactone 25 MG TABLET One DailyFosamax 70 MG TABLET Weeklt Adverse Drug Reactions ReviewedNo Known Adverse Drug Reactions! Vaccination and Immunization( ) 2007-12 PNEUMOVAX(X) 2023-12 INFLUENZA( ) 2014-02 PCV13( ) 2020- COVID PFIZER(X) 2021-12 COVID BOOSTER PFIZER( ) 2023-12 PCV20(X) RSV Recommended(X) Shingrix Recommended(X) Tetanus or TD RecommendedImmunizations and Vaccinations Discussed and Implemented if feasible In the Office. Else referred to pharmacies. Surgical Ecvzvmj5487-75 AFIB Ciqcxnkt0007-71 AFIB Ssthiwyh6487-85 Qtyyffvhmimqt7025-86 Left [id number] Lap Xkzysgeimzafcij9097-78 Lt. Knee Surgery Preventative Testing: (X) Due (?) Optional( ) 06/16/2024 Optometry( ) 04/29/2024 Albumin 3.7 G/DL N( ) 04/29/2024 HAIC 5.8 % OF TOTAL HGB H( ) 12/11/2023 Ophthalmology(X) 12/05/2022 Mammogram 12/06/2023(X) 12/05/2022 DEXA Scan 12/05/2024(X) 11/02/2021 Upper Endoscopy 11/02/2022( ) 11/02/2021 Colonoscopy ( 10 Years ) 11/03/2031reventative Testing Discussed with Patient and Attendants Social Orictes54 pack years of smoking. Smoked two packs daily forapproximately 30 years. Quit July 2011. Does notdrink. Is a manager legal. Family HistoryMother 82 years of age has hx of cardiomegaly,tremorand glaucoma. CRFFather 80 y/o hx of HTN and COPD. HxAAANo brothers or sisters. Active Medication ListMetronidazole 500 MG TABLET One Every Eight HoursOlmesartan Medoxomil 5 MG TABLET 2 Tablets At BedtimeFerrous Sulfate 325 MG Once DailyVenlafaxine Hydrochloride 75 MG CAPSULE, EXTENDED RELEASE Once DailyTemazepam 30 MG CAPSULE One At BedtimeNexium 40 MG CAPSULE, DELAYED RELEASE One DailyCoreg 25 MG (TABLET - ORAL) One Bid For CardiomyopathyEliquis 5 MG (TABLET - ORAL) One BidCpap 12 CM OsaTylenol 2 Every Four HoursAmiodarone Hydrochloride 200 MG (TABLET - ORAL) Once DailyMetrogel 30 MG (CAPSULE - ORAL) One HsBumetanide 2 MG TABLET Once DailySpironolactone 25 MG TABLET One DailyFosamax 70 MG TABLET Weeklt Adverse Drug Reactions ReviewedNo Known Adverse Drug Reactions! Vaccination and Immunization( ) 2007-12 PNEUMOVAX(X) 2023-12 INFLUENZA( ) 2014-02 PCV13( ) 2020-06 COVID PFIZER(X) 2021-12 COVID BOOSTER PFIZER( ) 2023-12 PCV20(X) RSV Recommended(X) Shingrix Recommended(X) Tetanus or TD RecommendedImmunizations and Vaccinations Discussed and Implemented if feasible In the Office. Else referred to pharmacies. Surgical Cpkjbbl3998-32 AFIB Wrysuwdx9250-78 AFIB Jdshatog2092-07 Llqztwjlwtjab2016-38 Left [id number] Lap Vebfvjbzchrgttr7267-91 Lt. Knee Surgery Preventative Testing: (X) Due (?) Optional( ) 06/16/2024 Optometry( ) 04/29/2024 Albumin 3.7 G/DL N( ) 04/29/2024 HAIC 5.8 % OF TOTAL HGB H( ) 12/11/2023 Ophthalmology(X) 12/05/2022 Mammogram 12/06/2023(X) 12/05/2022 DEXA Scan 12/05/2024(X) 11/02/2021 Upper Endoscopy 11/02/2022( ) 11/02/2021 Colonoscopy ( 10 Years ) 11/03/2031reventative Testing Discussed with Patient and Attendants Social Ysskath34 pack years of smoking. Smoked two packs daily forapproximately 30 years. Quit July 2011. Does notdrink. Is a manager legal. Family HistoryMother 82 years of age has hx of cardiomegaly,tremorand glaucoma. CRFFather 80 y/o hx of HTN and COPD. HxAAANo brothers or sisters. Haim Dee MD [address] [facility], [address], [place], [address], [place] [facility] [employer] 12/30/2024 12:49:12 OBGyn Episode No OBEpisode recorded.
--- OUTSIDE RECORDS SUMMARY | 2025-02-17 03:48 | XMS_ITS | Encounter Summary ---
Author Organization [facility] Address [address] [place] [address] Phone Care Team Providers Care Heating And Cooling Technician Name Role Phone Haim Dee MD Primary Care Provider Encounter Details Date Type Department Care Team (Late st Contact Info) Description 03/10/2015 Orders Only [facility] Provider, MD Lashanda [address] [place] [id number] Social History Tobacco Use Types Packs/Day Years Used Date Smoking Tobacco: Never Assessed Comments Unknown Sex and Gender Information Value Date Recorded Sex Assigned at Not on file Legal Sex Female 2:31 AM JUDO INSTRUCTOR Gender Identity Not on file Sexual Orientation Not on file documented as of this encounter Plan of Treatment Not on file documented as of this encounter Procedures Procedure Name Priority Date/Time Associated Diagnosis Comments CARDIOLOGY REPORT 03/10/2015 documented in this encounter Results * CARDIOLOGY REPORT (03/10/2015) Anatomical Region Laterality Modality Other Narrative 03/10/2015 Ordered by an unspecified provider. Historical Provider [facility] PREM LIN Final Result documented in this encounter Visit Diagnoses Not on filedocumented in this encounter Care Teams Heating And Cooling Technician Relationship Specialty Start Date End Date Haim Dee MD PCP - General 05/21/16 documented as of this encounter
--- OUTSIDE RECORDS SUMMARY | 2025-02-17 03:48 | XMS_ITS | Encounter Summary ---
Author Organization [facility] Address [address] [place] [address] Phone Care Team Providers Care Floor Technician Name Role Phone Haim Dee MD Primary Care Provider Encounter Details Date Type Department Care Team (Late st Contact Info) Description 03/23/2016 Orders Only [facility]INCONV Provider, MD Lashanda [address] [place] [id number] Social History Tobacco Use Types Packs/Day Years Used Date Smoking Tobacco: Never Assessed Comments Unknown Sex and Gender Information Value Date Recorded Sex Assigned at Not on file Legal Sex Female 2:31 AM OPERATOR/ASSISTANT FOREMAN Gender Identity Not on file Sexual Orientation Not on file documented as of this encounter Plan of Treatment Not on file documented as of this encounter Procedures Procedure Name Priority Date/Time Associated Diagnosis Comments CARDIOLOGY REPORT 03/23/2016 documented in this encounter Results * CARDIOLOGY REPORT (03/23/2016) Anatomical Region Laterality Modality Other Narrative 03/23/2016 Ordered by an unspecified provider. Historical Provider CV CARDIAC SERVICES PREM LIN Final Result documented in this encounter Visit Diagnoses Not on filedocumented in this encounter Care Teams Floor Technician Relationship Specialty Start Date End Date Haim Dee MD PCP - General 05/21/16 documented as of this encounter
--- OUTSIDE RECORDS SUMMARY | 2025-02-17 03:48 | XMS_ITS | Encounter Summary ---
Author Organization [facility] Address [address] [place] [address] Phone Care Team Providers Care Washhouse Worker Name Role Phone Haim Dee MD Primary Care Provider Encounter Details Date Type Department Care Team (Late st Contact Info) Description 08/02/2014 Orders Only [facility]INCONV Provider, MD Lashanda [address] [place] [id number] Social History Tobacco Use Types Packs/Day Years Used Date Smoking Tobacco: Never Assessed Comments Unknown Sex and Gender Information Value Date Recorded Sex Assigned at Not on file Legal Sex Female 2:31 AM ELECTRICIAN SOUND Gender Identity Not on file Sexual Orientation Not on file documented as of this encounter Plan of Treatment Not on file documented as of this encounter Procedures Procedure Name Priority Date/Time Associated Diagnosis Comments CARDIOLOGY REPORT 08/02/2014 documented in this encounter Results * CARDIOLOGY REPORT (08/02/2014) Anatomical Region Laterality Modality Other Narrative 08/02/2014 Ordered by an unspecified provider. Historical Provider CV CARDIAC SERVICES PREM LIN Final Result documented in this encounter Visit Diagnoses Not on filedocumented in this encounter Care Teams Washhouse Worker Relationship Specialty Start Date End Date Haim Dee MD PCP - General 05/21/16 documented as of this encounter
--- OUTSIDE RECORDS SUMMARY | 2025-02-17 03:48 | XMS_ITS | Encounter Summary ---
Author Organization [facility] Address [address] [place] [address] Phone Care Team Providers Care Web Coordinator Name Role Phone Haim Dee MD Primary Care Provider Encounter Details Date Type Department Care Team (Late st Contact Info) Description 01/20/2014 Orders Only [facility] CLINCONV Provider, MD Lashanda [address] [place] [id number] Social History Tobacco Use Types Packs/Day Years Used Date Smoking Tobacco: Never Assessed Comments Unknown Sex and Gender Information Value Date Recorded Sex Assigned at Not on file Legal Sex Female 2:31 AM ASSESSMENT EXPERT Gender Identity Not on file Sexual Orientation Not on file documented as of this encounter Plan of Treatment Not on file documented as of this encounter Procedures Procedure Name Priority Date/Time Associated Diagnosis Comments CARDIOLOGY REPORT 01/20/2014 documented in this encounter Results * CARDIOLOGY REPORT (01/20/2014) Anatomical Region Laterality Modality Other Narrative 01/20/2014 Ordered by an unspecified provider. Historical Provider CV CARDIAC SERVICES PREM LIN Final Result documented in this encounter Visit Diagnoses Not on filedocumented in this encounter Care Teams Web Coordinator Relationship Specialty Start Date End Date Haim Dee MD PCP - General 05/21/16 documented as of this encounter
--- OUTSIDE RECORDS SUMMARY | 2025-02-17 03:48 | XMS_ITS | Clinical Summary ---
Author Organization [facility] Address [address] [place] [address] Care Team Providers Care Cabinetmaker Apprentice Name Role Phone Haim Dee MD Primary Care Provider [phone] Gabriel Garcia DO Unavailable [phone] Source Comments [facility],non-owned Affiliates and Associated Physician Practices is amultiple site organization consisting of ambulatory clinics and hospital sitesin [place], [place], [place] and [place]. This disclosure is being madepursuant to the Care Everywhere program and may not contain all information available regarding this patient. Last updated 17.[facility] Allergies Active Allergy Reactions Criticality Noted Date Comments Latex Skin Reactions High 06/30/2019 blisters Active Problems Problem Noted Date Diagnosed Date Chronic kidney disease, stage III (moderate) Anemia in stage 3 chronic kidney disease 022 Social History Tobacco Use Types Packs/Day Years Used Date Smoking Tobacco: Never Assessed Comments Unknown Sex and Gender Information Value Date Recorded Sex Assigned at Not on file Legal Sex Female 10:36 AM CDT Gender Identity Not on file Sexual Orientation Not on file Last Filed Vital Signs Vital Sign Reading Time Taken Comments Blood Pressure 131/68 12/07/2021 11:18 AM CDT Pulse 70 12/07/2021 11:18 AM CDT Temperature 36.8 C (98.3 F) 12/07/2021 11:18 AM CDT Respiratory Rate 16 12/07/2021 11:18 AM CDT Oxygen Saturation 98% 12/07/2021 11:18 AM CDT Inhaled Oxygen Concentration - - Weight - - Height - - Body Mass Index - - Plan of Treatment Health Maintenance Due Date Last Done Comments BONE DENSITY TESTING 1950 HEPATITIS C SCREENING 04/17/1966 DTAP/TDAP/TD VACCINES (1 - Tdap) 1967 PNEUMOCOCCAL VACCINE 50+ (1 of 1 - PCV) 1998 ZOSTER VACCINE (1 of 2) 1998 Respiratory Syncytial Virus (RSV) Vaccine Pt: or over 60 yrs (1 - 1-dose 75+ series) 2023 DEPRESSION SCREENING 03/04/2024 COVID-19 VACCINE (1 - 2024- season) 2024 INFLUENZA VACCINE (#1) 2024 0, 12/01/2015, 11/19/2013, Additional history exists HEPATITIS B VACCINE Aged Out No longe r eligible based on patient's age to complete this topic HIB VACCINE Aged Out No longer eligi ble based on patient's age to complete this topic HPV VACCINE Aged Out No longer eligi ble based on patient's age to complete this topic MENINGOCOCCAL (Group B) VACCINE SHARED DECISION-MAKING Aged Out No longer eligible based on patient's age to complete this topic MENINGOCOCCAL GROUPS A/C/Y/W VACCINE Aged Out No longer eligible based on patient's age to complete this topic Insurance MANAGED MEDICARE ADV Care Teams Cabinetmaker Apprentice Relationship Specialty [place] [address] [place] [address] [address] [place] [address] PCP - General Internal Medicine 11/01/21 [place] [id number] [place] [address] Nephrology 11/01/21
--- OUTSIDE RECORDS SUMMARY | 2025-02-17 03:48 | XMS_ITS | Encounter Summary ---
Author Organization [facility] Address [address] [place] [address] Phone Care Team Providers Care Water Safety Instructor Name Role Phone Haim Dee MD Primary Care Provider Encounter Details Date Type Department Care Team (Late st Contact Info) Description 07/08/2013 Orders Only [facility] Provider, MD Lashanda [address] [place] [id number] Social History Tobacco Use Types Packs/Day Years Used Date Smoking Tobacco: Never Assessed Comments Unknown Sex and Gender Information Value Date Recorded Sex Assigned at Not on file Legal Sex Female 2:31 AM CARPENTER'S ASSISTANT Gender Identity Not on file Sexual Orientation Not on file documented as of this encounter Plan of Treatment Not on file documented as of this encounter Procedures Procedure Name Priority Date/Time Associated Diagnosis Comments CARDIOLOGY REPORT 07/08/2013 documented in this encounter Results * CARDIOLOGY REPORT (07/08/2013) Anatomical Region Laterality Modality Other Narrative 07/08/2013 Ordered by an unspecified provider. Historical Provider [facility] Final Result documented in this encounter Visit Diagnoses Not on filedocumented in this encounter Care Teams Water Safety Instructor Relationship Specialty Start Date End Date Haim Dee MD PCP - General 05/21/16 documented as of this encounter
--- OUTSIDE RECORDS SUMMARY | 2025-02-17 03:48 | XMS_ITS | Encounter Summary ---
Author Organization [facility] Address [address] [place] [address] Phone Care Team Providers Care Beauty Artist Name Role Phone Haim Dee MD Primary Care Provider Encounter Details Date Type Department Care Team (Late st Contact Info) Description 09/15/2015 Orders Only [facility] Provider, MD Lashanda [address] [place] [address] Social History Tobacco Use Types Packs/Day Years Used Date Smoking Tobacco: Never Assessed Comments Unknown Sex and Gender Information Value Date Recorded Sex Assigned at Not on file Legal Sex Female 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 Historical Provider [facility] PREM LIN Final Result * CARDIOLOGY REPORT (09/15/2015) Anatomical Region Laterality Modality Other Narrative 09/15/2015 Ordered by an unspecified provider. us Historical Provider [facility] PREM LIN Final Result documented in this encounter Visit Diagnoses Not on filedocumented in this encounter Care Teams Beauty Artist Relationship Specialty Start Date End Date Haim Dee MD PCP - General 05/21/16 documented as of this encounter
--- OUTSIDE RECORDS SUMMARY | 2025-02-17 03:48 | XMS_ITS | Encounter Summary ---
Author Organization [facility] Address [address] [place] [address] Phone Care Team Providers Care Clinical Abstractor Name Role Phone Haim Dee MD Primary Care Provider Encounter Details Date Type Department Care Team (Late st Contact Info) Description 04/18/2012 Orders Only [facility] ProviderLashanda MD [address] [place] [address] Social History Tobacco Use Types Packs/Day Years Used Date Smoking Tobacco: Never Assessed Comments Unknown Sex and Gender Information Value Date Recorded Sex Assigned at Not on file Legal Sex Female 2:31 AM CHARGE MASTER COORDINATOR Gender Identity Not on file Sexual Orientation Not on file documented as of this encounter Plan of Treatment Not on file documented as of this encounter Procedures Procedure Name Priority Date/Time Associated Diagnosis Comments CARDIOLOGY REPORT 04/18/2012 documented in this encounter Results * CARDIOLOGY REPORT (04/18/2012) Anatomical Region Laterality Modality Other Narrative 04/18/2012 Ordered by an unspecified provider. Historical Provider [facility] CARDIAC SERVICES PREM LIN Final Result documented in this encounter Visit Diagnoses Not on filedocumented in this encounter Care Teams Clinical Abstractor Relationship Specialty Start Date End Date Haim Dee MD PCP - General 05/21/16 documented as of this encounter
--- OUTSIDE RECORDS SUMMARY | 2025-02-17 03:48 | XMS_ITS | Encounter Summary ---
Author Organization [facility] Address [address] [place] [address] Phone Care Team Providers Care Windows Desktop Support Name Role Phone Haim Dee MD Primary Care Provider Encounter Details Date Type Department Care Team (Late st Contact Info) Description 05/28/2013 Orders Only [facility] Provider, MD Lashanda [address] [place] [address] Social History Tobacco Use Types Packs/Day Years Used Date Smoking Tobacco: Never Assessed Comments Unknown Sex and Gender Information Value Date Recorded Sex Assigned at Not on file Legal Sex Female 2:31 AM EQUIPMENT MONITOR PHOTOTYPESETTING Gender Identity Not on file Sexual Orientation Not on file documented as of this encounter Plan of Treatment Not on file documented as of this encounter Procedures Procedure Name Priority Date/Time Associated Diagnosis Comments CARDIOLOGY REPORT 05/28/2013 documented in this encounter Results * CARDIOLOGY REPORT (05/28/2013) Anatomical Region Laterality Modality Other Narrative 05/28/2013 Ordered by an unspecified provider. Historical Provider [facility] C[facility]IAC SERVICES PREM LIN Final Result documented in this encounter Visit Diagnoses Not on filedocumented in this encounter Care Teams Windows Desktop Support Relationship Specialty Start Date End Date Haim Dee MD PCP - General 05/21/16 documented as of this encounter
--- OUTSIDE RECORDS SUMMARY | 2025-02-17 03:48 | XMS_ITS | Continuity of Care Document ---
Author Organization [place] - [facility], [facility] Internal Med [facility] 24 Address [address] [facility] 24 [place] [address] Assessment No assessment recorded. Plan of Treatment Reminders Order Date Submit Date Provider Last Modified By Organization Details Last Modified Time Details Appointments None recorded. Lab vitamin D, 25-hydroxy , total, serum 2024 [email or web address] [facility], [address] [place], [address], 08:53:37 CBC w/ auto diff 2024 [facility], [address] [place], [address], 15:04:43 CMP, serum or plasma 2024 [facility], [address] [place], [address], 15:06:18 lipid panel, serum 2024 [facility], [address] [place], [address], 15:06:20 TSH, serum or plasma 2024 [facility], [address] [place], [address], 16:42:21 T4, free, serum 2024 [facility], [address] [place], [address], 16:42:11 Referral None recorded. Procedures None recorded. Surgeries None recorded. Imaging None recorded. Medication Orders lorazepam 0.5 mg tablet 2024 025 [id number], [address], [place], [place], [id number], 12:48:48 Patient TargetsNo targets recorded. Patient Instructions Encounter Date Encounter Id Patient Instructions Last Modified By Organization Details Last Modified Time 12/30/2024 [id number] Medicare wellnes s evaluation risk assessment stable. [...] Created: Haim Dee M.D. 12.30.2024 11:48 AM [email or web address] Not available 12/30/2024 12:48:50 Reason for Referral None Reported. Results Created Date Observation Date Name Description Value Unit Range Abnormal Flag Note LastModifiedBy Organization Detail LastModifiedTime 12/31/1912/30/2024 CBC/C OMPLE TE BLD COUNT W/DIF F white blood cells 5.8 x10'3 /uL 4.2-10 .8 Not Available [facility] (Lab) [address] [place], [address], 12/30/2024 15:04:43 12/31/1912/30/2024 CBC/C OMPLE TE BLD COUNT W/DIF F red blood cells 3.66 x10'6 /uL 4.10-5 .80 low Not Available [facility] (Lab) [address] [place], [address], 12/30/2024 15:04:43 12/31/1912/30/2024 CBC/C OMPLE TE BLD COUNT W/DIF F hemoglobin 11.3 g/dL 13.2-1 7.0 low Not Available [facility] (Lab) [address] [place], [address], 12/30/2024 15:04:43 12/31/1912/30/2024 CBC/C OMPLE TE BLD COUNT W/DIF F hematocrit 36.2 % 39.3-5 0.0 low Not Available [facility] (Lab) [address] [place], [address], 12/30/2024 15:04:43 12/31/1912/30/2024 CBC/C OMPLE TE BLD COUNT W/DIF F mean red cell volume 98.9 fL 80.0-9 7.0 high Not Available [facility] (Lab) [address] [place], [address], 12/30/2024 15:04:43 12/31/1912/30/2024 CBC/C OMPLE TE BLD COUNT W/DIF F mean red cell hemoglobin 30.9 pg 27.0-3 3.0 Not Available [facility] (Lab) [address] [place], [address], 12/30/2024 15:04:43 12/31/1912/30/2024 CBC/C OMPLE TE BLD COUNT W/DIF F mean RBC HGB concentratio n 31.2 g/dL 31.0-3 6.0 Not Available [facility] (Lab) [address] [place], [address], 12/30/2024 15:04:43 12/31/1912/30/2024 CBC/C OMPLE TE BLD COUNT W/DIF F red cell distribution width 15.7 % 11.8-1 5.5 high Not Available [facility] (Lab) [address] [place], [address], 12/30/2024 15:04:43 12/31/1912/30/2024 CBC/C OMPLE TE BLD COUNT W/DIF F platelets 156 x10'3 /uL 150-40 0 Not Available [facility] (Lab) [address] [place], [address], 12/30/2024 15:04:43 12/31/1912/30/2024 CBC/C OMPLE TE BLD COUNT W/DIF F mean platelet volume 11.5 fL 9.0-12 .4 Not Available [facility] (Lab) [address] [place], [address], 12/30/2024 15:04:43 12/31/1912/30/2024 CBC/C OMPLE TE BLD COUNT W/DIF F neutrophils 72.4 % 39.0-7 2.0 high Not Available [facility] (Lab) [address] [place], [address], 12/30/2024 15:04:43 12/31/19 25 12/30/2024 CBC/C OMPLE TE BLD COUNT W/DIF F lymphocytes 11.6 % 16.0-4 7.0 low Not Available [facility] (Lab) [address] [place], [address], 12/30/2024 15:04:43 12/31/1912/30/2024 CBC/C OMPLE TE BLD COUNT W/DIF F monocytes 9.9 % 5.0-12 .0 Not Available [facility] (Lab) [address] [place], [address], 12/30/2024 15:04:43 12/31/1912/30/2024 CBC/C OMPLE TE BLD COUNT W/DIF F eosinophils 4.1 % 1.0-7. 0 Not Available [facility] (Lab) [address] [place], [address], 12/30/2024 15:04:43 12/31/1912/30/2024 CBC/C OMPLE TE BLD COUNT W/DIF F basophils 1.5 % 0.0-2. 0 Not Available [facility] (Lab) [address] [place], [address], 12/30/2024 15:04:43 12/31/1912/30/2024 CBC/C OMPLE TE BLD COUNT W/DIF F immature granulocytes 0.5 % 0.00-0 .50 Not Available [facility] (Lab) [address] [place], [address], 12/30/2024 15:04:43 12/31/1912/30/2024 CBC/C OMPLE TE BLD COUNT W/DIF F neutrophils, absolute count 4.22 x10'3 /uL 1.5-8. 0 Not Available [facility] (Lab) [address] [place], [address], 12/30/2024 15:04:43 12/31/19 25 12/30/2024 CBC/C OMPLE TE BLD COUNT W/DIF F lymphocytes, absolute count 0.68 x10'3 /uL 1.07-3 .43 low Not Available [facility] (Lab) [address] [place], [address], 12/30/2024 15:04:43 12/31/1912/30/2024 CBC/C OMPLE TE BLD COUNT W/DIF F monocytes, absolute count 0.58 x10'3 /uL 0.29-0 .99 Not Available [facility] (Lab) [address] [place], [address], 12/30/2024 15:04:43 12/31/1912/30/2024 CBC/C OMPLE TE BLD COUNT W/DIF F eosinophils, absolute count 0.24 x10'3 /uL 0.02-0 .53 Not Available [facility] (Lab) [address] [place], [address], 12/30/2024 15:04:43 12/31/1912/30/2024 CBC/C OMPLE TE BLD COUNT W/DIF F basophils, absolute count 0.09 x10'3 /uL 0.01-0 .08 high Not Available [facility] (Lab) [address] [place], [address], 12/30/2024 15:04:43 12/31/1912/30/2024 CBC/C OMPLE TE BLD COUNT W/DIF F immature granulocytes ,absolute 0.03 x10'3 /uL 0.00-0 .05 Not Available [facility] (Lab) [address] [place], [address], 12/30/2024 15:04:43 12/31/1912/30/2024 CBC/C OMPLE TE BLD COUNT W/DIF F nucleated red blood cells 0.0 % -0 Not Available [facility] (Lab) [address] [place], [address], 12/30/2024 15:04:43 12/31/1912/30/2024 CBC/C OMPLE TE BLD COUNT W/DIF F NRBC# 0.00 x10'3 /uL Not Available [facility] (Lab) [address] [place], [address], 12/30/2024 15:04:43 12/31/19 25 12/30/2024 COMPR EHENS ALEJANDRA METAB OLIC PANEL sodium 141 mmol/ L 137-14 5 Not Available [facility] (Lab) [address] [place], [address], 12/30/2024 15:06:18 12/31/1912/30/2024 COMPR EHENS ALEJANDRA METAB OLIC PANEL potassium 4.9 mmol/ L 3.5-5. 1 Not Available [facility] (Lab) [address] [place], [address], 12/30/2024 15:06:18 12/31/19 25 12/30/2024 COMPR EHENS ALEJANDRA METAB OLIC PANEL chloride 109 mmol/ L 98-107 high Not Available [facility] (Lab) [address] [place], [address], 12/30/2024 15:06:18 12/31/19 25 12/30/2024 COMPR EHENS ALEJANDRA METAB OLIC PANEL carbon dioxide 24 mmol/ L 22-30 Not Available [facility] (Lab) [address] [place], [address], 12/30/2024 15:06:18 12/31/19 25 12/30/2024 COMPR EHENS ALEJANDRA METAB OLIC PANEL anion gap 12.9 mmol/ L 14-22 low Not Available [facility] (Lab) [address] [place], [address], 12/30/2024 15:06:18 12/31/19 25 12/30/2024 COMPR EHENS ALEJANDRA METAB OLIC PANEL glucose 101 mg/dL 70-99 high Not Available [facility] (Lab) [address] [place], [address], 12/30/2024 15:06:18 12/31/19 25 12/30/2024 COMPR EHENS ALEJANDRA METAB OLIC PANEL BUN 40 mg/dL 8-19 high Not Available [facility] (Lab) [address] [place], [address], 12/30/2024 15:06:18 12/31/19 25 12/30/2024 COMPR EHENS ALEJANDRA METAB OLIC PANEL creatinine 1.35 mg/dL 0.66-1 .25 high Not Available [facility] (Lab) [address] [facility] [place], [address], 12/30/2024 15:06:18 12/31/1912/30/2024 COMPR EHENS ALEJANDRA METAB OLIC PANEL GFR 38 Refer ence Range : [place] ge GFR Healt hy Adult : >60 [...] or ethni c subgr oups, such as [facility] nics. Outsi de the valid ated christian [...] calcu lator is avail able on the [facility] websi te: [email or web address] :[email or web address] ional [email or web address] qi/gf r_cal culat or Not Available [facility] (Lab) [address] [place], [address], 12/30/2024 15:06:18 12/31/19 25 12/30/2024 COMPR EHENS ALEJANDRA METAB OLIC PANEL alkaline phosphatase 109 U/L 38-126 Not Available [facility] (Lab) [address] [place], [address], 12/30/2024 15:06:18 12/31/19 25 12/30/2024 COMPR EHENS ALEJANDRA METAB OLIC PANEL alanine aminotransfe rase 13 U/L 0-35 Not Available [facility] (Lab) [address] [place], [address], 12/30/2024 15:06:18 12/31/19 25 12/30/2024 COMPR EHENS ALEJANDRA METAB OLIC PANEL aspartate aminotransfe rase 21 U/L 15-37 Not Available [facility] (Lab) [address] [place], [address], 12/30/2024 15:06:18 12/31/19 25 12/30/2024 COMPR EHENS ALEJANDRA METAB OLIC PANEL bilirubin, total 0.50 mg/dL 0.20-1 .30 Not Available [facility] (Lab) [address] [place], [address], 12/30/2024 15:06:18 12/31/19 25 12/30/2024 COMPR EHENS ALEJANDRA METAB OLIC PANEL calcium 9.4 mg/dL 8.4-10 .2 Not Available [facility] (Lab) [address] [place], [address], 12/30/2024 15:06:18 12/31/19 25 12/30/2024 COMPR EHENS ALEJANDRA METAB OLIC PANEL total protein 7.6 g/dL 6.3-8. 2 Not Available [facility] (Lab) [address] [place], [address], 12/30/2024 15:06:18 12/31/1912/30/2024 COMPR EHENS ALEJANDRA METAB OLIC PANEL albumin 4.1 g/dL 3.0-4. 4 Not Available [facility] (Lab) [address] [place], [address], 12/30/2024 15:06:18 12/31/19 25 12/30/2024 COMPR EHENS ALEJANDRA METAB OLIC PANEL globulin 3.5 g/dL 2.6-4. 2 Not Available [facility] (Lab) [address] [place], [address], 12/30/2024 15:06:18 12/31/1912/30/2024 COMPR EHENS ALEJANDRA METAB OLIC PANEL A/G ratio 1.2 ratio 1.0-2. 0 Not Available [facility] (Lab) [address] [place], [address], 12/30/2024 15:06:18 12/31/1912/30/2024 LIPID PANEL cholesterol 179 mg/dL 140-19 9 NIH MARTA NSUS RECOM MENDA TION FOR TONY STERO L: ADULT CHILD LOW RISK: <200 <170 BORDE RLINE : <200- 239 ----- HIGH RISK: >240 >200 Not Available [facility] (Lab) [address] [place], [address], 12/30/2024 15:06:20 12/31/1912/30/2024 LIPID PANEL triglyceride s 149 mg/dL 0-150 NIH MARTA NSUS REPOR T RECOM MENDA TION FOR TRIGL YCERI JAZ: ADULT CHILD LOW RISK: <150 ----- BODER LINE: 150-1 99 ----- HIGH RISK: >200 ----- Not Available [facility] (Lab) [address] [place], [address], 12/30/2024 15:06:20 12/31/19 25 12/30/2024 LIPID PANEL HDL cholesterol 49 mg/dL 40- Not Available [facility] (Lab) [address] [place], [address], 12/30/2024 15:06:20 12/31/19 25 12/30/2024 LIPID PANEL LDL cholesterol, calculated 100 mg/dL [...] WILL NOT BE REPOR PERLITA. Not Available [facility] (Lab) [address] [place], [address], 12/30/2024 15:06:20 12/31/1912/30/2024 VITAM IN D 25-HY DROXY [id number] 22.5 NG/mL 30-100 low Vitam in D Statu s: Defic ient: <20 ng/mL Insuf ficie nt: 20-29 ng/mL Suffi cient : 30-10 0 ng/mL Not Available [facility] (Lab) [address] [place], [address], 12/30/2024 16:21:28 12/31/1912/30/2024 T4 FREE free T4 1.24 NG/dL 0.78-2 .19 Not Available [facility] (Lab) [address] [place], [address], 12/30/2024 16:42:11 12/31/1912/30/2024 TSH thyroid-stim ulating hormone 2.340 uIU/m L 0.465- 4.680 Not Available [facility] (Lab) [address] [place], [address], 12/30/2024 16:42:21 Result Notes None recorded. Problems Name Problem SNOMED Code Status Onset Date Resolution Date Notes Provider Name and Address Organization Details Recorded Time Tobacco user 784261827 Active Not Available [facility] 3 15:35:31 Diverticul itis of colon 642896561 Active Not Available [facility] 3 15:35:31 Serum creatinine outside reference range 062161186 Active Not Available [facility] 3 15:35:31 Lumbar sprain 992269030 Active Not Available [facility] 3 15:35:31 Gastroesop hageal reflux disease 857445302 Active Not Available [facility] 3 15:35:31 Pain of joint of ankle and/or foot 560676389 Active Not Available [facility] 3 15:35:31 Restless legs syndrome 40732592 Active Not Available [facility] 3 15:35:31 Osteoarthr itis 227755402 Active Not Available [facility] 3 15:35:32 Diverticul ar disease of colon 515588049 Active Not Available [facility] 3 15:35:32 Obesity 773281882 Active Not Available [facility] 3 15:35:32 Atrial fibrillati on 25115123 Active Not Available [facility] 3 15:35:32 Essential hypertensi on 46807088 Active Not Available [facility] 3 15:35:32 Hidradenit is 77486760 Active Not Available [facility] 3 15:35:32 Sleep apnea 52117556 Active Not Available [facility] 3 15:35:32 Primary cardiomyop athy 65830715 Active Not Available [facility] 3 15:35:32 Osteoarthr itis of knee 080690041 Active 2017 Not Available [facility] 3 15:35:31 Excess skin of eyelid 066762415 Active 2017 Not Available [facility] 3 15:35:31 Depressive disorder 11498752 Active 2018 Not Available [facility] 3 15:35:31 Congestive heart failure 74076170 Active 2020 Not Available [facility] 3 15:35:32 Senile osteoporos is 58063159 Active 2021 Not Available [facility] 3 15:35:31 Screening mammograph y Active 2021 Not Available [facility] 3 15:35:31 Adult health examinatio n Active 2021 Not Available [facility] 3 15:35:31 Screening for disorder Active 2021 Not Available [facility] 3 15:35:31 COVID-19 719291955 Active 2021 Not Available [facility] 3 15:35:32 Wheezing 70767350 Active 2021 Not Available [facility] 3 15:35:32 Iron deficiency anemia 74043088 Active 2021 Not Available [facility] 3 15:35:32 Influenza 4681654 Active 2021 Not Available [facility] 3 15:35:32 Chronic kidney disease stage 3B 994192566 Active 2022 Not Available [facility] 3 15:35:32 Essential tremor 411005133 Active 2022 Not Available [facility] 3 15:35:32 Vitamin D deficiency 75366614 Active 2022 Haim Dee MD [address], [place], [address] , [employer] 5 12:47:42 Pain of left ankle joint 4794700847770 9103 Active 2022 Not Available [facility] 3 15:35:31 Cellulitis of lower limb 466204596 Active 2022 Not Available [facility] 3 15:35:32 Acute sinusitis 56000336 Active 2022 Haim Dee MD [address], [place], [address] , [employer] 3 12:27:13 Upper respirator y infection 86413455 Active 2022 Haim Dee MD [address], [place], [address] , [facility] 3 15:35:24 Acute bronchitis 58539906 Active 2022 Haim Dee MD [address], [place], [address] , [facility] 3 12:32:41 Cough 78237692 Active 2022 Sabi Beltran null, [place] [facility] 3 12:36:52 Osteoporos is 86012201 Active 2022 KEZIA Rowland, [place] [facility] 3 14:44:31 Candidiasi s of vagina 10434121 Active 2022 Haim Dee MD [address], [place], [address] , [facility] 3 16:43:56 Obese class III 817979635 Active 2023 Haim Dee MD [address], [place], [address] , [facility] 4 15:00:22 Thyroid function tests abnormal 192871389 Active 2023 KEZIA Rowland, [place] [facility] 4 12:34:34 Nausea and vomiting 73553752 Active 2024 Haim Dee MD [address], [place], [address] , [facility] 5 10:22:45 Chronic renal failure 98498449 Active 2024 KEZIA [place], [place] [facility] 5 14:27:54 Anemia 890568801 Active 2024 KEZIA [place], [place] [facility] 5 14:28:00 Dental abscess 314059969 Active 2024 Haim Dee MD [address], [place], [address] , [facility] 17:33:24 Anxiety 90083454 Active 2024 Haim Dee MD [address], [place], [address] , [facility] 5 12:47:58 Gastroesop hageal reflux disease without esophagiti s 540320059 Active 2024 Sabi lu, [facility] 14:01:37 Pharyngiti s 901034327 Active 2024 Haim Dee MD [address], [place], [address] , [facility] 5 16:22:05 Bilateral acute conjunctiv itis Active 2024 Haim Dee MD [address], [place], [address] , [facility] [employer] [facility] 14:59:54 Problem Notes None recorded. Procedures Surgical History Date Name Laterality Status Provider Name and Address Organization Details Recorded Time 12/10/19 Medicare Wellness CPT Code, subsequent completed Demetria Mosley RN [facility] [employer] [facility] 12/10/2023 15:34:23 12/05/19 23 Medicare Wellness CPT Code, subsequent completed Noelle Lees [facility] [employer] [facility] 12/04/2022 14:46:10 Eye completed Not Available [facility] 05/02/2022 06:42:10 cholelithotomy completed Not Available [facility] 05/02/2022 06:42:10 Defibrillator completed Not Available [facility] 05/02/2022 06:42:10 Imaging Results None recorded. Procedure Notes None recorded. Medical Equipment None Reported. Allergies Allergen ID Allergen Name Allergen Category Reaction Reaction Severity Criticality Documentation Date Start Date Code Code System Note Provider Name and Address Organization Details Recorded Time 33334 latex environme nt,medica tion Not available Not available Not available 05/02/2022 51188 91 RxNorm blist er Not Available [facility] 3 06:49:33 Medications Name Sig Start Date [...] Updated DateTime 5 163.83 cm 45 kg/m2 753184. 57 g 70 /min 97.2 [degF] 95 % 128/64 mm[Hg] Noelle Cortez [place] [employer] [facility] 12:29:38 Social History Question Answer Notes LastModified by Organizat ion Details LastModified Time Tobacco Smoking Status Never Smoker Not Available [facility] 05/02/2022 06:41:50 Do You Have An Advance Directive? Yes MIGRATION.05119 01727 Information not available 05/02/2022 Are You Blind Or Do You Have Difficulty Seeing? No MIGRATION.75750 94475 Information not available 05/02/2022 Are You Deaf Or Do You Have Serious Difficulty Hearing? No MIGRATION.97851 79374 Information not available 05/02/2022 What Type Of Diet Are You Following? REGULAR [email or web address] Information not available 12/10/2023 Have There Been Any Changes To Your Family Or Social Situation? No MIGRATION.13075 84048 Information not available 05/02/2022 What Is The Fluoride Status Of Your Home? Unknown MIGRATION.39923 59341 Information not available 05/02/2022 Are There Any Guns Present In Your Home? No MIGRATION.22552 44179 Information not available 05/02/2022 Do You Use Insect Repellent Routinely? No MIGRATION.64019 71071 Information not available 05/02/2022 Where [facility] You [facility]? [facility] MIGRATION.81180 66528 Information not available 05/02/2022 Guns Present In The Home? No [email or web address] Information not available 12/10/2023 Are You Able To Care For Yourself? Yes [email or web address] Information not available 12/10/2023 Are You Blind Or Do Yo Have Difficulty Seeing? No [email or web address] Information not available 12/10/2023 Are You Deaf Or Do You Have Serious Difficulty Hearing? No [email or web address] Information not available 12/10/2023 Live Alone Of With Others? With Others [email or web address] Information not available 12/10/2023 What Was The Date Of Your Most Recent Tobacco Screening? 12/10/2023 [email or web address] Information not available 12/10/2023 Do You Have Any Pets? Yes [email or web address] Information not available 12/10/2023 What Is Your Relationship Status? MIGRATION.34615 52156 Information not available 05/02/2022 Do You Use Your Seat Belt Or Car Seat Routinely? Yes MIGRATION.30409 40609 Information not available 05/02/2022 Do You Have Smoke And Carbon Monoxide Detectors In Your Home? Yes MIGRATION.46939 70208 Information not available 05/02/2022 Are You Passively Exposed To Smoke? No MIGRATION.78979 12450 Information not available 05/02/2022 Are There Any Smokers In Your House? No [email or web address] Information not available 12/10/2023 Do You Use Sunscreen Routinely? No MIGRATION.00378 13722 Information not available 05/02/2022 Have You Recently Traveled Abroad? No MIGRATION.38680 95913 Information not available 05/02/2022 Do You Have Difficulty Walking Or Climbing Stairs? Yes Uses Walker [email or web address] Information not available 12/10/2023 Sex: Unknown Functional Status Question Answer Note LastModified by Organizat [employer] Details LastModified Time What is your level of alcohol consumption? None [email or web address] Information not available 12/10/2023 Are you able to walk independently without assistance or assistive devices? YESASSIST uses a walker sometimes MIGRATION.45888 59525 Information not available 05/02/2022 Do you have difficulty doing errands alone? Yes MIGRATION.28556 29832 Information not available 05/02/2022 Are you able to care for yourself independently? Yes MIGRATION.25564 19729 Information not available 05/02/2022 Do you have difficulty dressing, bathing, grooming, or toileting? No MIGRATION.46891 74210 Information not available 05/02/2022 Do you or have you ever used e-cigarettes or vape? Current user of electronic cigarettes MIGRATION.26292 39863 Information not available 05/02/2022 What is your exercise level? None MIGRATION.93648 64908 Information not available 05/02/2022 Mental Status Question Answer Note LastModified by Organizat [employer] Details LastModified Time Do you have difficulty concentrating, remembering or making decisions? No MIGRATION.[id number] Information not available 05/02/2022 Family History Relationship Description Onset Age of this Age Resolved Age Notes LastModified by Organization Details LastModified Time Father Heart disease [id number].095 [id number] Not available 05/02/2022 06:42:11 Father Hypertensive disorder MIGRATION.577 [id number] Not available 05/02/2022 06:42:11 Notes:Mother 82 yea [...] HAVE YOU BEEN HOSPITALIZED OR SEEN IN [facility] IN THE PAST YEAR ? N ATHEROSCLEROSIS [...] Time zoster live 5 completed Not Available [facility] 12/30/2024 12:22:33 Influenza, high-dose, trivalent, PF 5 completed Not Available [facility] 12/30/2024 12:22:33 Influenza, high-dose, trivalent, PF 8 completed Not Available [facility] 12/30/2024 12:22:33 Influenza, adjuvanted, trivalent, PF 9 completed Not Available [facility] 12/30/2024 12:22:33 Tdap 9 completed [facility] Available [facility] 12/30/2024 12:22:33 influenza, unspecified formulation 0 completed Not Available [facility] 12/30/2024 12:22:33 COVID-19, mRNA, LNP-S, PF, 30 mcg/0.3 mL dose 2 completed Not Available [facility] 12/30/2024 12:22:33 COVID-19, mRNA, LNP-S, PF, 50 mcg/0.5 mL 3 completed Not Available [facility] 12/30/2024 12:22:33 Influenza, high-dose, quadrivalent, PF 3 completed Haim Dee MD [address] [place] [address], [place] [address], [place], [address], [facility] [employer] 12/04/2022 14:57:13 Influenza, high-dose, trivalent, PF 6 completed Not Available [facility] 10/23/2022 15:35:32 Pneumococcal conjugate PCV 13 4 completed Not Available [facility] 10/23/2022 15:35:32 SARS-COV-2 (COVID-19) vaccine, UNSPECIFIED 2 completed Not Available [facility] 10/23/2022 15:35:32 SARS-COV-2 (COVID-19) vaccine, UNSPECIFIED 1 completed Not Available [facility] 10/23/2022 15:35:32 Influenza, split virus, trivalent, preservative 3 completed Not Available [facility] 10/23/2022 15:35:32 Influenza, high-dose, trivalent, PF 2 completed Not Available [facility] 10/23/2022 15:35:32 SARS-COV-2 (COVID-19) vaccine, UNSPECIFIED 1 completed Not Available [facility] 10/23/2022 15:35:32 SARS-COV-2 (COVID-19) vaccine, UNSPECIFIED 1 completed Not Available [facility] 10/23/2022 15:35:32 Influenza, high-dose, quadrivalent, PF 1 completed Not Available [facility] 10/23/2022 15:35:32 Influenza, high-dose, trivalent, PF 4 completed Not Available [facility] 10/23/2022 15:35:32 Influenza, high-dose, trivalent, PF 4 completed Haim Dee MD [address] [facility], [facility] [address], [place], [address], [facility] [employer] [facility] [employer] 12/10/2023 16:02:31 Pneumococcal conjugate PCV20, polysaccharide WLC050 conjugate, adjuvant, PF 4 completed Noelle lu [email or web address] [facility] [employer] 12/20/2023 14:15:02 Past Encounters Encounter ID Performer Location Encounter Start Date Encounter Closed Date Diagnosis/Indication Diagnosis SNOMED-CT Code Diagnosis ICD10 Code Diagnosis IMO Codes Diagnosis Note [id number] Haim Dee MD [facility] Internal Med [facility] [address] [facility], [facility] [address] [place] [address] 12/30/2024 12:21:34 12/30/2024 12:54:55 General examination of patient 810292853 Z00.00 1813120 Primary cardiomyopathy 50931536 I42.9 Essential hypertension 83114861 I10 Atrial fibrillation 4943 6004 I48.91 Gastroesop hageal reflux disease 233399287 K21.9 Diverticul itis of colon 674279520 K57.32 Obese class III 11069479 5 E66.01 Vitamin D deficiency 347 38046 E55.9 79713 Anxiety 46870845 F41.9 03896 Health Concerns Section Related Observation LastModified by Organization Detai ls LastModified Time None Recorded Concern Status LastModified by Organization Details LastModified Time None Recorded Payers Encounter Date Sequence Insurance Name Policy Number Policy Benavidez Covered Member ID Benavidez Member ID Guarantor Name 12/30/2024 1 [employer] (MEDICARE REPLACEMENT/ ADVANTAGE - PPO) [id number] Lakshmi Pugh [id number] Lakshmi Pugh Notes Date Note Type Note Provider Name and Address Organization Details Recorded Time 5 text/html Patient Name: Lakshmi Louis HennesseyDate Of Service: Saturday ( 12.30.2024 ): 1950 [...] and Coreg. Rate control: controlled ventricular response [id number] Criteria: Eliquis for embolic phenomenon. Anticoagulation: none [...] use of H2 antagonists Class 3 Obesity IA > 40. #5. Hx of obesity. Currently no. Has tried numerous dietary support and supplements with no benefit. Instructed on the health consequences of the obese status particularly cancer - diabetes and heart disease. Discussed other modalities of weight loss No . Potential candidate for bariatric surgery: No and was offered to be evaluated and instructed by tube carrier on weight loss diet. Wishes to be evaluated by Dietary: No and was offered to be evaluated and instructed by tube carrier on weight loss diet. Wellness Evaluation __ [...] the Office. Else referred to pharmacies. Surgical Vjxbkgt0718-49 AFIB Tupqepan9612-25 AFIB Ljulelzr6240-39 Slqyuglbqzfor6087-00 Left UZA1374-37 Lap Cyqhvcxmtvjtwtq5495-87 Lt. Knee Surgery Preventative Testing: (X) Due (?) Optional( ) 06/16/2024 Optometry( ) 04/29/2024 Albumin 3.7 G/DL N( ) 04/29/2024 HAIC 5.8 % OF TOTAL HGB H( ) 12/11/2023 Ophthalmology(X) 12/05/2022 Mammogram 12/06/2023(X) 12/05/2022 DEXA Scan 12/05/2024(X) 11/02/2021 Upper Endoscopy 11/02/2022( ) 11/02/2021 Colonoscopy ( 10 Years ) 11/03/2031reventative Testing Discussed with Patient and Attendants Social Vcdkdyr42 pack years of smoking. Smoked two packs daily forapproximately 30 years. Quit July 2011. Does notdrink. Is a legal mediator. Family HistoryMother 82 years of age has [...] the Office. Else referred to pharmacies. Surgical Fwsdzaq9945-81 AFIB Zkvrwpvi4775-82 AFIB Hxctpoel3356-62 Bivbqarxsilsq3311-28 Left USI1797-64 Lap Rbrcjjgmotiysbp5590-52 Lt. Knee Surgery Preventative Testing: (X) Due (?) Optional( ) 06/16/2024 Optometry( ) 04/29/2024 Albumin 3.7 G/DL N( ) 04/29/2024 HAIC 5.8 % OF TOTAL HGB H( ) 12/11/2023 Ophthalmology(X) 12/05/2022 Mammogram 12/06/2023(X) 12/05/2022 DEXA Scan 12/05/2024(X) 11/02/2021 Upper Endoscopy 11/02/2022( ) 11/02/2021 Colonoscopy ( 10 Years ) 11/03/2031reventative Testing Discussed with Patient and Attendants Social Rpnmudl08 pack years of smoking. Smoked two packs daily forapproximately 30 years. Quit July 2011. Does notdrink. Is a legal mediator. Family HistoryMother 82 years of age has hx of cardiomegaly,tremorand glaucoma. CRFFather 80 y/o hx of HTN and COPD. HxAAANo brothers or sisters. Haim Dee MD [address] [facility], [facility] [address], [place], [address], [facility] [employer] [facility] 12/30/2024 12:49:12 OBGyn Episode No OBEpisode recorded.
--- OUTSIDE RECORDS SUMMARY | 2025-02-17 03:48 | XMS_ITS | Encounter Summary ---
Author Organization [facility] Address [address] [place] [address] Phone Care Team Providers Care Pneumatic Systems Operator Name Role Phone Haim Dee MD Primary Care Provider Encounter Details Date Type Department Care Team (Late st Contact Info) Description 04/16/2012 Orders Only [facility] Curt Duggan MD [address] 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 Gender Identity Not on file Sexual Orientation Not on file documented as of this encounter Plan of Treatment Not on file documented as of this encounter Procedures Procedure Name Priority Date/Time Associated Diagnosis Comments CARDIOLOGY REPORT 04/16/2012 documented in this encounter Results * CARDIOLOGY REPORT (04/16/2012) Anatomical Region Laterality Modality Other us Curt Duggan MD [facility] PRO CEDURES Final Result documented in this encounter Visit Diagnoses Not on filedocumented in this encounter Care Teams Pneumatic Systems Operator Relationship Specialty Start Date End Date Haim Dee MD PCP - General 05/21/16 documented as of this encounter
--- OUTSIDE RECORDS SUMMARY | 2025-02-17 03:48 | XMS_ITS | Encounter Summary ---
Author Organization [facility] Address [address] [place] [address] Phone Care Team Providers Care Tile Helper Name Role Phone Haim Dee MD Primary Care Provider Encounter Details Date Type Department Care Team (Late st Contact Info) Description 09/02/2014 Orders Only [facility] Provider, MD Lashanda [address] [place] [address] Social History Tobacco Use Types Packs/Day Years Used Date Smoking Tobacco: Never Assessed Comments Unknown Sex and Gender Information Value Date Recorded Sex Assigned at Not on file 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 Historical Provider [facility] PREM LIN Final Result documented in this encounter Visit Diagnoses Not on filedocumented in this encounter Care Teams Tile Helper Relationship Specialty Start Date End Date Haim Dee MD PCP - General 05/21/16 documented as of this encounter
[2025-02-17 13:21] VITALS: BP 145/79; PULSE 70; RESP 18; TEMP 36.6; O2SAT 100; BMI 42.3
[2025-02-17] MEDS: LACTATED RINGERS 1,000 ML 150 ML IV CONT (13:28)
[2025-02-17] MEDS: SIMETHICONE ORAL SUSPENSION 20 MG/0.3 ML 30 ML BOTTLE 1.8 ML PO (13:30)
--- NOTE | 2025-02-17 13:43 | WPDANESEPPF ---
Anes - Initial Pre Proc Eval Procedure: Operation Date: 02/17/25 14:00 Proposed Procedures p Esophagogastroduodenoscopy EGD - Junito Gold MD Date/Time: 02/17/25 13:43 Surgeon: Junito Gold MD Pre Op Diagnosis: GERD Patient Data Age: 74 Gender: F Height: 1.68 m Weight: 118.9 kg Last Vital Signs Temp 97.8 F 02/17/25 13:21 Pulse 70 02/17/25 13:21 Resp 18 02/17/25 13:21 BP 145/79 H 02/17/25 13:21 Pulse Ox 100 02/17/25 13:21 O2 Del Method Room Air 02/17/25 13:21 Allergies Allergy/AdvReac Type Severity Reaction Status Date / Time latex Allergy Blister Verified 02/17/25 13:19 Home Medications ?Medication ?Instructions ?Recorded ?Confirmed ?Type acetaminophen 500 mg tablet 500 mg PO Q4H PRN Pain 01/12/19 02/12/25 History (Tylenol Extra Strength) carvedilol 25 mg tablet 37.5 mg PO Q12H 01/12/19 02/17/25 History hydralazine 25 mg tablet 25 mg PO TID 01/12/19 02/12/25 History apixaban 5 mg tablet (Eliquis) 5 mg PO BID 03/29/21 02/17/25 History venlafaxine 75 mg tablet 75 mg PO DAILY 03/29/21 02/17/25 History amiodarone 200 mg tablet 200 mg PO DAILY 10/11/21 02/17/25 History pantoprazole 20 mg tablet,delayed 20 mg PO QAM 10/11/21 02/12/25 History release vit C 250 mg-vit E 90 mg-zinc 40 1 tablet PO BID 10/20/21 02/17/25 History mg-copper 1 gw-kdbszl-hiamvd capsule (PreserVision AREDS-2) bumetanide 2 mg tablet 2 mg PO DAILY 04/12/22 02/17/25 History calcitriol 0.25 mcg capsule 0.25 mcg PO 3XW 04/12/22 02/12/25 History temazepam 15 mg capsule 30 mg PO QHS PRN Insomnia 04/12/22 02/12/25 History PRE PRO BIOTIC 1 cap PO QHS 02/12/25 02/17/25 History Slow Rel Iron 65 mg PO DAILY 02/12/25 02/17/25 History alendronate 70 mg tablet 70 mg PO WEEKLY 02/12/25 02/17/25 History ergocalciferol (vitamin D2) 1,250 1,250 mcg PO WEEKLY 02/12/25 02/17/25 History mcg (50,000 unit) capsule esomeprazole magnesium 20 mg 20 mg PO DAILY 02/12/25 02/17/25 History capsule,delayed release (Nexium) lorazepam 0.5 mg tablet 0.5 mg PO Q8H PRN anxiety 02/12/25 02/12/25 History spironolactone 25 mg tablet 25 mg PO DAILY 02/12/25 02/17/25 History Patient hx anesthesia problems: none Family hx anesthesia problems: none Results Review: All pre-operative results and documents have been reviewed as part of the pre-operative evaluation. [facility] Past Medical History Medical History Hx of cataract Hypertension GERD (gastroesophageal reflux disease) CHF (congestive heart failure) Hx of diverticulitis of colon Hx of acute arthritis Surgical History Surgical History Hx laparoscopic cholecystectomy Hx of section Family History Family History Father Hypertension Social History Social History Social History: PT stop smoking 02/2012. Pt stated Vap at least once a day since 03/2018. Smoking packs per day: 2 Smoking cigarettes per day: 40.0 Years smoked: 30 Smoking pack-years: 60.00 Smoking status: Former smoker Tobacco type: e-cigarettes/vaping Additional smoking assessment comments: STOPPED NICOTINE FREE VAPE 2020 Alcohol intake: never Substance use: never Living arrangements: with family Spiritual care concerns: No Anes - Eval Final PreProcedure Day of Procedure 02/17/25 13:43 Patient weight: morbidly obese Lungs: normal air movement Airway: Mallampati scale class II Neurological: alert and oriented Last oral intake: >/= 8 hours ASA classification: III Emergent: no Anesthetic plan: proceed Anesthesia type and monitoring: general GIVS and standard monitoring Results Review: All pre-operative results and documents have been reviewed as part of the pre-operative evaluation. MARCOS on CPAP, hx afib, s/p CVV x 2, BMI 42, pt limited activity due to ortho issues. No cp or sob w walking short distances. Informed Consent: The patient's anesthetic plan and its attendant risks and benefits were discussed with the patient/family/POA. Questions were solicited and answers provided to the satisfaction of the patient/family/POA.
--- NOTE | 2025-02-17 14:17 | PM.IMHP2 ---
H&P: HPI History of Present Illness Date/Time: 02/17/25 14:17 Chief Complaint: GERD Narrative: The patient has a longstanding history of GERD, her last EGD was in 2021 finding a hiatal hernia. Despite taking 40 mg once a day, she still complains of postprandial nausea and sometimes vomiting. There is no dysphagia or unintentional weight loss. She is referred for EGD. Review of Systems Review of Systems: All systems reviewed & are unremarkable except as noted in HPI and below PMFSH Past Medical History Medical History (Updated 02/17/25 @ 14:18 by Junito Gold MD) Hx of cataract Hypertension GERD (gastroesophageal reflux disease) CHF (congestive heart failure) Hx of diverticulitis of colon Hx of acute arthritis Surgical History Surgical History Hx laparoscopic cholecystectomy Hx of section Family History Family History Father Hypertension Social History Social History Social History: PT stop smoking 02/2012. Pt stated Vap at least once a day since 03/2018. Smoking packs per day: 2 Smoking cigarettes per day: 40.0 Years smoked: 30 Smoking pack-years: 60.00 Smoking status: Former smoker Tobacco type: e-cigarettes/vaping Additional smoking assessment comments: STOPPED NICOTINE FREE VAPE 2020 Alcohol intake: never Substance use: never Living arrangements: with family Spiritual care concerns: No Meds Home Medications and Allergies Home Medications ?Medication ?Instructions ?Recorded ?Confirmed ?Type acetaminophen 500 mg tablet 500 mg PO Q4H PRN Pain 01/12/19 02/12/25 History (Tylenol Extra Strength) carvedilol 25 mg tablet 37.5 mg PO Q12H 01/12/19 02/17/25 History hydralazine 25 mg tablet 25 mg PO TID 01/12/19 02/12/25 History apixaban 5 mg tablet (Eliquis) 5 mg PO BID 03/29/21 02/17/25 History venlafaxine 75 mg tablet 75 mg PO DAILY 03/29/21 02/17/25 History amiodarone 200 mg tablet 200 mg PO DAILY 10/11/21 02/17/25 History pantoprazole 20 mg tablet,delayed 20 mg PO QAM 10/11/21 02/12/25 History release vit C 250 mg-vit E 90 mg-zinc 40 1 tablet PO BID 10/20/21 02/17/25 History mg-copper 1 ub-[place]-nsnxrq capsule (PreserVision AREDS-2) bumetanide 2 mg tablet 2 mg PO DAILY 04/12/22 02/17/25 History calcitriol 0.25 mcg capsule 0.25 mcg PO 3XW 04/12/22 02/12/25 History temazepam 15 mg capsule 30 mg PO QHS PRN Insomnia 04/12/22 02/12/25 History PRE PRO BIOTIC 1 cap PO QHS 02/12/25 02/17/25 History Slow Rel Iron 65 mg PO DAILY 02/12/25 02/17/25 History alendronate 70 mg tablet 70 mg PO WEEKLY 02/12/25 02/17/25 History ergocalciferol (vitamin D2) 1,250 1,250 mcg PO WEEKLY 02/12/25 02/17/25 History mcg (50,000 unit) capsule esomeprazole magnesium 20 mg 20 mg PO DAILY 02/12/25 02/17/25 History capsule,delayed release (Nexium) lorazepam 0.5 mg tablet 0.5 mg PO Q8H PRN anxiety 02/12/25 02/12/25 History spironolactone 25 mg tablet 25 mg PO DAILY 02/12/25 02/17/25 History Allergies Allergy/AdvReac Type Severity Reaction Status Date / Time latex Allergy Blister Verified 02/17/25 13:19 Vital Signs Vital Signs - 24 hr 02/17/25 13:21 Temperature 97.8 F Pulse Rate 70 Respiratory Rate 18 Blood Pressure 145/79 H Pulse Oximetry 100 Oxygen Delivery Room Air Exam Const: General: cooperative and healthy appearing Resp: Effort & Inspection: normal respiratory effort and able to speak in complete sentences Auscultation: clear to auscultation bilaterally Cardio: Rate: regular rate Rhythm: regular rhythm GI: Inspection: normal to inspection GI Palp: No No hepatosplenomegaly present Auscultation: normal bowel sounds Rectal Exam: deferred Skin: General skin exam: normal color Psych: Appearance: grossly normal Mental Status: mental status grossly normal Assessment and Plan Assessment and plan (1) GERD (gastroesophageal reflux disease): Code(s): K21.9 - Gastro-esophageal reflux disease without esophagitis Status: Acute Assessment and Plan: The patient is deemed a good candidate for the procedure. Consent signed. Will proceed. Prior Studies I have reviewed the following patient records and this information was taken into consideration when formulating the assessment and plan.: previous labs, previous ER visits, previous hospitalizations and previous clinic visits
[2025-02-17] MEDS: BENZOCAINE (*SP) 60 ML SPRAY CAN (HURRICAINE) 1 SPRAY MUCOUS MEM (14:24)
[2025-02-17 14:31] VITALS: BP 111/64; PULSE 70; RESP 24; O2SAT 96
--- NOTE | 2025-02-17 14:33 | S_PTH ---
PATIENT: Lakshmi Pugh LOC: [facility] Bal[facility]ama#:[id number] AGE/SX: 74/F ROOM: RE02/17/[address]: Junito Gold MD : 1950 BED: DIS: 02/17/2025 SPEC #: [id number] RECD: 02/17/25 14:59 STATUS: DIAMOND REQ #: [id number] LIZ: 02/17/25 14:[address]: Junito Gold DEPT: [facility] Surgical RECD BY: Bhakti Torres ENTERED: 02/17/25 15:00 SP TYPE: Surgical OTHR DR: Haim Dee, Tissues: A - Gastric Biopsy B - Gastric Biopsy Procedures: Hematoxylin and Eosin Stain Gross and Microscopic Level 4
[2025-02-17 14:41] VITALS: BP 114/68; PULSE 70; RESP 20; O2SAT 96
[2025-02-17 14:51] VITALS: BP 126/78; PULSE 70; RESP 22; O2SAT 96
== END 2025-02-17 15:08 | disposition home or self-care (01) ==
PROVIDERS: PCP Internal Medicine; Referring Provider Internal Medicine; Visit Provider Internal Medicine Gastroenterology
PROC: 0DJ08ZZ Inspection of Upper Intestinal Tract, Via Natural or Artificial Opening Endoscopic (ICD-10-PCS; CPT 43239; principal; 2025-02-17 14:00)
DX: K21.9 Gastro-esophageal reflux disease without esophagitis (principal); K44.9 Diaphragmatic hernia without obstruction or gangrene; K29.70 Gastritis, unspecified, without bleeding; I11.0 Hypertensive heart disease with heart failure; I50.9 Heart failure, unspecified; I48.91 Unspecified atrial fibrillation; G47.33 Obstructive sleep apnea (adult) (pediatric); E66.01 Morbid (severe) obesity due to excess calories; Z68.41 Body mass index [BMI] 40.0-44.9, adult; Z79.01 Long term (current) use of anticoagulants; Z79.83 Long term (current) use of bisphosphonates; Z99.89 Dependence on other enabling machines and devices; Z98.890 Other specified postprocedural states; Z90.49 Acquired absence of other specified parts of digestive tract; Z87.891 Personal history of nicotine dependence; Z87.19 Personal history of other diseases of the digestive system
CPT/HCPCS: 43239; 88305; J2003; J2704; J7120